=== PATIENT | male | born 1935 | race Caucasian/White ===

== ENCOUNTER → 2017-01-20 | Outpatient (CLI) | payer OTHER, MEDICAID ==
[2016-03-14 09:59] VITALS: BP 140/82
== END ==
LOC: LAB 12:32
PROVIDERS: ATTEND Internal Medicine
DX: Z12.11 Encounter for screening for malignant neoplasm of colon (principal); R19.5 Other fecal abnormalities
CPT/HCPCS: 82270

== ENCOUNTER 2017-09-04 15:49 | Emergency (ER) | payer OTHER, MEDICAID ==
[2017-09-04 16:06] VITALS: BMI 26.4
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
[2017-09-04] MEDS ORDERED: ZOFRAN INJ 4 MG VIAL IVP ONE (17:48)
[2017-09-04] MEDS ORDERED: ZOFRAN INJ 4 MG VIAL ONE (17:49)
[2017-09-04 18:48] LABS: BASOPHILS % (AUTO) 0.6 % (0.2-1.0); EOSINOPHILS # (AUTO) 0.1 x10^3/uL (0.0-0.2); EOSINOPHILS % (AUTO) 1.4 % (0.9-2.9); HEMATOCRIT 47.3 % (42.0-54.0); HEMOGLOBIN 15.7 g/dL (13.5-18.0); LYMPHOCYTES # (AUTO) 1.1 X10^3/uL (1.3-2.9); MEAN CORPUSCULAR HEMOGLOBIN 30.2 pg (27.0-34.0); MEAN CORPUSCULAR HGB CONC 33.3 g/dL (33.0-35.0); MEAN CORPUSCULAR VOLUME 90.7 fL (80.0-100.0); MONOCYTES # (AUTO) 0.9 x10^3/uL (0.3-0.8); MONOCYTES % (AUTO) 11.6 % (0.0-13.0); NEUTROPHILS # (AUTO) 5.4 x10^3/uL (2.2-4.8); NEUTROPHILS % (AUTO) 71.4 % (42.0-75.0); PLATELET COUNT 242 X10^3/uL (150.0-450.0); RED BLOOD COUNT 5.22 X10^6/uL (4.7-6.0); RED CELL DISTRIBUTION WIDTH 15.4 % (11.6-16.5); WHITE BLOOD COUNT 7.5 X10^3/uL (3.6-10.0)
[2017-09-04 19:03] LABS: BLOOD UREA NITROGEN 17 mg/dL (7-18); CARBON DIOXIDE 30.7 mmol/L (21-32); CHLORIDE 102 mmol/L (98-107); CREATININE 1.05 mg/dL (0.70-1.30); SODIUM 141 mmol/L (136-145); TROPONIN I 0.02 ng/mL (0-1.5); eGFR BLACK RACES > 60 (>60); eGFR NON BLACK RACES > 60 (>60)
[2017-09-04 19:07] LABS: ALANINE AMINOTRANSFERASE 19 Units/L (12-78); ALKALINE PHOSPHATASE 70 Units/L (46-116); ASPARTATE AMINO TRANSFERASE 22 Units/L (15-37); CKMB % 1.2 % (<4); CREATINE KINASE 135 Units/L (39-308); CREATINE KINASE MB 1.6 ng/mL (0-4.0); TOTAL PROTEIN 8.1 g/dL (6.4-8.2)
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
[2017-09-04 20:32] VITALS: BP 167/95
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
== END 2017-09-04 20:32 | disposition home or self-care (01) ==
LOC: ER 15:49
DX: S02.402A Zygomatic fracture, unspecified side, initial encounter for closed fracture (principal); S09.8XXA Other specified injuries of head, initial encounter; V87.7XXA Person injured in collision between other specified motor vehicles (traffic), initial encounter
CPT/HCPCS: 36415; 70450; 70486; 71010; 72125; 72170; 80053; 82550; 82553; 84484; 85025; 93005; 93010; 96365; 96374; 99283; J2405

== ENCOUNTER → 2018-02-09 | Outpatient (CLI) | payer OTHER, MEDICAID ==
--- NOTE | 2018-02-09 16:21 | CT ---
HISTORY: TIA, hypertension Study: CT brain without contrast Comparison: September 04, 2017 Technique: Multiple axial images of the brain were obtained from the skull base to the vertex withou t administration of IV contrast. AEC was utilized. Findings: No acute intraparenchymal hemorrhage or mass can be identified. No extra-axial fluid collections are seen. No alteration in the attenuation of the brain parenchyma can be identified to suggest acute o r subacute ischemic change. The ventricular system is symmetric and nondilated. There is chronic pe riventricular white matter disease observed and age-appropriate generalized atrophy. Extracranial st ructures are grossly unremarkable. IMPRESSION: Intra-axial changes of advancing chronological age without acute intracranial process. Reported By:
== END ==
LOC: RAD 15:12
PROVIDERS: ATTEND Internal Medicine
DX: G45.8 Other transient cerebral ischemic attacks and related syndromes (principal); I10 Essential (primary) hypertension
CPT/HCPCS: 70450

== ENCOUNTER 2019-05-18 10:51 | Inpatient (IN) ==
[2019-05-18] MEDS ORDERED: SOLU-Medrol 40 MG VIAL IVP ONE (21:20)
[2019-05-18] MEDS ORDERED: FORTAZ or TAZICEF VIAL INJ IVP ONE (21:20)
[2019-05-18] MEDS ORDERED: RESTORIL CAP 15 MG PO ONE (22:45)
[2019-05-19] MEDS ORDERED: FORTAZ or TAZICEF VIAL INJ IVP ONE ×3 (06:00→22:00)
[2019-05-19] MEDS ORDERED: SOLU-Medrol 40 MG VIAL IVP ONE ×3 (06:00→22:00)
[2019-05-19] MEDS ORDERED: LEVAQUIN PREMIX IV 750 MG IV ONE (09:00)
[2019-05-19] MEDS ORDERED: NORCO 5/325 MG TAB PO ONE (12:00)
[2019-05-19] MEDS ORDERED: SENOKOT PO ONE (14:19)
[2019-05-19] MEDS ORDERED: ANTIVERT TAB 25 MG PO ONE ×2 (14:19→21:23)
[2019-05-19] MEDS ORDERED: ZANTAC PO ONE (14:19)
[2019-05-19] MEDS ORDERED: ZESTRIL TAB 10 MG PO ONE ×2 (14:19→21:23)
[2019-05-19] MEDS ORDERED: DIFLUCAN PO ONE (14:20)
[2019-05-19] MEDS ORDERED: KEFLEX CAP 500 MG PO ONE (14:20)
[2019-05-19] MEDS ORDERED: AMBIEN PO ONE (23:00)
[2019-05-19] MEDS ORDERED: NORCO 10/325 TAB PO ONE (23:00)
[2019-05-20] MEDS ORDERED: FORTAZ or TAZICEF VIAL INJ IVP ONE ×3 (05:00→21:10)
[2019-05-20] MEDS ORDERED: SOLU-Medrol 40 MG VIAL IVP ONE ×3 (05:00→21:10)
[2019-05-20] MEDS ORDERED: DIFLUCAN PO ONE (08:12)
[2019-05-20] MEDS ORDERED: LEVAQUIN PREMIX IV 750 MG IV ONE (08:12)
[2019-05-20] MEDS ORDERED: ZESTRIL TAB 10 MG PO ONE ×2 (08:12→21:10)
[2019-05-20] MEDS ORDERED: ANTIVERT TAB 25 MG PO ONE ×2 (08:12→21:10)
[2019-05-20] MEDS ORDERED: ZANTAC PO ONE (08:12)
[2019-05-20] MEDS ORDERED: SENOKOT PO ONE (08:12)
[2019-05-20] MEDS ORDERED: NORCO 10/325 TAB PO ONE ×2 (13:00→23:00)
[2019-05-20] MEDS ORDERED: AMBIEN PO ONE (23:00)
[2019-05-21 06:12] LABS: BASOPHILS % (AUTO) 0.1 % (0.2-1.0); HEMOGLOBIN 12.8 g/dL (13.5-18.0); LYMPHOCYTES # (AUTO) 1.5 X10^3/uL (1.3-2.9); LYMPHOCYTES % (AUTO) 10.3 % (21.0-51.0); MEAN CORPUSCULAR HEMOGLOBIN 30.8 pg (27.0-34.0); MEAN CORPUSCULAR HGB CONC 33.8 g/dL (33.0-35.0); MEAN CORPUSCULAR VOLUME 91.3 fL (80.0-100.0); MEAN PLATELET VOLUME 7.3 fL (7.4-11.0); MONOCYTES # (AUTO) 0.5 x10^3/uL (0.3-0.8); MONOCYTES % (AUTO) 3.6 % (0.0-13.0); NEUTROPHILS # (AUTO) 12.4 x10^3/uL (2.2-4.8); PLATELET COUNT 328 X10^3/uL (150.0-450.0); RED BLOOD COUNT 4.17 X10^6/uL (4.7-6.0); RED CELL DISTRIBUTION WIDTH 15.5 % (11.6-16.5); WHITE BLOOD COUNT 14.4 X10^3/uL (3.6-10.0)
[2019-05-21 06:22] LABS: ALANINE AMINOTRANSFERASE 21 Units/L (12-78); ALBUMIN 2.4 g/dL (3.4-5.0); ALKALINE PHOSPHATASE 51 Units/L (46-116); ASPARTATE AMINO TRANSFERASE 22 Units/L (15-37); BLOOD UREA NITROGEN 24 mg/dL (7-18); CALCIUM 8.2 mg/dL (8.5-10.1); CARBON DIOXIDE 25.3 mmol/L (21-32); CHLORIDE 105 mmol/L (98-107); COR CA(FOR HYPOALB) 9.5 mg/dL (8.5-10.1); COR NA(FOR HYPERGLY) 141 mmol/L (136-145); CREATININE 1.01 mg/dL (0.70-1.30); SODIUM 140 mmol/L (136-145); TOTAL PROTEIN 6.4 g/dL (6.4-8.2); eGFR NON BLACK RACES > 60 (>60)
[2019-05-21] MEDS ORDERED: XOPENEX 1.25 MG/3 ML NEBULE NEB SCH (08:00)
[2019-05-21 08:01] LABS: PLATELET MORPHOLOGY COMMENT NORMAL (NORMAL)
[2019-05-21 09:31] LABS: ALANINE AMINOTRANSFERASE 13 Units/L (12-78); ALBUMIN 2.9 g/dL (3.4-5.0); ALKALINE PHOSPHATASE 54 Units/L (46-116); ASPARTATE AMINO TRANSFERASE 17 Units/L (15-37); BLOOD UREA NITROGEN 25 mg/dL (7-18); CALCIUM 8.6 mg/dL (8.5-10.1); CARBON DIOXIDE 26.6 mmol/L (21-32); CHLORIDE 99 mmol/L (98-107); COR CA(FOR HYPOALB) 9.5 mg/dL (8.5-10.1); COR NA(FOR HYPERGLY) 135 mmol/L (136-145); CREATININE 1.21 mg/dL (0.70-1.30); LACTIC ACID 0.9 mmol/L (0.4-2.0); SODIUM 135 mmol/L (136-145); TOTAL PROTEIN 7.7 g/dL (6.4-8.2); eGFR NON BLACK RACES > 60 (>60)
[2019-05-21 09:33] LABS: BASOPHILS % (AUTO) 0.3 % (0.2-1.0); EOSINOPHILS % (AUTO) 0.9 % (0.9-2.9); HEMATOCRIT 41.5 % (42.0-54.0); LYMPHOCYTES % (AUTO) 15.4 % (21.0-51.0); MEAN CORPUSCULAR HEMOGLOBIN 31.2 pg (27.0-34.0); MEAN CORPUSCULAR HGB CONC 33.8 g/dL (33.0-35.0); MEAN CORPUSCULAR VOLUME 92.2 fL (80.0-100.0); MEAN PLATELET VOLUME 7.6 fL (7.4-11.0); MONOCYTES % (AUTO) 18.7 % (0.0-13.0); NEUTROPHILS % (AUTO) 64.7 % (42.0-75.0); PLATELET COUNT 286 X10^3/uL (150.0-450.0); RED CELL DISTRIBUTION WIDTH 15.5 % (11.6-16.5); WHITE BLOOD COUNT 8.5 X10^3/uL (3.6-10.0)
[2019-05-21 09:34] LABS: EOSINOPHILS # (AUTO) 0.1 x10^3/uL (0.0-0.2); LYMPHOCYTES # (AUTO) 1.3 X10^3/uL (1.3-2.9); MONOCYTES # (AUTO) 1.6 x10^3/uL (0.3-0.8); NEUTROPHILS # (AUTO) 5.5 x10^3/uL (2.2-4.8)
[2019-05-21 09:38] LABS: CKMB % 0.8 % (<4); CREATINE KINASE MB 1.1 ng/mL (0-4.0)
[2019-05-21 09:39] LABS: CKMB % 1.2 % (<4); CREATINE KINASE 106 Units/L (39-308); CREATINE KINASE MB 1.3 ng/mL (0-4.0)
[2019-05-21 09:40] LABS: TROPONIN I < 0.02 ng/mL (0-1.5)
[2019-05-21 09:41] LABS: BLOOD UREA NITROGEN 19 mg/dL (7-18); CARBON DIOXIDE 24.9 mmol/L (21-32); CHLORIDE 103 mmol/L (98-107); COR NA(FOR HYPERGLY) 139 mmol/L (136-145); CREATININE 1.06 mg/dL (0.70-1.30); SODIUM 137 mmol/L (136-145); eGFR NON BLACK RACES > 60 (>60)
[2019-05-21 09:42] LABS: ALANINE AMINOTRANSFERASE 18 Units/L (12-78); ALBUMIN 2.6 g/dL (3.4-5.0); ALKALINE PHOSPHATASE 54 Units/L (46-116); ASPARTATE AMINO TRANSFERASE 16 Units/L (15-37); CALCIUM 8.4 mg/dL (8.5-10.1); COR CA(FOR HYPOALB) 9.5 mg/dL (8.5-10.1); TOTAL PROTEIN 7.4 g/dL (6.4-8.2)
[2019-05-21 09:43] LABS: RED BLOOD COUNT 4.44 X10^6/uL (4.7-6.0); WHITE BLOOD COUNT 5.9 X10^3/uL (3.6-10.0)
[2019-05-21 09:44] LABS: HEMATOCRIT 41.4 % (42.0-54.0); HEMOGLOBIN 13.8 g/dL (13.5-18.0); MEAN CORPUSCULAR HEMOGLOBIN 31.1 pg (27.0-34.0); MEAN CORPUSCULAR HGB CONC 33.3 g/dL (33.0-35.0); MEAN CORPUSCULAR VOLUME 93.2 fL (80.0-100.0)
[2019-05-21 09:45] LABS: BASOPHILS % (AUTO) 0.2 % (0.2-1.0); LYMPHOCYTES # (AUTO) 0.8 X10^3/uL (1.3-2.9); LYMPHOCYTES % (AUTO) 13.7 % (21.0-51.0); MEAN PLATELET VOLUME 7.5 fL (7.4-11.0); MONOCYTES # (AUTO) 0.2 x10^3/uL (0.3-0.8); MONOCYTES % (AUTO) 2.7 % (0.0-13.0); NEUTROPHILS # (AUTO) 4.9 x10^3/uL (2.2-4.8); NEUTROPHILS % (AUTO) 83.4 % (42.0-75.0); PLATELET COUNT 286 X10^3/uL (150.0-450.0); RED CELL DISTRIBUTION WIDTH 15.7 % (11.6-16.5)
[2019-05-21 09:46] LABS: BLOOD UREA NITROGEN 24 mg/dL (7-18); CALCIUM 8.3 mg/dL (8.5-10.1); CARBON DIOXIDE 25.3 mmol/L (21-32); CHLORIDE 106 mmol/L (98-107); COR NA(FOR HYPERGLY) 141 mmol/L (136-145); CREATININE 1.08 mg/dL (0.70-1.30); SODIUM 140 mmol/L (136-145); eGFR NON BLACK RACES > 60 (>60)
[2019-05-21 09:47] LABS: ALANINE AMINOTRANSFERASE 19 Units/L (12-78); ALBUMIN 2.4 g/dL (3.4-5.0); ALKALINE PHOSPHATASE 50 Units/L (46-116); ASPARTATE AMINO TRANSFERASE 16 Units/L (15-37); COR CA(FOR HYPOALB) 9.6 mg/dL (8.5-10.1); HEMATOCRIT 38.3 % (42.0-54.0); HEMOGLOBIN 12.8 g/dL (13.5-18.0); RED BLOOD COUNT 4.15 X10^6/uL (4.7-6.0); TOTAL PROTEIN 6.7 g/dL (6.4-8.2); WHITE BLOOD COUNT 11.3 X10^3/uL (3.6-10.0)
[2019-05-21 09:48] LABS: BAND NEUTROPHILS % 5 % (0-10); BASOPHILS % (AUTO) 0.2 % (0.2-1.0); LYMPHOCYTES # (AUTO) 1.4 X10^3/uL (1.3-2.9); MEAN CORPUSCULAR HGB CONC 33.5 g/dL (33.0-35.0); MEAN CORPUSCULAR VOLUME 92.3 fL (80.0-100.0); MEAN PLATELET VOLUME 7.7 fL (7.4-11.0); MONOCYTES # (AUTO) 0.6 x10^3/uL (0.3-0.8); MONOCYTES % (AUTO) 4.9 % (0.0-13.0); NEUTROPHILS # (AUTO) 9.4 x10^3/uL (2.2-4.8); NEUTROPHILS % (AUTO) 82.9 % (42.0-75.0); PLATELET COUNT 299 X10^3/uL (150.0-450.0); RED CELL DISTRIBUTION WIDTH 15.4 % (11.6-16.5)
[2019-05-21 09:49] LABS: PLATELET MORPHOLOGY COMMENT NORMAL (NORMAL)
[2019-05-21] MEDS: ANTIVERT TAB 25 MG PO SCH ×3 (14:29→21:12)
[2019-05-21] MEDS: FORTAZ or TAZICEF VIAL INJ IVP SCH ×2 (14:32→21:12)
[2019-05-21] MEDS: SOLU-Medrol 125 MG VIAL IVP SCH ×2 (14:32→21:11)
[2019-05-21] MEDS: DIFLUCAN PO SCH (14:37)
[2019-05-21] MEDS: LEVAQUIN PREMIX IV 750 MG 750 MG/150 ML BAG IV SCH (14:37)
[2019-05-21] MEDS: SENOKOT PO SCH (14:38)
[2019-05-21] MEDS: COREG TAB 6.25 MG PO SCH ×2 (14:38→21:12)
[2019-05-21] MEDS: ZESTRIL TAB 10 MG PO SCH ×2 (14:38→21:12)
[2019-05-21] MEDS: ZANTAC PO SCH (14:38)
[2019-05-21 15:11] LABS: ABG BASE EXCESS 1.3 mmol/L (-2.0-2.0); ABG HCO3 26.6 mmol/L (22-26)
[2019-05-21 15:12] LABS: FRACTIONATED INSPIRED OXYGEN 28
[2019-05-21 15:30] LABS: ABG BASE EXCESS 1.2 mmol/L (-2.0-2.0)
[2019-05-21 15:31] LABS: ABG ALLEN TEST POS; FRACTIONATED INSPIRED OXYGEN 21
[2019-05-21] MEDS: NORCO 10/325 TAB PO PRN ×2 (17:07→23:10)
[2019-05-21] MEDS: AMBIEN PO PRN (23:10)
[2019-05-22] MEDS: XOPENEX 1.25 MG/3 ML NEBULE NEB SCH ×4 (00:05→17:19)
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
[2019-05-22 05:17] LABS: BASOPHILS % (AUTO) 0.1 % (0.2-1.0); HEMOGLOBIN 14.3 g/dL (13.5-18.0); LYMPHOCYTES # (AUTO) 2.1 X10^3/uL (1.3-2.9); LYMPHOCYTES % (AUTO) 14.1 % (21.0-51.0); MEAN CORPUSCULAR HEMOGLOBIN 30.8 pg (27.0-34.0); MEAN CORPUSCULAR HGB CONC 33.2 g/dL (33.0-35.0); MEAN CORPUSCULAR VOLUME 92.8 fL (80.0-100.0); MEAN PLATELET VOLUME 7.3 fL (7.4-11.0); MONOCYTES # (AUTO) 0.4 x10^3/uL (0.3-0.8); MONOCYTES % (AUTO) 2.5 % (0.0-13.0); NEUTROPHILS # (AUTO) 12.5 x10^3/uL (2.2-4.8); NEUTROPHILS % (AUTO) 83.3 % (42.0-75.0); PLATELET COUNT 351 X10^3/uL (150.0-450.0); RED BLOOD COUNT 4.63 X10^6/uL (4.7-6.0); RED CELL DISTRIBUTION WIDTH 15.6 % (11.6-16.5)
[2019-05-22] MEDS: NORCO 10/325 TAB PO PRN ×4 (05:20→22:58)
[2019-05-22 05:26] LABS: BLOOD UREA NITROGEN 27 mg/dL (7-18); CALCIUM 8.5 mg/dL (8.5-10.1); CARBON DIOXIDE 25.8 mmol/L (21-32); CHLORIDE 104 mmol/L (98-107); COR NA(FOR HYPERGLY) 139 mmol/L (136-145); CREATININE 0.97 mg/dL (0.70-1.30); SODIUM 139 mmol/L (136-145); eGFR NON BLACK RACES > 60 (>60)
[2019-05-22] MEDS: FORTAZ or TAZICEF VIAL INJ IVP SCH ×3 (05:26→20:59)
[2019-05-22] MEDS: SENOKOT PO SCH (09:15)
[2019-05-22] MEDS: ANTIVERT TAB 25 MG PO SCH ×2 (09:15→20:55)
[2019-05-22] MEDS: ZESTRIL TAB 10 MG PO SCH ×2 (09:15→20:55)
[2019-05-22] MEDS: DIFLUCAN PO SCH (09:15)
[2019-05-22] MEDS: COREG TAB 6.25 MG PO SCH ×2 (09:15→20:55)
[2019-05-22] MEDS: ZANTAC PO SCH (09:15)
[2019-05-22] MEDS: LEVAQUIN PREMIX IV 750 MG 750 MG/150 ML BAG IV SCH (09:15)
[2019-05-22] MEDS: SOLU-Medrol 125 MG VIAL IVP SCH (11:04)
[2019-05-22] MEDS: AMBIEN PO PRN (22:58)
[2019-05-23] MEDS: XOPENEX 1.25 MG/3 ML NEBULE NEB SCH ×4 (00:36→17:13)
[2019-05-23 04:38] LABS: BASOPHILS % (AUTO) 0.4 % (0.2-1.0); EOSINOPHILS # (AUTO) 0.1 x10^3/uL (0.0-0.2); EOSINOPHILS % (AUTO) 0.6 % (0.9-2.9); HEMATOCRIT 43.4 % (42.0-54.0); HEMOGLOBIN 14.4 g/dL (13.5-18.0); LYMPHOCYTES # (AUTO) 3.2 X10^3/uL (1.3-2.9); LYMPHOCYTES % (AUTO) 24.7 % (21.0-51.0); MEAN CORPUSCULAR HEMOGLOBIN 30.4 pg (27.0-34.0); MEAN CORPUSCULAR HGB CONC 33.1 g/dL (33.0-35.0); MEAN PLATELET VOLUME 7.1 fL (7.4-11.0); MONOCYTES # (AUTO) 0.9 x10^3/uL (0.3-0.8); MONOCYTES % (AUTO) 7.3 % (0.0-13.0); NEUTROPHILS # (AUTO) 8.6 x10^3/uL (2.2-4.8); PLATELET COUNT 337 X10^3/uL (150.0-450.0); RED BLOOD COUNT 4.72 X10^6/uL (4.7-6.0); RED CELL DISTRIBUTION WIDTH 15.3 % (11.6-16.5); WHITE BLOOD COUNT 12.9 X10^3/uL (3.6-10.0)
[2019-05-23 04:53] LABS: ALANINE AMINOTRANSFERASE 34 Units/L (12-78); ALBUMIN 2.6 g/dL (3.4-5.0); ALKALINE PHOSPHATASE 43 Units/L (46-116); ASPARTATE AMINO TRANSFERASE 23 Units/L (15-37); BLOOD UREA NITROGEN 26 mg/dL (7-18); CALCIUM 8.4 mg/dL (8.5-10.1); CARBON DIOXIDE 28.7 mmol/L (21-32); CHLORIDE 102 mmol/L (98-107); COR CA(FOR HYPOALB) 9.5 mg/dL (8.5-10.1); SODIUM 138 mmol/L (136-145); TOTAL PROTEIN 6.5 g/dL (6.4-8.2); eGFR NON BLACK RACES > 60 (>60)
[2019-05-23] MEDS: FORTAZ or TAZICEF VIAL INJ IVP SCH ×3 (05:10→21:28)
[2019-05-23] MEDS: NORCO 10/325 TAB PO PRN ×4 (05:10→22:54)
[2019-05-23] MEDS: LEVAQUIN PREMIX IV 750 MG 750 MG/150 ML BAG IV SCH (08:30)
[2019-05-23] MEDS: COREG TAB 6.25 MG PO SCH ×2 (08:30→21:28)
[2019-05-23] MEDS: SENOKOT PO SCH (08:30)
[2019-05-23] MEDS: DIFLUCAN PO SCH (08:30)
[2019-05-23] MEDS: ANTIVERT TAB 25 MG PO SCH ×2 (08:30→21:28)
[2019-05-23] MEDS: ZANTAC PO SCH (08:30)
[2019-05-23] MEDS: ZESTRIL TAB 10 MG PO SCH ×2 (08:30→21:28)
[2019-05-23] MEDS ORDERED: DUONEB 0.5 MG/3 MG NEB SCH (10:15)
[2019-05-23] MEDS: Atrovent NEB TX 0.02% NEB SCH ×2 (12:00→17:13)
[2019-05-23] MEDS: AMBIEN PO PRN (22:54)
[2019-05-24] MEDS: Atrovent NEB TX 0.02% NEB SCH ×3 (00:50→12:05)
[2019-05-24] MEDS: XOPENEX 1.25 MG/3 ML NEBULE NEB SCH ×3 (00:50→12:05)
[2019-05-24] MEDS: NORCO 10/325 TAB PO PRN ×2 (04:56→11:23)
[2019-05-24] MEDS: FORTAZ or TAZICEF VIAL INJ IVP SCH ×2 (05:02→13:49)
[2019-05-24 05:10] LABS: BASOPHILS % (AUTO) 0.2 % (0.2-1.0); EOSINOPHILS # (AUTO) 0.2 x10^3/uL (0.0-0.2); EOSINOPHILS % (AUTO) 1.9 % (0.9-2.9); HEMATOCRIT 42.5 % (42.0-54.0); HEMOGLOBIN 14.3 g/dL (13.5-18.0); LYMPHOCYTES # (AUTO) 3.3 X10^3/uL (1.3-2.9); LYMPHOCYTES % (AUTO) 27.1 % (21.0-51.0); MEAN CORPUSCULAR HEMOGLOBIN 30.5 pg (27.0-34.0); MEAN CORPUSCULAR HGB CONC 33.6 g/dL (33.0-35.0); MEAN CORPUSCULAR VOLUME 90.9 fL (80.0-100.0); MEAN PLATELET VOLUME 6.9 fL (7.4-11.0); MONOCYTES # (AUTO) 0.9 x10^3/uL (0.3-0.8); MONOCYTES % (AUTO) 7.3 % (0.0-13.0); NEUTROPHILS # (AUTO) 7.8 x10^3/uL (2.2-4.8); NEUTROPHILS % (AUTO) 63.5 % (42.0-75.0); PLATELET COUNT 328 X10^3/uL (150.0-450.0); RED BLOOD COUNT 4.67 X10^6/uL (4.7-6.0); RED CELL DISTRIBUTION WIDTH 15.4 % (11.6-16.5); WHITE BLOOD COUNT 12.2 X10^3/uL (3.6-10.0)
[2019-05-24 06:52] LABS: ALANINE AMINOTRANSFERASE 24 Units/L (12-78); ALBUMIN 2.5 g/dL (3.4-5.0); ALKALINE PHOSPHATASE 45 Units/L (46-116); ASPARTATE AMINO TRANSFERASE 22 Units/L (15-37); BLOOD UREA NITROGEN 26 mg/dL (7-18); CALCIUM 8.2 mg/dL (8.5-10.1); CHLORIDE 102 mmol/L (98-107); COR CA(FOR HYPOALB) 9.4 mg/dL (8.5-10.1); CREATININE 0.94 mg/dL (0.70-1.30); SODIUM 139 mmol/L (136-145); TOTAL PROTEIN 6.3 g/dL (6.4-8.2); eGFR NON BLACK RACES > 60 (>60)
[2019-05-24] MEDS: ANTIVERT TAB 25 MG PO SCH (08:16)
[2019-05-24] MEDS: DIFLUCAN PO SCH (08:16)
[2019-05-24] MEDS: SENOKOT PO SCH (08:16)
[2019-05-24] MEDS: ZANTAC PO SCH (08:16)
[2019-05-24] MEDS: ZESTRIL TAB 10 MG PO SCH (08:16)
[2019-05-24] MEDS: LEVAQUIN PREMIX IV 750 MG 750 MG/150 ML BAG IV SCH (08:17)
[2019-05-24] MEDS: COREG TAB 6.25 MG PO SCH (08:26)
[2019-05-24 16:06] VITALS: BP 134/71
== END 2019-05-24 16:55 | disposition home health service (06) | DRG 190 ==
LOC: ER 10:51 → MED/SURG 17:36
PROVIDERS: ADMIT Internal Medicine; ATTEND Internal Medicine
DX: R09.02 Hypoxemia; J44.9 Chronic obstructive pulmonary disease, unspecified; R07.89 Other chest pain; R00.0 Tachycardia, unspecified; R53.1 Weakness; I10 Essential (primary) hypertension; B96.89 Other specified bacterial agents as the cause of diseases classified elsewhere; I71.02 Dissection of abdominal aorta; J20.8 Acute bronchitis due to other specified organisms
CPT/HCPCS: 36415; 36600; 71010; 71020; 71045; 71046; 71275; 80048; 80053; 82550; 82553; 82803; 83605; 84484; 85025; 85378; 87040; 87070; 87077; 87186; 87205; 93005; 94640; 96365; 96367; 96374; 96375; 99284; A4222; J0713; J1956; J2920; J2930; J7030; J7050; J7644

== ENCOUNTER 2021-07-26 12:50 | Observation (INO) ==
[2021-07-26 13:04] VITALS: BMI 30.7
[2021-07-26] MEDS ORDERED: NS 1000 ML 1,000 ML IV STA (13:08)
--- NOTE | 2021-07-26 13:08 | DR.EXTPAIN ---
HPI Time seen Time Seen by Provider: 07/26/21 12:54 PCP Primary Care Physician: HPI Comment HPI Comment: PATIENT WITH A HISTORY OF COPD FELL AMBULATING WITH WALKER LAST NIGHT, STRUCK BACK OF HEAD, COMPLAINS OF NECK PAIN AND BACK PAIN, LAID OF FLOOR SINCE MIDNIGHT TO 8AM. DENEIS HEADACHE, BLURRED VISION, NUMBNESS, TINGLING OR WEAKNESS IN EXTREMITIES. Complaint/Symptoms Chief Complaint Doctor Comments: FALL LAST NIGHT, PAIN TO BACK OF HEAD NECK BACK AND SHOULDER Chief Complaint:: PT ARRIVED PER [facility] FROM HOME W/ C/O LEFT SHOULDER PAIN, LOWER BACK PAIN, & BRUISING TO RIGHT ARM D/T S/P FALL LAST NIGHT. PT STATES HE HAS HX OF CHRONIC BACK PAIN. COVID-19 Coronavirus risk:travel/contact w/high risk person: No Has patient experienced Coronavirus symptoms: No Source History Provided: Patient Mode of arrival Mode of Arrival: EMS Timing Onset of Chief Complaint: 07/25/21 Context History of: Arthritis Associated signs and symptoms Associated Signs and Symptoms: Weakness and Pain PMH PMH Past Medical History: Yes Past Medical History: COPD and Hypertension Past Surgical History: Yes Surgical History: Ortho Surgery Family History History of Family Medical Conditions: Yes Family Medical History: Hypertension Social History Do you use any recreational Drugs:: No Travel Risk Coronavirus risk:travel/contact w/high risk person: No Has patient experienced Coronavirus symptoms: No Infectious screening Have you traveled outside the country in the last 6 months?: No Isolation: Standard ROS Review of Systems Constitutional: See HPI Eyes: No Symptoms Reported ENTM: No Symptoms Reported Respiratoy: No Symptoms Reported Cardiovascular: No Symptoms Reported Gastrointestinal/Abdominal: No Symptoms Reported Genitourinary: No Symptoms Reported Neurological: No Symptoms Reported Musculoskeletal: See HPI, Back Pain, Joint Pain (LEFT SHOULDER PAIN) and Neck Integumentary: Bruises (RIGHT PROXIMAL FOREARM AND ELBOW) Hematologic/Lymphatic: No Symptoms Reported Endocrine: No Symptoms Reported Psychiatric: No Symptoms Reported All Other Systems: Reviewed and Negative PE Vital Signs Vitals: Temperature 98.4 F Pulse Rate 93 Respiratory Rate 24 Blood Pressure [Left Arm] 119/74 Blood Pressure 146/78 O2 Sat by Pulse Oximetry 92 General General Appearance: Alert and In No Apparent Distress (ARRIVIES TO EMERGENCY ALERT AND APPROPRIATE) Head Head Exam: Atraumatic Eyes Eye exam: Normal Appearance, PERRL and EOMI ENT ENT Exam: Normal Exam, Normal Oropharynx and Normal External Ear Exam Neck Neck Exam: Normal Inspection, Full ROM and Trachea Midline Chest Chest Inspection: Normal Inspection and Symmetric Chest Wall Rise Respiratory Respiratory Exam: Normal Lung Sounds Bilat Respiratory Exam: Bilateral: Clear to Auscultation Cardiovascular Cardiovascular Exam: Regular Rate and Normal Rhythm Abdominal Exam Abdominal Exam: Normal Inspection, Normal Bowel Sounds and Soft (NONTENDER) Extremities Extremities Exam: Tenderness (LEFT HUMERAL HEAD, NO SWELLING OR CREPITUS) Upper Extremities Shoulder Exam: Normal Inspection, Full ROM and Tenderness Arm Exam: Ecchymosis (PROXIMAL LATERAL RIGHT FOREARM, NO CREPITUS, FULL RANGE OF MOTION RIGHT ELBOW, RIGHT RADIAL PULSE 2+) Forearm Exam: Ecchymosis Lower Extremities Hip/Pelvis Exam: Normal Inspection and Full ROM Upper Leg Exam: Normal Inspection, Full ROM and Tenderness Back Back Exam: Normal Inspection, Tenderness and Vertebral Tenderness (TENDERNESS THORACIC T-7 TO LUMBAR L-4 WITH PARASPINAL TENDERNESS) Neurological Neurological Exam: Alert and Oriented X3 Skin Skin Exam: Warm and Dry MDM Differential Diagnosis Differential Diagnosis: Other (CLOSED HEAD INJURY, CERVICAL, THORACIC, LUMBAR STRAIN, CONTUSION STRAIN LEFT SHOULDER. RIGHT ELBOW) COURSE Treatment Treatment: IV NORMAL SALINE 200ML/HR, ZOFRAN 4MG, MORPHINE 2MG IV, LAN CATHETER FOR URINARY RETENTION Consultation Call Returned: 16:33 Consultation Comments: DISCUSSED WITH DR BLANCAS FOR ADMIT TO OBSERVATION ROR Labs Reviewed Laboratory Results Reviewed?: Yes Result Diagrams: 07/26/21 13:29 07/26/21 13:29 Laboratory: WBC 11.5 X10^3/uL (3.6-10.0) H 07/26/21 13:29 RBC 5.40 X10^6/uL (4.7-6.0) 07/26/21 13:29 Hgb 16.1 g/dL (13.5-18.0) 07/26/21 13:29 Hct 49.6 % (42.0-54.0) 07/26/21 13:29 MCV 91.9 fL (80.0-100.0) 07/26/21 13:29 MCH 29.8 pg (27.0-34.0) 07/26/21 13:29 MCHC 32.4 g/dL (33.0-35.0) L 07/26/21 13:29 RDW 15.3 % (11.6-16.5) 07/26/21 13:29 Plt Count 256 X10^3/uL (150.0-450.0) 07/26/21 13:29 MPV 7.9 fL (7.4-11.0) 07/26/21 13:29 Neut % (Auto) 76.5 % (42.0-75.0) H 07/26/21 13:29 Lymph % (Auto) 11.3 % (21.0-51.0) L 07/26/21 13:29 Ida % (Auto) 11.1 % (0.0-13.0) 07/26/21 13:29 Eos % (Auto) 0.5 % (0.9-2.9) L 07/26/21 13:29 Baso % (Auto) 0.6 % (0.2-1.0) 07/26/21 13:29 Neut # (Auto) 8.8 x10^3/uL (2.2-4.8) H 07/26/21 13:29 Lymph # (Auto) 1.3 X10^3/uL (1.3-2.9) 07/26/21 13:29 Ida # (Auto) 1.3 x10^3/uL (0.3-0.8) H 07/26/21 13:29 Eos # (Auto) 0.1 x10^3/uL (0.0-0.2) 07/26/21 13:29 Baso # (Auto) 0.1 X10^3/uL (0.0-0.1) 07/26/21 13:29 Absolute Nucleated RBC 0.0 /100WBC 07/26/21 13:29 Sodium 139 mmol/L (136-145) 07/26/21 13:29 Corrected Sodium TNP 07/26/21 13:29 Potassium 4.5 mmol/L (3.5-5.1) 07/26/21 13:29 Chloride 104 mmol/L (98-107) 07/26/21 13:29 Carbon Dioxide 26.9 mmol/L (21-32) 07/26/21 13:29 BUN 16 mg/dL (7-18) 07/26/21 13:29 Creatinine 1.14 mg/dL (0.70-1.30) 07/26/21 13:29 Est GFR (MDRD) Af Amer > 60 (>60) 07/26/21 13:29 Est GFR (MDRD) Non-Af > 60 (>60) 07/26/21 13:29 Glucose 107 mg/dL (65-99) H 07/26/21 13:29 Calcium 8.6 mg/dL (8.5-10.1) 07/26/21 13:29 Corrected Calcium TNP 07/26/21 13:29 Total Bilirubin 0.90 mg/dL (0.2-1.0) 07/26/21 13:29 AST 26 Units/L (15-37) 07/26/21 13:29 ALT 17 Units/L (12-78) 07/26/21 13:29 Alkaline Phosphatase 45 Units/L (46-116) L 07/26/21 13:29 Creatine Kinase 324 Units/L (39-308) H 07/26/21 13:29 Troponin I < 0.02 ng/mL (0-1.5) 07/26/21 13:29 Total Protein 7.2 g/dL (6.4-8.2) 07/26/21 13:29 Albumin 3.7 g/dL (3.4-5.0) 07/26/21 13:29 Globulin 3.5 g/dL (2.5-4.5) 07/26/21 13:29 Albumin/Globulin Ratio 1.1 Ratio (1.1-2.1) 07/26/21 13:29 Specimen Type Catherized urine 07/26/21 15:23 Urine Color Yellow (YELLOW) 07/26/21 15:23 Urine Appearance Clear (CLEAR) 07/26/21 15:23 Urine pH 7.0 (5.0 - 8.0) 07/26/21 15:23 Ur Specific [place] 1.015 (1.000-1.030) 07/26/21 15:23 Urine Protein 1+ (NEGATIVE) 07/26/21 15:23 Urine Glucose (UA) Negative (NEGATIVE) 07/26/21 15:23 Urine Ketones Negative (NEGATIVE) 07/26/21 15:23 Urine Occult Blood Negative (NEGATIVE) 07/26/21 15:23 Urine Nitrite Negative (NEGATIVE) 07/26/21 15:23 Urine Bilirubin Negative (NEGATIVE) 07/26/21 15:23 Urine Urobilinogen Normal (NORMAL) 07/26/21 15:23 Ur Leukocyte Esterase Negative (NEGATIVE) 07/26/21 15:23 Urine RBC None seen /HPF (0-3) 07/26/21 15:23 Urine WBC None seen /HPF (0-5) 07/26/21 15:23 Ur Squamous Epith Cells Rare /HPF (NEGATIVE) 07/26/21 15:23 Urine Bacteria Negative /HPF (NEGATIVE) 07/26/21 15:23 Ur Culture Indicated? No/not indicated 07/26/21 15:23 XRAY XRAY Interpreted by: Radiologist (HEAD CT SCAN- NO INTRACRANIAL ABNORMALITY, CERVICAL SPINE CT- NO EVIDENCE OF FRACTURE, THORACIC SPINE CT NO ACUTE FRACTURE, MULTIPLE DEGENERATIVE LISTHESIS, LUMBAR SPINE CT -MULTILEVEL DEGENERATIVE DISC DISEASE, OSTEOPHYTES, NO FRACTURE,) X-ray Results: CHEST XRAY-CONSISTENT WITH COPD, RIGHT FOREARM- NO EVIDENCE OF FRACTURE, RIGHT ELBOW- ARTHRITIS WITH NO EVIDENCE OF FRACTURE, LEFT SHOULDER - ARTHRITIS WITHOUT EVIDENCE OF FRACTURE EKG Rate: 95 Rhythm: NSR (OLD ANTERIOR INFARCT, NO ECTOPY OR ISCHEMIC CHANGES) Opioid Opioid Risk Tool Age (Osorio box if 16-45): No History of Preadolescent Sexual Abuse: No Total: 0 Total Score Risk Category: Low Risk Copyright: Pravin GEORGES predicting aberrant behaviors Diagnosis Discharge Problem: Frequent falls, Generalized weakness, Chronic low back pain, Acute urinary retention
[2021-07-26] MEDS ORDERED: ZOFRAN INJ 4 MG VIAL IVP ONE ×2 (13:13→16:55)
[2021-07-26] MEDS ORDERED: MORPHINE SULFATE INJ 2 MG INJ IVP ONE ×2 (13:13→16:55)
[2021-07-26] MEDS ORDERED: ZOFRAN INJ 4 MG VIAL ONE ×2 (13:23→17:15)
[2021-07-26] MEDS ORDERED: MORPHINE SULFATE INJ 2 MG INJ ONE ×2 (13:23→17:15)
[2021-07-26] MEDS ORDERED: NS 1000 ML 1,000 ML ONE (13:23)
[2021-07-26 13:46] LABS: BASOPHILS # (AUTO) 0.1 X10^3/uL (0.0-0.1); BASOPHILS % (AUTO) 0.6 % (0.2-1.0); EOSINOPHILS # (AUTO) 0.1 x10^3/uL (0.0-0.2); EOSINOPHILS % (AUTO) 0.5 % (0.9-2.9); HEMATOCRIT 49.6 % (42.0-54.0); HEMOGLOBIN 16.1 g/dL (13.5-18.0); LYMPHOCYTES # (AUTO) 1.3 X10^3/uL (1.3-2.9); LYMPHOCYTES % (AUTO) 11.3 % (21.0-51.0); MEAN CORPUSCULAR HEMOGLOBIN 29.8 pg (27.0-34.0); MEAN CORPUSCULAR HGB CONC 32.4 g/dL (33.0-35.0); MEAN CORPUSCULAR VOLUME 91.9 fL (80.0-100.0); MEAN PLATELET VOLUME 7.9 fL (7.4-11.0); MONOCYTES # (AUTO) 1.3 x10^3/uL (0.3-0.8); MONOCYTES % (AUTO) 11.1 % (0.0-13.0); NEUTROPHILS # (AUTO) 8.8 x10^3/uL (2.2-4.8); NEUTROPHILS % (AUTO) 76.5 % (42.0-75.0); PLATELET COUNT 256 X10^3/uL (150.0-450.0); RED CELL DISTRIBUTION WIDTH 15.3 % (11.6-16.5); WHITE BLOOD COUNT 11.5 X10^3/uL (3.6-10.0)
[2021-07-26 14:03] LABS: ALANINE AMINOTRANSFERASE 17 Units/L (12-78); ALBUMIN 3.7 g/dL (3.4-5.0); ALKALINE PHOSPHATASE 45 Units/L (46-116); ASPARTATE AMINO TRANSFERASE 26 Units/L (15-37); BLOOD UREA NITROGEN 16 mg/dL (7-18); CALCIUM 8.6 mg/dL (8.5-10.1); CARBON DIOXIDE 26.9 mmol/L (21-32); CHLORIDE 104 mmol/L (98-107); CREATINE KINASE 324 Units/L (39-308); CREATININE 1.14 mg/dL (0.70-1.30); SODIUM 139 mmol/L (136-145); TOTAL PROTEIN 7.2 g/dL (6.4-8.2); TROPONIN I < 0.02 ng/mL (0-1.5); eGFR NON BLACK RACES > 60 (>60)
--- NOTE | 2021-07-26 14:33 | CT ---
HISTORYFALL INJURYSTUDYBRAIN W/O CONCOMPARISONMRI of the brain from 06/10/2019.TECHNIQUEMultiple axial images of the head were performed from the skullbase to the vertex using standard departmental protocol. Sagittal and coronal reformatted images were performed. Dose reduction techniques including Automated Exposure Control (AEC) and adjustment of mA and kV were utilized.FINDINGSPatient is mildly tilted within the scanner. The lateral ventricles and basilar cisterns are patent.No parenchymal mass or hematoma. Lieberman-white differentiation appears acutely preserved. Mild low attenuation change in the subcortical and deep supratentorial white matter.No extra-axial collection.The globes are intact.The paranasal sinuses and mastoid air cells are clear.The calvarium is intact.IMPRESSIONNo acute intracranial abnormality. Mild chronic small vessel disease.Electronically signed by: Vadim Gary (Jul 26, 2021 14:31:55)
--- NOTE | 2021-07-26 14:38 | CT ---
HISTORYFALL INJURYSTUDYCERVICAL SPINE W/O CONCOMPARISONCT cervical spine from 09/04/2017.TECHNIQUEMultiple axial images of the cervical spine were obtained from the skull base to the thoracic inlet without administration of IV contrast. Sagittal and coronal reformats were performed and reviewed. Dose reduction techniques including Automated Exposure Control (AEC) and adjustment of mA and kV were utilized.FINDINGSThere is mild rightward curvature of the cervical spine apex C7. Grade 1 anterolisthesis of C3-4, C4-5, and C7-T1 is likely degenerative. Severe degenerative disc disease from C5-6 through C7-T1. Moderate degenerative disc disease at other cervical levels. The right C2-3 facets are fused. Severe facet arthropathy worst at right C3-4 and left C4-5. no fracture or aggressive osseous lesion. Bony encroachment worst at the left C4-5, left C6-7, right C3-4, and right C6-7 neural foramina. Lung apices demonstrate severe emphysema. No prevertebral soft tissue swelling.IMPRESSIONNo acute fracture. Severe cervical spondylosis with multilevel degenerative listhesis.Electronically signed by: Vadim Gary (Jul 26, 2021 14:36:27)
--- NOTE | 2021-07-26 14:41 | CT ---
HISTORYfall injury, back painSTUDYTHORACIC SPINE W/O CONCOMPARISONNoneTECHNIQUEAxial images through the thoracic spine were performed without contrast. CT scan was performed following ALARA (As low as Reasonably Achievable).Coronal and Sagittal reformatted images were performed.FINDINGSThere is preservation of the thoracic kyphosis. There is no evidence of acute compression fractures. No central spinal canal stenosis. There is a central posterior disc osteophyte at T7-T8 with calcification without evidence of significant spinal canal stenosis. The included lungs demonstrate severe emphysema, no dominant masses. There are some patchy right lower lobe radiopacities. No hyperdensity in the spinal canal. There is bilateral calcifications in the pleural. No adrenal masses.No significant neural foraminal stenosis.IMPRESSIONNo acute fractures of the thoracic spine. Calcified disc osteophyte centrally at T7-T8 without significant spinal canal stenosis.Severe emphysema with pleural calcifications.Electronically signed by: Livier Ross (Jul 26, 2021 14:38:15)
--- NOTE | 2021-07-26 14:45 | RAD ---
HISTORYFALL INJURY PAIN TO LEFT SHOULDERSTUDYX-ray left shoulder three viewsCOMPARISONNoneFINDINGSProminent osteoarthritic changes are seen. No fracture or dislocation is seen.IMPRESSIONProminent arthritic changes without evidence of fracture.Electronically signed by: Bacilio Ruvalcaba (Jul 26, 2021 14:44:29)
--- NOTE | 2021-07-26 14:48 | CT ---
HISTORYLOW BACK PAINSTUDYLUMBAR SPINE W/O CONCOMPARISONNoneTECHNIQUEAxial images through the lumbar spine were performed without contrast.. CT scan was performed following ALARA (As low as Reasonably Achievable).Coronal and Sagittal reformatted images were performed.FINDINGSThere are 6 [id number] lumbar type vertebral bodies. Counting was performed from below. There is no evidence of acute compression fracture. There is 2 millimeter anterolisthesis of L5 on S1 with vacuum phenomenon, there is loss of disc height at L3-L4-, L4-L5 and L5-S1. the urinary bladder appears to be distended. 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 There is a mid aneurysm measuring 4 by 3.1 centimeterNo retroperitoneal massesThere is bilateral bridging osteophytes at the sacroiliac joint.Findings in the axial plane as follows:T11-T12 mild facet hypertrophy, no spinal canal or neural foraminal [id number] and L1-L2 demonstrate no significant spinal canal or neural foraminal stenosis with mild facet hypertrophyL2-L3 there is a broad-based disc bulging with left lateral extension, the neural foramina are patent, no spinal canal stenosisL3-L4 there is a broad-based disc osteophyte and bilateral moderate facet hypertrophy, there is moderate right and mild left neural foraminal stenosis, there is mild to moderate narrowing of the spinal canalL4-L5 there is severe facet hypertrophy. There is a broad-based disc osteophyte with a left lateral recess inferior component, there is moderate narrowing of the spinal canal, there are lateral disc osteophyte with mild to moderate bilateral neural foraminal stenosis.L5-S1 there is loss of disc height, there are lateral disc osteophytes with severe left neural foraminal stenosis, the right neural foramina is patent. There is asymmetric moderate narrowing of the spinal canal due to an enlarged left facet producing mass effect in the thecal sac.IMPRESSIONDegenerative disc disease more severe at L4-L5 with a broad-based disc osteophyte with a left lateral recess component and effacement of the left lateral recess correlation with left sciatic pain recommended and moderate narrowing of the spinal canalAsymmetric moderate narrowing of the spinal canal at L5-S1 due to an enlarged left facet producing mass effect in the thecal sac and probably in the left epidural nerve root with severe left neural foraminal stenosis due to a lateral disc osteophyte.Electronically signed by: Livier Ross (Jul 26, 2021 14:47:03)
--- NOTE | 2021-07-26 14:51 | RAD ---
HISTORYFALL INJURY, PAIN TO RIGHT ELBOWSTUDYX-ray right elbow three viewsCOMPARISONNoneFINDINGSArthritic calcifications are seen. Mild remodeling of the proximal radial head from chronic arthritis changes. No fracture or dislocation is seen. There may be joint effusion.IMPRESSIONModerate arthritic changes are seen. There may be joint effusion. A fracture is not seen. Consider follow-up x-rays if pain symptoms persist.Electronically signed by: Bacilio Ruvalcaba (Jul 26, 2021 14:49:27)
--- NOTE | 2021-07-26 15:08 | RAD ---
CHEST, 1 VIEWHISTORY: DYSPNEAStudy: AP view of the chest.Comparison:NoneFindings:Cardiomegaly. No focal consolidations, pleural effusions or pneumothorax. Osseous structures demonstrate no acute abnormality. Bilateral hyperexpansion and interstitial prominence.IMPRESSION:1. No acute cardiopulmonary process.2. Findings of COPD.Electronically signed by: LUCA MARIN (Jul 26, 2021 15:06:40)
[2021-07-26 15:31] LABS: BILIRUBIN,URINE NEGATIVE (NEGATIVE); BLOOD/HEMOGLOBIN,URINE NEGATIVE (NEGATIVE); GLUCOSE, URINE NEGATIVE (NEGATIVE); KETONES,URINE NEGATIVE (NEGATIVE); LEUKOCYTE ESTERASE ,URINE NEGATIVE (NEGATIVE); NITRITES,URINE NEGATIVE (NEGATIVE); PROTEIN,URINE 1+ (NEGATIVE); UROBILINOGEN,URINE NORMAL (NORMAL)
--- NOTE | 2021-07-26 15:39 | RAD ---
HISTORYPAIN TO RIGHT FOREARM WITH BRUISINGSTUDYFOREARM, RIGHT x-ray two viewsCOMPARISONNoneFINDINGSArthritic changes are seen in elbow. No fracture or dislocation is seen. No obvious soft tissue swelling is seen.IMPRESSIONNo fracture is seen.Electronically signed by: Bacilio Ruvalcaba (Jul 26, 2021 15:37:51)
[2021-07-26 15:59] LABS: APPEARANCE,URINE CLEAR (CLEAR); COLOR,URINE YELLOW (YELLOW)
[2021-07-26 16:00] LABS: BACTERIA,URINE NEGATIVE /HPF (NEGATIVE); RBC,URINE NONE SEEN /HPF (0-3); SQUAMOUS EPITHELIAL CELL,UR RARE /HPF (NEGATIVE)
[2021-07-26] MEDS ORDERED: ZOFRAN INJ 4 MG VIAL IVP PRN (17:21)
[2021-07-26] MEDS: NS 1000 ML 1,000 ML IV SCH (18:00)
[2021-07-26] MEDS ORDERED: DUONEB 0.5 MG/3 MG (3 mL) NEB PRN (18:30)
[2021-07-26] MEDS ORDERED: DUONEB 0.5 MG/3 MG (3 mL) NEB SCH (21:00)
[2021-07-26] MEDS: ZESTRIL TAB 10 MG PO SCH (21:14)
[2021-07-26] MEDS: MORPHINE SULFATE INJ 2 MG INJ IVP PRN (23:00)
[2021-07-27 06:23] LABS: BASOPHILS % (AUTO) 0.5 % (0.2-1.0); EOSINOPHILS # (AUTO) 0.2 x10^3/uL (0.0-0.2); EOSINOPHILS % (AUTO) 2.7 % (0.9-2.9); HEMATOCRIT 46.9 % (42.0-54.0); HEMOGLOBIN 15.3 g/dL (13.5-18.0); LYMPHOCYTES # (AUTO) 2.1 X10^3/uL (1.3-2.9); LYMPHOCYTES % (AUTO) 24.2 % (21.0-51.0); MEAN CORPUSCULAR HGB CONC 32.6 g/dL (33.0-35.0); MEAN CORPUSCULAR VOLUME 92.1 fL (80.0-100.0); MEAN PLATELET VOLUME 8.2 fL (7.4-11.0); MONOCYTES # (AUTO) 1.3 x10^3/uL (0.3-0.8); MONOCYTES % (AUTO) 15.3 % (0.0-13.0); NEUTROPHILS % (AUTO) 57.3 % (42.0-75.0); PLATELET COUNT 239 X10^3/uL (150.0-450.0); RED CELL DISTRIBUTION WIDTH 15.6 % (11.6-16.5); WHITE BLOOD COUNT 8.8 X10^3/uL (3.6-10.0)
[2021-07-27 06:50] LABS: ALANINE AMINOTRANSFERASE 16 Units/L (12-78); ALBUMIN 3.3 g/dL (3.4-5.0); ALKALINE PHOSPHATASE 39 Units/L (46-116); ASPARTATE AMINO TRANSFERASE 36 Units/L (15-37); BLOOD UREA NITROGEN 12 mg/dL (7-18); CALCIUM 8.3 mg/dL (8.5-10.1); CARBON DIOXIDE 24.7 mmol/L (21-32); CHLORIDE 105 mmol/L (98-107); COR CA(FOR HYPOALB) 8.9 mg/dL (8.5-10.1); CREATININE 0.92 mg/dL (0.70-1.30); SODIUM 140 mmol/L (136-145); TOTAL PROTEIN 6.7 g/dL (6.4-8.2); eGFR NON BLACK RACES > 60 (>60)
[2021-07-27] MEDS ORDERED: PATIENT'S HOME MEDICATION (Ranitidine Hcl 150 MG tablet) PO SCH (09:00)
[2021-07-27] MEDS: PEPCID TAB 40 MG PO SCH (09:06)
[2021-07-27] MEDS: ZESTRIL TAB 10 MG PO SCH ×2 (09:06→20:45)
[2021-07-27] MEDS: SENOKOT PO SCH (09:06)
[2021-07-27] MEDS: MORPHINE SULFATE INJ 2 MG INJ IVP PRN (09:16)
[2021-07-27] MEDS ORDERED: NORCO 10/325 TAB PO PRN (09:57)
[2021-07-27] MEDS ORDERED: VOLTAREN 1 % GEL MULTI DOSE TUBE TOP PRN (09:57)
[2021-07-27] MEDS ORDERED: LASIX PO PRN (09:57)
--- NOTE | 2021-07-27 10:48 | DR.H&P ---
H&P - History & Physical for Day of: H&P Date: 07/26/21 - Chief Complaint Chief Complaint: FALLS, NECK PAIN, HEADACHE, LEFT SHOULDER PAIN, AND LOWER BACK PAIN. - History of Present Illness History of Present Illness: IS A 86 YEAR OLD PATIENT OF OURS WHO PRESENTED TO THE ER VIA EMS. HE REPORTS THAT HE FELL WHILE AMBULATING WITH A WALKER LAST NIGHT. HE STRUCK THE BACK OF HIS HEAD. HE REPORTS LAYING IN THE FLOOR FROM MIDNIGHT UNTIL 8AM. HE COMPLAINS OF NECK PAIN, HEADACHE, LEFT SHOULDER PAIN, AND LOWER BACK PAIN. HE DENIES BLURRED VISION, NUMBNESS, TINGLING OR WEAKNESS IN EXTREMITIES. HIS PMH INCLUDES COPD, HTN, DYSLIPIDEMIA, CHRONIC LOW BACK PAIN. EXAMINATION REVEALED BRUISING TO THE RIGHT ARM. ON ARRIVAL, VITALS WERE 99.2-99-17-92%-170/93. LABS WERE OBTAINED. ABNORMAL LAB VALUES INCLUDE THE FOLLOWING: WBC 11.5, GLUCOSE 107, ALK PHOS 45, CREATINE KINASE 324. URINALYSIS WAS UNREMARKABLE. COVID, RSV, AND INFLUENZA WERE UNREMARKABLE. A BRAIN CT WAS OBTAINED AND REVEALED: No acute intracranial abnormality. Mild chronic small vessel disease. CERVICAL SPINE CT REVEALED: No acute fracture. Severe cervical spondylosis with multilevel degenerative listhesis. CHEST XRAY REVEALED: 1. No acute cardiopulmonary process. 2. Findings of COPD. RIGHT ELBOW XRAY REVEALED: Moderate arthritic changes are seen. There may be joint effusion. A fracture is not seen. Consider follow-up x-rays if pain symptoms persist. RIGHT FOREARM XRAY REVEALED: No fracture is seen. LUMBAR SPINE XRAY REVEALED: Degenerative disc disease more severe at L4-L5 with a broad-based disc osteophyte with a left lateral recess component and effacement of the left lateral recess correlation with left sciatic pain recommended and moderate narrowing of the spinal canal. Asymmetric moderate narrowing of the spinal canal at L5-S1 due to an enlarged left facet producing mass effect in the thecal sac and probably in the left epidural nerve root with severe left neural foraminal stenosis due to a lateral disc osteophyte. LEFT SHOULDER XRAY REVEALED: Prominent arthritic changes without evidence of fracture. T-SPINE CT WITHOUT CONTRAST REVEALED: No acute fractures of the thoracic spine. Calcified disc osteophyte centrally at T7-T8 without significant spinal canal stenosis. Severe emphysema with pleural calcifications. EKG REVEALED: SINUS RHYTHM WITH HR 95. PATIENT IS UNABLE TO SIT OR STAND WITHOUT MODERATE ASSISTANCE. IN THE ER, HE WAS GIVEN MORPHINE SULFATE 2MG IV X 2 DOSES, ZOFRAN 4MG IV X 2 DOSES. A LAN CATHETER WAS INSERTED. HE WAS ADMITTED TO THE HOSPITAL FOR FURTHER EVALUATION AND TREATMENT OF FREQUENT FALLS, DEHYDRATION, INTRACTABLE PAIN. HE WAS STARTED ON NORMAL SALINE AT 50 ML/HR, TORADOL 30MG IV Q8H, MORPHINE SULFATE 2MG IV Q4H PRN PAIN, ZOFRAN 4MG IV Q6H PRN NAUSEA, AND HIS HOME MEDICATIONS WERE RESUMED. OTHERWISE, WE PLAN TO FOLLOW UP WITH AM LABS AND CONTINUE TO MONITOR. TIME SPENT ON CLINICAL ASSESSMENT, REVIEWING LABS AND IMAGING, DECISION MAKING, AND DOCUMENTATION GREATER THAN 75 MINUTES. - Past Medical History Past Medical History: Hypertension, COPD - Past Surgical History Surgical History: Ortho Surgery - Family History Family Medical History: Hypertension - Social History Does patient currently use any type of tobacco product: No Have you used tobacco products in the last 12 months: No Type of Tobacco Use: None Does any household member use tobacco: No Alcohol Use: None - Medications Home Medications: No Known Drug Allergies Allergy (Verified 09/04/17 16:04) CONTINUE taking the following medications diclofenac sodium 1 ea TOPICAL PRN PRN 07/26/21 [History] furosemide [Lasix] 40 mg PO BID PRN 07/26/21 [History] gabapentin 300 mg PO TID 07/26/21 [History] meclizine 25 mg PO BID 07/26/21 [History] ondansetron HCl [Zofran] 8 mg PO PRN PRN 07/26/21 [History] ropinirole 0.5 mg PO BID 07/26/21 [History] rosuvastatin 5 mg PO HS 07/26/21 [History] - Review of Systems Constitutional: Weakness Eyes: No Symptoms Reported ENT: No Symptoms Reported Respiratory: No Symptoms Reported Cardiovascular: No Symptoms Reported Gastrointestinal: No Symptoms Reported Genitourinary: No Symptoms Reported Musculoskeletal: See HPI, Shoulder Pain, Back Pain, Neck Pain, Other (HEADACHE) Skin: Bruising Neurological: See HPI, Weakness - Physical Exam Vital Signs: Temperature 98.2 F Pulse Rate [Bilateral Radial] 83 Pulse Rate 89 Respiratory Rate 20 Blood Pressure [Left Arm] 138/82 Blood Pressure 144/59 O2 Sat by Pulse Oximetry 95 Oriented: Normal Eyes: Normal Ear: Normal Nose: Normal Throat: Normal Respiratory: Diminished Throughout Cardiovascular: Normal : Normal Auscultation: Bowel Sounds: Normal Palpation: Normal Tenderness: Normal Skin: Normal Musculoskeletal: Left, Shoulder, Arm, Back:Thoracic, Back:Lumbar, Tender Psychiatric: Normal Mood Description: Calm Affect: Normal Speech Pattern: Clear - Assessment/Plan (1) Dehydration Status: Acute Plan: ADMIT, NORMAL SALINE AT 50 ML/HR, TORADOL 30MG IV Q8H, MORPHINE SULFATE 2MG IV Q4H PRN PAIN, ZOFRAN 4MG IV Q6H PRN NAUSEA, AND HIS HOME MEDICATIONS WERE RESUMED. (2) Frequent falls Status: Acute (3) Generalized weakness Status: Acute (4) Chronic low back pain Qualifiers: Back pain laterality: unspecified Sciatica presence: unspecified whether sciatica present Qualified Code(s): M54.50 - Low back pain, unspecified; G89.29 - Other chronic pain Status: Acute - Allergies Allergies/Adverse Reactions: Allergies Allergy/AdvReac Type Severity Reaction Status Date / Time No Known Drug Allergies Allergy Verified 09/04/17 16:04
[2021-07-27] MEDS: PROTONIX INJ 40 MG VIAL IVP SCH ×2 (11:05→20:41)
[2021-07-27] MEDS: ANTIVERT TAB 25 MG PO SCH ×2 (11:05→20:43)
[2021-07-27] MEDS: REQUIP PO SCH ×2 (11:05→20:46)
[2021-07-27] MEDS: NEURONTIN CAP 300 MG PO SCH ×3 (11:06→21:00)
[2021-07-27] MEDS: TORADOL 30 MG VIAL IVP PRN ×2 (11:07→20:50)
[2021-07-27] MEDS: NS 1000 ML 1,000 ML IV SCH ×2 (14:00→22:02)
[2021-07-27] MEDS ORDERED: AMBIEN PO SCH (21:00)
[2021-07-27] MEDS ORDERED: CRESTOR TAB 10 MG PO SCH (21:00)
[2021-07-28] MEDS: MORPHINE SULFATE INJ 2 MG INJ IVP PRN (04:06)
[2021-07-28] MEDS: NEURONTIN CAP 300 MG PO SCH (05:01)
[2021-07-28 06:41] LABS: BASOPHILS % (AUTO) 0.5 % (0.2-1.0); EOSINOPHILS # (AUTO) 0.3 x10^3/uL (0.0-0.2); EOSINOPHILS % (AUTO) 3.6 % (0.9-2.9); HEMATOCRIT 44.8 % (42.0-54.0); HEMOGLOBIN 14.8 g/dL (13.5-18.0); LYMPHOCYTES # (AUTO) 1.8 X10^3/uL (1.3-2.9); LYMPHOCYTES % (AUTO) 21.1 % (21.0-51.0); MEAN CORPUSCULAR HEMOGLOBIN 30.3 pg (27.0-34.0); MEAN CORPUSCULAR HGB CONC 33.1 g/dL (33.0-35.0); MEAN CORPUSCULAR VOLUME 91.5 fL (80.0-100.0); MEAN PLATELET VOLUME 8.6 fL (7.4-11.0); MONOCYTES # (AUTO) 1.2 x10^3/uL (0.3-0.8); MONOCYTES % (AUTO) 14.8 % (0.0-13.0); PLATELET COUNT 229 X10^3/uL (150.0-450.0); RED BLOOD COUNT 4.89 X10^6/uL (4.7-6.0); RED CELL DISTRIBUTION WIDTH 15.5 % (11.6-16.5); WHITE BLOOD COUNT 8.4 X10^3/uL (3.6-10.0)
[2021-07-28 06:42] LABS: ALANINE AMINOTRANSFERASE 18 Units/L (12-78); ALKALINE PHOSPHATASE 36 Units/L (46-116); ASPARTATE AMINO TRANSFERASE 28 Units/L (15-37); BLOOD UREA NITROGEN 16 mg/dL (7-18); CARBON DIOXIDE 26.9 mmol/L (21-32); CHLORIDE 106 mmol/L (98-107); COR CA(FOR HYPOALB) 8.8 mg/dL (8.5-10.1); SODIUM 141 mmol/L (136-145); TOTAL PROTEIN 6.5 g/dL (6.4-8.2); eGFR NON BLACK RACES > 60 (>60)
[2021-07-28] MEDS: ANTIVERT TAB 25 MG PO SCH (09:36)
[2021-07-28] MEDS: PROTONIX INJ 40 MG VIAL IVP SCH (09:36)
[2021-07-28] MEDS: REQUIP PO SCH (09:36)
[2021-07-28] MEDS: ZESTRIL TAB 10 MG PO SCH (09:36)
[2021-07-28] MEDS: TORADOL 30 MG VIAL IVP PRN (09:36)
[2021-07-28] MEDS: PEPCID TAB 40 MG PO SCH (09:36)
[2021-07-28] MEDS: SENOKOT PO SCH (09:36)
[2021-07-28] MEDS ORDERED: MILK OF MAGNESIA PO SCH (11:00)
[2021-07-28 14:18] VITALS: BP 134/65
[2021-07-28] MEDS ORDERED: COLACE CAP 100 MG PO SCH (21:00)
== END 2021-07-28 14:23 | disposition home health service (06) ==
LOC: MED/SURG 12:50 → ER 12:50 → MED/SURG 17:39
PROVIDERS: ADMIT Internal Medicine; ATTEND Internal Medicine
DX: J44.9 Chronic obstructive pulmonary disease, unspecified; M54.2 Cervicalgia; R53.1 Weakness; R94.31 Abnormal electrocardiogram [ECG] [EKG]; E86.0 Dehydration; M54.50 Low back pain, unspecified; W18.39XA Other fall on same level, initial encounter; I10 Essential (primary) hypertension; M47.812 Spondylosis without myelopathy or radiculopathy, cervical region; M25.512 Pain in left shoulder; R26.89 Other abnormalities of gait and mobility; Z20.822 Contact with and (suspected) exposure to COVID-19; R51.9 Headache, unspecified; R29.6 Repeated falls; M25.521 Pain in right elbow

== ENCOUNTER 2022-05-05 17:54 | Observation (INO) ==
[2022-05-05 18:07] VITALS: BMI 26.0
[2022-05-05 18:26] LABS: ABG BASE EXCESS 7.3 mmol/L (-2.0-2.0)
[2022-05-05 18:28] LABS: ABG ALLEN TEST POS; ABG HCO3 32.6 mmol/L (22-26)
[2022-05-05] MEDS ORDERED: NITROSTAT SL PRN (18:33)
[2022-05-05] MEDS ORDERED: ASPIRIN PO ONE (18:33)
[2022-05-05] MEDS ORDERED: LOPRESSOR INJ 5 MG AMP IVP PRN (18:35)
[2022-05-05 18:50] LABS: HEMOGLOBIN 13.2 g/dL (13.5-18.0); MEAN PLATELET VOLUME 7.3 fL (7.4-11.0); WHITE BLOOD COUNT 8.1 X10^3/uL (3.6-10.0)
[2022-05-05 18:53] LABS: BASOPHILS % (AUTO) 0.4 % (0.2-1.0); EOSINOPHILS # (AUTO) 0.1 x10^3/uL (0.0-0.2); EOSINOPHILS % (AUTO) 1.2 % (0.9-2.9); HEMATOCRIT 40.5 % (42.0-54.0); LYMPHOCYTES # (AUTO) 1.3 X10^3/uL (1.3-2.9); LYMPHOCYTES % (AUTO) 16.2 % (21.0-51.0); MEAN CORPUSCULAR HGB CONC 32.6 g/dL (33.0-35.0); MEAN CORPUSCULAR VOLUME 89.1 fL (80.0-100.0); MONOCYTES # (AUTO) 0.6 x10^3/uL (0.3-0.8); NEUTROPHILS % (AUTO) 74.2 % (42.0-75.0); RED BLOOD COUNT 4.55 X10^6/uL (4.7-6.0)
[2022-05-05] MEDS ORDERED: ASPIRIN ONE (18:56)
[2022-05-05] MEDS ORDERED: LOPRESSOR INJ 5 MG AMP ONE (18:59)
--- NOTE | 2022-05-05 18:59 | RAD ---
HISTORYCHEST PAINSTUDYCHEST, 1 VIEWCOMPARISONMay 2021TECHNIQUEChest radiographic imaging, AP portable projection, 2 imagesFINDINGSNo cardiomegaly.No focal airspace disease.Mild bilateral increased interstitial markings; likely senescent changes.No pleural effusion.No pneumothorax.No acute osseous abnormality.IMPRESSIONNo imaging findings of acute cardiopulmonary disease.Electronically signed by: Shorty Lee (May 05, 2022 18:58:11)
[2022-05-05 19:05] LABS: ALANINE AMINOTRANSFERASE 18 Units/L (12-78); ALBUMIN 3.5 g/dL (3.4-5.0); ALKALINE PHOSPHATASE 63 Units/L (46-116); ASPARTATE AMINO TRANSFERASE 22 Units/L (15-37); BLOOD UREA NITROGEN 22 mg/dL (7-18); CARBON DIOXIDE 32.8 mmol/L (21-32); CHLORIDE 103 mmol/L (98-107); CREATINE KINASE 102 Units/L (39-308); CREATINE KINASE MB < 1.0 ng/mL (0-4.0); CREATININE 1.27 mg/dL (0.70-1.30); MAGNESIUM 2.2 mg/dL (1.7-2.9); SODIUM 143 mmol/L (136-145); TOTAL PROTEIN 7.7 g/dL (6.4-8.2); eGFR NON BLACK RACES 57 (>60)
--- NOTE | 2022-05-05 19:38 | DR.CP ---
HPI Time Seen Time Seen by Provider: 05/05/22 18:33 PCP Primary Care Physician: YONNY RESENDEZ HPI Comment HPI Comment: An 86 y/o male presenting with chest pain this morning. He thought the pain would go away but it hasn't. The pain is described as dull in nature and radiates to his Lt. neck. He has associated SOB. HE denies nausea or vomiting. Complaint Chief Complaint:: PT REPORTS THAT TODAY HE STARTED TO HAVE LEFT SIDE CHEST PAIN THAT IS DULL AND THAT IS RADIATES TO HIS LEFT NECK AND THE HE HAS BEEN HAVING SOB, PT HAS HX OF COPD AND HE WEARS OXYGEN AT NIGHT PRN , PT DENIES FEVER OR CCC ,BR COVID-19 Coronavirus risk:travel/contact w/high risk person: No Has patient experienced Coronavirus symptoms: No Reviewed Nurses Notes Review: Yes Source History Provided: Patient Mode of Arrival Mode of Arrival: Wheelchair Timing Onset of Chief Complaint: 05/05/22 Location Location of Chest Pain: Chest Chest Pain Radiation Location: Left Jaw Context Cardiac Risk Factors: HTN PE Risk Factors: None History of: None Quality Quality: Other (Dull) Associated Signs and Symptoms Associated Signs and Symptoms: Shortness of Breath PMH PMH Past Medical History: Yes Past Medical History: COPD and Hypertension Past Surgical History: Yes Surgical History: Ortho Surgery Family History History of Family Medical Conditions: Yes Family Medical History: Hypertension Social History Does patient currently use any type of tobacco product: No Have you used tobacco products in the last 12 months: No Type of Tobacco Use: None Does any household member use tobacco: No Alcohol Use: None Do you use any recreational Drugs:: No Lives With: Family Lives Where: Home Travel Risk Coronavirus risk:travel/contact w/high risk person: No Has patient experienced Coronavirus symptoms: No Infectious screening In the last 2 months have you had wt loss of >10#?: NO Have you had fever, night sweats or hemotysis?: No Have you traveled outside the country in the last 6 months?: No Isolation: Standard ROS Review of Systems Constitutional: No Symptoms Reported Eyes: No Symptoms Reported ENTM: No Symptoms Reported Respiratoy: Short of Breath Cardiovascular: Chest Pain Gastrointestinal/Abdominal: No Symptoms Reported Genitourinary: No Symptoms Reported Neurological: No Symptoms Reported Musculoskeletal: No Symptoms Reported Integumentary: No Symptoms Reported Hematologic/Lymphatic: No Symptoms Reported Endocrine: No Symptoms Reported Psychiatric: No Symptoms Reported PE Vitals Vitals: Temperature 97.3 F Pulse Rate 91 Respiratory Rate 20 Blood Pressure [Left Arm] 124/78 Blood Pressure 111/69 O2 Sat by Pulse Oximetry 94 General Limitations: No Limitations General Appearance: Alert, In No Apparent Distress and Appears Intoxicated Head Head Exam: Normal Inspection, Atraumatic and Normocephalic Eyes Eye exam: Normal Appearance and EOMI ENT ENT Exam: Normal Exam, Normal Oropharynx, Normal External Ear Exam and Mucous Membranes Moist Chest Chest Inspection: Normal Inspection and Symmetric Chest Wall Rise Cardiovascular Cardiovascular Exam: Irregular Rhythm, Normal Heart Sounds, +S1 and +S2 Abdominal Exam Abdominal Exam: Normal Inspection, Normal Bowel Sounds and Soft Extremities Extremities Exam: Normal Inspection and Full ROM Back Back Exam: Normal Inspection and Full ROM Neurologic Neurological Exam: Alert and Oriented X3 Psychiatric Psychiatric Exam: Normal Affect and Normal Mood COURSE Treatment Treatment: Test results were discussed with the pt. and his son. I also discussed presentation and findings with on-call provider ( Dr. Escobar) who agreed to placing him in house for work-up.. Education/Counseling Education/Counseling: Patient, Family, Education and Counseling Educated On: Treatment, Diagnosis, Prognosis and Needs for Follow Up ROR Labs Reviewed Result Diagrams: 05/05/22 18:24 05/05/22 18:24 Laboratory: WBC 8.1 X10^3/uL (3.6-10.0) 05/05/22 18:24 RBC 4.55 X10^6/uL (4.7-6.0) L 05/05/22 18:24 Hgb 13.2 g/dL (13.5-18.0) L 05/05/22 18:24 Hct 40.5 % (42.0-54.0) L 05/05/22 18:24 MCV 89.1 fL (80.0-100.0) 05/05/22 18:24 MCH 29.0 pg (27.0-34.0) 05/05/22 18:24 MCHC 32.6 g/dL (33.0-35.0) L 05/05/22 18:24 RDW 17.0 % (11.6-16.5) H 05/05/22 18:24 Plt Count 322 X10^3/uL (150.0-450.0) 05/05/22 18:24 MPV 7.3 fL (7.4-11.0) L 05/05/22 18: Neut % (Auto) 74.2 % (42.0-75.0) 05/05/22: Lymph % (Auto) 16.2 % (21.0-51.0) L 05/05/22 18: [place] % (Auto) 8.0 % (0.0-13.0) 05/05/22: Eos % (Auto) 1.2 % (0.9-2.9) 05/05/22: Baso % (Auto) 0.4 % (0.2-1.0) 05/05/22 Neut # (Auto) 6.0 x10^3/uL (2.2-4.8) H 05/05/22: Lymph # (Auto) 1.3 X10^3/uL (1.3-2.9) 05/05/22: [place] # (Auto) 0.6 x10^3/uL (0.3-0.8) 05/05/22: Eos # (Auto) 0.1 x10^3/uL (0.0-0.2) 05/05/22: Baso # (Auto) 0.0 X10^3/uL (0.0-0.1) 05/05/22: Absolute Nucleated RBC 0.1 /100WBC 05/05/22: PT 15.1 SECONDS (11.8-14.3) 05/05/22 INR Target Range - 05/05/22: INR 1.23 (0.8-1.3) 05/05/22: APTT 25.7 SECONDS (22.9-36.5) 05/05/22: PTT Comment - 05/05/22 Sample Site Rra 05/05/22: ABG pH 7.440 (7.35-7.45) 05/05/22: ABG pCO2 48.0 mmHg (35.0-45.0) H 05/05/22 18: ABG pO2 43.0 mmHg (80.0-100.0) L* 05/05/22 18:22 ABG HCO3 32.6 mmol/L (22-26) H* 05/05/22 18:22 ABG O2 Saturation 81.0 % (90-100) L* 05/05/22 18:22 ABG Base Excess 7.3 mmol/L (-2.0-2.0) H 05/05/22 18:22 Anatoly Test Pos 05/05/22 18:22 A-a Gradient 47.0 mmHg 05/05/22 18:22 FiO2 21.0 05/05/22 18:22 Blood Gas Comments Pt nando well eb,meat dresser 05/05/22 18:22 Sodium 143 mmol/L (136-145) 05/05/22 18:24 Corrected Sodium TNP 05/05/22 18:24 Potassium 4.1 mmol/L (3.5-5.1) 05/05/22 18:24 Chloride 103 mmol/L (98-107) 05/05/22 18:24 Carbon Dioxide 32.8 mmol/L (21-32) H 05/05/22 18:24 BUN 22 mg/dL (7-18) H 05/05/22 18:24 Creatinine 1.27 mg/dL (0.70-1.30) 05/05/22 18:24 Est GFR (MDRD) Af Amer > 60 (>60) 05/05/22 18:24 Est GFR (MDRD) Non-Af 57 (>60) L 05/05/22 18:24 Glucose 103 mg/dL (65-99) H 05/05/22 18:24 Calcium 9.0 mg/dL (8.5-10.1) 05/05/22 18:24 Corrected Calcium TNP 05/05/22 18:24 Magnesium 2.2 mg/dL (1.7-2.9) 05/05/22 18:24 Total Bilirubin 0.70 mg/dL (0.2-1.0) 05/05/22 18:24 AST 22 Units/L (15-37) 05/05/22 18:24 ALT 18 Units/L (12-78) 05/05/22 18:24 Alkaline Phosphatase 63 Units/L (46-116) 05/05/22 18:24 Creatine Kinase 102 Units/L (39-308) 05/05/22 18:24 CK-MB (CK-2) < 1.0 ng/mL (0-4.0) 05/05/22 18:24 CK/CKMB % Calc 1.0 % (<4) 05/05/22 18:24 Troponin I High Sens 16.4 ng/L (4.0-60.0) 05/05/22 18:24 Total Protein 7.7 g/dL (6.4-8.2) 05/05/22 18:24 Albumin 3.5 g/dL (3.4-5.0) 05/05/22 18:24 Globulin 4.2 g/dL (2.5-4.5) 05/05/22 18:24 Albumin/Globulin Ratio 0.8 Ratio (1.1-2.1) L 05/05/22 18:24 SARS-CoV-2 (PCR) Positive (NEGATIVE) A 05/05/22 19:45 EKG Rate: 114 Wiley: Normal Rhythm: Afib Block: None Hypertrophy: None ST: Normal Opioid Opioid Risk Tool Age (Osorio box if 16-45): No History of Preadolescent Sexual Abuse: No Total: 0 Total Score Risk Category: Low Risk Copyright: [facility] predicting aberrant behaviors Discharge Plan Diagnosis Discharge Problem: New onset a-fib, COVID-19, Benign essential HTN Discharge Plan Patient Disposition: 09 ADMITTED INPATIENT Condition: Stable Prescriptions: No Action diclofenac sodium 1 % gel 1 ea TOPICAL PRN PRN furosemide 40 mg tablet 1 tab PO BID ropinirole 1 mg tablet 2 tab PO BID hydrocodone-acetaminophen 10-325 mg tablet PO meclizine 25 mg tablet 1 tab PO BID PRN pantoprazole 40 mg tablet,delayed release (DR/EC) 1 tab PO QDAY lisinopril 10 mg tablet 1 tab PO BID gabapentin 300 mg capsule 1 cap PO TID zolpidem 10 mg tablet 1 tab PO QPM PRN rosuvastatin 5 mg tablet 1 tab PO QDAY Health Concerns: Post Hospitalization: new medications and changes needed to prevent readmission or further decline. Pt educated and given instructions on all concerns. Plan of Treatment: Continue with present treatment and follow up plan. Pt is to keep follow up appointment as instructed and take medications as ordered. Orders to Discharge Patient Discharge Orders: Transfer (Routine); Ordered 05/05/22 Ordered By: DUKE PAINTER Follow ups/Referrals Follow ups/Referrals: Jairo Blancas [Primary Care Provider] - 3 days ADDITIONAL NOTES Additional Notes Additional Notes: Name: YUMIKO BLANCAS#: [id number]: [id number]: [id number]: M Location: EROrder Number(s): [id number](s):CHEST, 1 VIEW Ordering Physician: DUKE PAINTER Primary Care: Jairo Blancas Service Date: 05/05/22 Service Time: 1833 HISTORY CHEST PAIN STUDY CHEST, 1 VIEW COMPARISON March 24, 2022 TECHNIQUE Chest radiographic imaging, AP portable projection, 2 images FINDINGS No cardiomegaly. No focal airspace disease. Mild bilateral increased interstitial markings; likely senescent changes. No pleural effusion. No pneumothorax. No acute osseous abnormality. IMPRESSION No imaging findings of acute cardiopulmonary disease. Electronically signed by: Shorty Lee (May 05, 2022 18:58:11) Report Electronically signed: 05/05/22 [id number] CC: Duke Painter
[2022-05-05] MEDS ORDERED: CARDIZEM TAB 30 MG PLAIN PO ONE (21:03)
[2022-05-05] MEDS ORDERED: ELIQUIS ONE (21:54)
[2022-05-05] MEDS: ELIQUIS PO SCH (21:58)
[2022-05-05] MEDS ORDERED: VOLTAREN 1 % GEL MULTI DOSE TUBE TOP PRN (22:52)
[2022-05-05] MEDS ORDERED: AMBIEN PO PRN (22:52)
[2022-05-05] MEDS ORDERED: NEURONTIN CAP 300 MG ONE (22:56)
[2022-05-05] MEDS ORDERED: CARDIZEM TAB 30 MG PLAIN ONE (22:56)
[2022-05-05] MEDS: NEURONTIN CAP 300 MG PO SCH (23:19)
[2022-05-05] MEDS: CRESTOR TAB 10 MG PO SCH (23:25)
[2022-05-05] MEDS: PROTONIX TAB 40 MG PO SCH (23:25)
[2022-05-06] MEDS ORDERED: REQUIP PO ONE (00:32)
[2022-05-06] MEDS: REQUIP PO SCH ×3 (00:39→20:59)
[2022-05-06] MEDS: NORCO 5/325 MG TAB PO PRN ×2 (01:00→22:11)
[2022-05-06 01:20] LABS: CKMB % 1.3 % (<4); CREATINE KINASE 75 Units/L (39-308); CREATINE KINASE MB < 1.0 ng/mL (0-4.0)
[2022-05-06 01:27] LABS: BILIRUBIN,URINE NEGATIVE (NEGATIVE); BLOOD/HEMOGLOBIN,URINE 3+ (NEGATIVE); GLUCOSE, URINE NEGATIVE (NEGATIVE); KETONES,URINE 1+ (NEGATIVE); LEUKOCYTE ESTERASE ,URINE 1+ (NEGATIVE); NITRITES,URINE NEGATIVE (NEGATIVE); PROTEIN,URINE 2+ (NEGATIVE); UROBILINOGEN,URINE NORMAL (NORMAL)
[2022-05-06 01:28] LABS: APPEARANCE,URINE CLEAR (CLEAR); COLOR,URINE DARK YELLOW (YELLOW)
[2022-05-06 01:36] LABS: BACTERIA,URINE TRACE /HPF (NEGATIVE); HYALINE CASTS, URINE FEW /LPF (NEGATIVE); SQUAMOUS EPITHELIAL CELL,UR NEGATIVE /HPF (NEGATIVE)
[2022-05-06] MEDS: NEURONTIN CAP 300 MG PO SCH ×3 (05:35→21:01)
[2022-05-06 05:41] LABS: BASOPHILS % (AUTO) 0.3 % (0.2-1.0); EOSINOPHILS % (AUTO) 0.3 % (0.9-2.9); HEMATOCRIT 34.2 % (42.0-54.0); HEMOGLOBIN 11.3 g/dL (13.5-18.0); LYMPHOCYTES % (AUTO) 15.5 % (21.0-51.0); MEAN CORPUSCULAR HEMOGLOBIN 29.1 pg (27.0-34.0); MEAN CORPUSCULAR HGB CONC 32.9 g/dL (33.0-35.0); MEAN CORPUSCULAR VOLUME 88.3 fL (80.0-100.0); MEAN PLATELET VOLUME 7.2 fL (7.4-11.0); MONOCYTES # (AUTO) 0.8 x10^3/uL (0.3-0.8); MONOCYTES % (AUTO) 11.6 % (0.0-13.0); NEUTROPHILS # (AUTO) 4.8 x10^3/uL (2.2-4.8); NEUTROPHILS % (AUTO) 72.3 % (42.0-75.0); RED BLOOD COUNT 3.87 X10^6/uL (4.7-6.0); RED CELL DISTRIBUTION WIDTH 17.3 % (11.6-16.5); WHITE BLOOD COUNT 6.6 X10^3/uL (3.6-10.0)
[2022-05-06 05:48] LABS: ALANINE AMINOTRANSFERASE 15 Units/L (12-78); ALBUMIN 2.7 g/dL (3.4-5.0); ALKALINE PHOSPHATASE 48 Units/L (46-116); ASPARTATE AMINO TRANSFERASE 15 Units/L (15-37); BLOOD UREA NITROGEN 20 mg/dL (7-18); CALCIUM 8.1 mg/dL (8.5-10.1); CARBON DIOXIDE 30.2 mmol/L (21-32); CHLORIDE 105 mmol/L (98-107); COR CA(FOR HYPOALB) 9.1 mg/dL (8.5-10.1); COR NA(FOR HYPERGLY) 141 mmol/L (136-145); CREATININE 0.96 mg/dL (0.70-1.30); SODIUM 141 mmol/L (136-145); TOTAL PROTEIN 6.1 g/dL (6.4-8.2); eGFR NON BLACK RACES > 60 (>60)
[2022-05-06 06:08] LABS: ABG BASE EXCESS 8.2 mmol/L (-2.0-2.0)
[2022-05-06 06:09] LABS: ABG ALLEN TEST POS; ABG HCO3 33.4 mmol/L (22-26)
[2022-05-06] MEDS ORDERED: CARDIZEM TAB 30 MG PLAIN PO SCH (06:30)
--- NOTE | 2022-05-06 06:44 | RAD ---
HISTORYSOB chest painSTUDYPortable AP [id number]/10/2022FINDINGSThere is no change in appearance of heart or lungs. No evidence for developing airspace disease, atelectasis, pleural fluid or CHF.IMPRESSIONNo change, no acute chest findings.Electronically signed by: ADALID GARVEY (May 06, 2022 06:43:09)
[2022-05-06] MEDS: LASIX PO SCH ×2 (10:01→21:00)
[2022-05-06] MEDS: ZESTRIL TAB 10 MG PO SCH (10:02)
--- NOTE | 2022-05-06 10:12 | DR.H&P ---
H&P - History & Physical for Day of: H&P Date: 05/05/22 - Chief Complaint Chief Complaint: CHEST PAIN - History of Present Illness History of Present Illness: IS A 86 YEAR OLD PATIENT OF OURS. HE PRESENTED TO THE ER WITH COMPLAINTS OF LEFT SIDED CHEST PAIN. PAIN IS DESCRIBED DULL AND INTERMITTENT. IT RADIATES TO THE LEFT SIDE NECK. HE RATED PAIN A 4/10 ON ARRIVAL. HE ALSO COMPLAINS OF SHORTNESS OF BREATH AT TIMES. HE HAS A HX OF COPD AND WEARS OXYGEN AT BEDTIME. HE DENIES FEVER, COUGH, CONGESTION, NAUSEA, OR VOMITING. HIS PMH INCLUDES COPD AND HTN. ON ARRIVAL TO THE ER, HIS VITALS WERE 97.3-120-22-77%-136/103. HE WAS PLACED ON NASAL CANNULA AT 3 LPM. SATURATIONS INCREASED TO 92%. LABS WERE OBTAINED. WBC 8.1, RBC 4.55, HGB 13.2, HCT 40.5, D-DIMER 2.28, SODIUM 143, POTASSIUM 4.1, CHLORIDE 103, BUN 22, CREATININE 1.27, GLUCOSE 103, CALCIUM 9.0, MAGNESIUM 2.2, AST 22, ALT 18, ALK PHOS 63, TOTAL PROTEIN 7.7, ALBUMIN 3.5, GLOBULIN 4.2. CARDIAC ENZYMES WERE WITHIN NORMAL LIMITS. URINALYSIS REVEALED: WBC 0-2, RBC 10-20, LEUKOCYTES 1+, BACTERIA TRACE. COVID-19 WAS POSITIVE. A CHEST XRAY WAS OBTAINED AND REVEALED: No imaging findings of acute cardiopulmonary disease. EKG REVEALED: ATRIAL FIBRILLATION WITH HR 114. IN THE ER, HE WAS GIVEN ASPIRIN 325M,G PO X 1, CARDIZEM 30MG PO X 1. HIS HEARTRATE DECREASED TO 100-110 BPM. HE WAS ADMITTED TO THE INTENSIVE CARE UNIT ON THE BANK TELLER OBSERVATION STATUS FOR FURTHER EVALUATION AND TREATMENT OF NEW ONSET A-FIB WITH RVR, COVID-19, CHEST PAIN RULE OUT ACUTE [place]. HE WAS STARTED ON CARDIZEM CD 30MG PO ACHS, NITROSTAT 0.4MG SL Q5M PRN, ELIQUIS 5MG PO BID, ECOTRIN 81MG PO DAILY, AND HIS HOME MEDICATIONS OF LASIX, NEURONTIN, NORCO, ZESTRIL, PROTONIX, REQUIP, CRESTOR, AND AMBIEN WERE RESUMED. WE WILL OBTAIN A CHEST CTA TO RULE OUT PE. OTHERWISE, WE PLAN TO FOLLOW-UP WITH AM LABS AND CONTINUE TO MONITOR. TIME SPENT ON CLINICAL ASSESSMENT, REVIWING LABS AND IMAGING, DECISION MAKING, AND DOCUMENTATION GREATER THAN 75 MINUTES. - Past Medical History Past Medical History: Hypertension, COPD - Past Surgical History Surgical History: Ortho Surgery - Family History Family Medical History: Hypertension - Social History Does patient currently use any type of tobacco product: No Have you used tobacco products in the last 12 months: No Type of Tobacco Use: None Does any household member use tobacco: No Alcohol Use: None Drug Use: None - Medications Home Medications: No Known Drug Allergies Allergy (Verified 09/04/17 16:04) CONTINUE taking the following medications furosemide 40 mg tablet 1 tab PO BID 05/05/22 [History] gabapentin 300 mg capsule 1 cap PO TID 05/05/22 [History] hydrocodone 10 mg-acetaminophen 325 mg tablet tab PO 05/05/22 [History] lisinopril 10 mg tablet 1 tab PO BID 05/05/22 [History] meclizine 25 mg tablet 1 tab PO BID PRN 05/05/22 [History] pantoprazole 40 mg tablet,delayed release 1 tab PO QDAY 05/05/22 [History] ropinirole 1 mg tablet 2 tab PO BID 05/05/22 [History] rosuvastatin 5 mg tablet 1 tab PO QDAY 05/05/22 [History] zolpidem 10 mg tablet 1 tab PO QPM PRN 05/05/22 [History] - Review of Systems Constitutional: Weakness Eyes: No Symptoms Reported ENT: No Symptoms Reported Respiratory: Shortness of Breath, SOB with Excertion Cardiovascular: Chest Pain Gastrointestinal: No Symptoms Reported Genitourinary: No Symptoms Reported Musculoskeletal: No Symptoms Reported Skin: No Symptoms Reported Neurological: Weakness - Physical Exam Vital Signs: Temperature 99.2 F Pulse Rate 86 Respiratory Rate 22 Blood Pressure [Left Arm] 124/78 Blood Pressure 107/70 O2 Sat by Pulse Oximetry 94 Oriented: Normal Eyes: Normal Ear: Normal Nose: Normal Throat: Normal Respiratory: Diminished Throughout Cardiovascular: Tachycardia, Irregular : Normal Auscultation: Bowel Sounds: Normal Palpation: Normal Tenderness: Normal Skin: Normal Musculoskeletal: Normal Psychiatric: Normal Mood Description: Calm Affect: Normal Speech Pattern: Clear - Assessment/Plan (1) New onset a-fib Status: Acute Plan: ADMIT, BANK TELLER, CARDIZEM CD 30MG PO ACHS, NITROSTAT 0.4MG SL Q5M PRN, ELIQUIS 5MG PO BID, ECOTRIN 81MG PO DAILY, AND HIS HOME MEDICATIONS OF LASIX, NEURONTIN, NORCO, ZESTRIL, PROTONIX, REQUIP, CRESTOR, AND AMBIEN WERE RESUMED. (2) COVID-19 Status: Acute (3) Chest pain Qualifiers: Chest pain type: unspecified Qualified Code(s): R07.9 - Chest pain, unspecified Status: Acute - Allergies Allergies/Adverse Reactions: Allergies Allergy/AdvReac Type Severity Reaction Status Date / Time No Known Drug Allergies Allergy Verified 09/04/17 16:04
[2022-05-06] MEDS: CRESTOR TAB 10 MG PO SCH (10:32)
[2022-05-06] MEDS: PAXLOVID CO-PACK (EUA) PO SCH ×2 (10:39→21:00)
[2022-05-06] MEDS: PROTONIX TAB 40 MG PO SCH (10:40)
[2022-05-06] MEDS: ASPIRIN EC 81 MG PO SCH (10:40)
[2022-05-06] MEDS: ELIQUIS PO SCH ×2 (10:41→20:58)
[2022-05-06] MEDS: SOLU-Medrol 40 MG VIAL IVP SCH ×3 (10:41→21:01)
[2022-05-06] MEDS ORDERED: FLOMAX PO SCH ×2 (11:00→21:00)
--- NOTE | 2022-05-06 11:08 | CT ---
HISTORYCOVID, elevated D-dimerSTUDYCTA chest with contrast for pulmonary embolusTechnique: Axial post-contrast images with coronal and sagittal reformats. Three dimensional maximum intensity projection images were obtained and evaluated. Dose reduction procedures were used with mA/kv adjusted for body size.COMPARISONNoneFINDINGSThere is no evidence for acute pulmonary thromboembolic disease. There is a large ascending thoracic aortic aneurysm measuring approximately 6 cm x 7 cm. Evaluation for dissection is limited as this examination was timed to evaluate the bony arterial circulation. There does appear to be a large amount of thrombus along the lateral wall of the ascending aorta. This could be chronic however an acute intramural hematoma secondary to a nonvisualized dissection is certainly possible. CTA timed for evaluation of the thoracic aorta is recommended and pending that result vascular surgery evaluation. If the patient is unable to have the examination at this time, immediate vascular surgery evaluation is then recommended. No mediastinal masses, abnormal mediastinal or abnormal hilar lymphadenopathy is identified. 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 Small left pleural effusion is present. Those portions of the upper abdominal organs visualized are within normal limits to the limitations of early arterial injection timing with the exception of reflux of contrast into the inferior vena cava and hepatic veins which may indicate right heart dysfunction. Examination of the lung eric demonstrated hyperinflation to be present. Diffuse changes of centrilobular emphysema are present. Diffuse interstitial lung changes most prominent in the lung bases are likely chronic. There is diffuse peribronchial thickening consistent with bronchitis which could be acute, chronic, or both. No alveolar infiltrates or areas of consolidation are identified.IMPRESSIONNo evidence for acute pulmonary thromboembolic diseaseAscending thoracic aortic aneurysm as described above measuring approximately 6 cm x 7 cm in diameter and with what appears to be a large amount of thrombus in the lateral wall which could be chronic or could represent an acute intramural hematoma due to a nonvisualized dissection. This examination was timed as requested for the evaluation of the pulmonary arterial circulation. CTA timed for the evaluation of the thoracic aorta and its branches is recommended for further evaluation and pending that result immediate vascular surgery evaluation. If the patient is unable have that examination at this time, immediate vascular surgery evaluation is recommended.Reflux of contrast into the inferior vena cava and hepatic veins suggestive of right heart dysfunctionEmphysematous COPD with chronic interstitial lung diseaseDiffuse peribronchial thickening consistent with bronchitis which could be acute, chronic, or both.Electronically signed by: KOREY NICOLE (May 06, 2022 11:06:57)
[2022-05-06] MEDS: CARDIZEM CD 120 MG 24-HR PO SCH (13:34)
[2022-05-06 21:03] LABS: BILIRUBIN,URINE NEGATIVE (NEGATIVE); BLOOD/HEMOGLOBIN,URINE 5+ (NEGATIVE); GLUCOSE, URINE NEGATIVE (NEGATIVE); KETONES,URINE NEGATIVE (NEGATIVE); LEUKOCYTE ESTERASE ,URINE NEGATIVE (NEGATIVE); NITRITES,URINE NEGATIVE (NEGATIVE); PROTEIN,URINE 2+ (NEGATIVE); UROBILINOGEN,URINE 1+ (NORMAL)
[2022-05-06 21:18] LABS: APPEARANCE,URINE CLEAR (CLEAR); COLOR,URINE YELLOW (YELLOW)
[2022-05-06 21:19] LABS: BACTERIA,URINE TRACE /HPF (NEGATIVE); RBC,URINE 30-50 /HPF (0-3); SQUAMOUS EPITHELIAL CELL,UR RARE /HPF (NEGATIVE)
[2022-05-07] MEDS: NORCO 5/325 MG TAB PO PRN ×3 (04:09→23:25)
[2022-05-07] MEDS: NEURONTIN CAP 300 MG PO SCH ×3 (05:04→21:02)
[2022-05-07] MEDS: COLACE CAP 100 MG PO PRN ×2 (05:05→20:15)
[2022-05-07] MEDS: SOLU-Medrol 40 MG VIAL IVP SCH ×3 (05:06→21:03)
[2022-05-07 05:16] LABS: BASOPHILS % (AUTO) 0.1 % (0.2-1.0); HEMATOCRIT 35.9 % (42.0-54.0); HEMOGLOBIN 11.9 g/dL (13.5-18.0); LYMPHOCYTES # (AUTO) 0.6 X10^3/uL (1.3-2.9); LYMPHOCYTES % (AUTO) 13.9 % (21.0-51.0); MEAN CORPUSCULAR HEMOGLOBIN 29.1 pg (27.0-34.0); MEAN CORPUSCULAR HGB CONC 33.2 g/dL (33.0-35.0); MEAN CORPUSCULAR VOLUME 87.8 fL (80.0-100.0); MEAN PLATELET VOLUME 7.3 fL (7.4-11.0); MONOCYTES # (AUTO) 0.2 x10^3/uL (0.3-0.8); MONOCYTES % (AUTO) 3.9 % (0.0-13.0); NEUTROPHILS # (AUTO) 3.4 x10^3/uL (2.2-4.8); NEUTROPHILS % (AUTO) 82.1 % (42.0-75.0); RED BLOOD COUNT 4.09 X10^6/uL (4.7-6.0); RED CELL DISTRIBUTION WIDTH 17.1 % (11.6-16.5); WHITE BLOOD COUNT 4.1 X10^3/uL (3.6-10.0)
[2022-05-07 05:33] LABS: ALANINE AMINOTRANSFERASE 11 Units/L (12-78); ALBUMIN 2.8 g/dL (3.4-5.0); ALKALINE PHOSPHATASE 50 Units/L (46-116); ASPARTATE AMINO TRANSFERASE 13 Units/L (15-37); BLOOD UREA NITROGEN 18 mg/dL (7-18); CALCIUM 8.4 mg/dL (8.5-10.1); CARBON DIOXIDE 29.1 mmol/L (21-32); CHLORIDE 103 mmol/L (98-107); COR CA(FOR HYPOALB) 9.4 mg/dL (8.5-10.1); COR NA(FOR HYPERGLY) 139 mmol/L (136-145); CREATININE 0.86 mg/dL (0.70-1.30); SODIUM 137 mmol/L (136-145); TOTAL PROTEIN 6.7 g/dL (6.4-8.2); eGFR NON BLACK RACES > 60 (>60)
--- NOTE | 2022-05-07 06:08 | RAD ---
HISTORYShortness of breath, atrial fibrillationSTUDYChest AP [id number]/11/2022 chest x-ray and CTA chestFINDINGSPatient is rotated to the left. Heart is upper limits normal in size. Ledy are normal. The aorta is calcified. The ascending aortic aneurysm visible on the recent CTA chest is not visible on the plain film most likely due to leftward rotation. The ledy are normal. Lungs are hyperinflated but free of acute alveolar infiltrates. No definite pleural effusions are identified. Bony thorax is unremarkable.IMPRESSIONLungs hyperinflated but free of acute infiltrates. Consistent with COPD in the appropriate clinical settingThe patient's known ascending aortic aneurysm is not well demonstrated on this plain film most likely due to leftward rotation which projects the ascending aorta over the spine.Electronically signed by: KOREY NICOLE (May 07, 2022 06:07:43)
[2022-05-07] MEDS ORDERED: NS 100 ML IV 100 ML ONE (08:44)
[2022-05-07] MEDS: PAXLOVID CO-PACK (EUA) PO SCH ×2 (08:56→20:18)
[2022-05-07] MEDS: ELIQUIS PO SCH (08:56)
[2022-05-07] MEDS: PROTONIX TAB 40 MG PO SCH (08:56)
[2022-05-07] MEDS: ASPIRIN EC 81 MG PO SCH (08:56)
[2022-05-07] MEDS: CARDIZEM CD 120 MG 24-HR PO SCH (08:56)
[2022-05-07] MEDS: ZESTRIL TAB 10 MG PO SCH (08:57)
[2022-05-07] MEDS: REQUIP PO SCH ×2 (08:57→20:16)
[2022-05-07] MEDS: LASIX PO SCH ×2 (10:00→20:15)
--- NOTE | 2022-05-07 10:43 | CT ---
HISTORYThoracic aortic aneurysmSTUDYCTA chest with and without contrastTechnique: Axial pre and postcontrast images with coronal, sagittal, and 3 dimensional maximum intensity projection images obtained and evaluated. Dose reduction procedures were used with mA/kv adjusted for body size.COMPARISONCTA chest for pulmonary embolus 05/06/2022FINDINGSVascular findings: There is dilatation of the ascending thoracic aorta maximum AP diameter 6.7 cm. Maximum transverse diameter 7.1 cm. There is an ascending thoracic aortic dissection which begins just above the aortic valve and extends to the proximal arch proximal to the origin of the innominate artery. There is contrast filling both the true and the false lumens. The arch and descending thoracic aorta demonstrates calcific atherosclerotic change but no aneurysmal dilatation or dissection. The origins and visualized portions of the great vessels are normal. The origins and visualized portions of the celiac axis, SMA, and bilateral renal arteries are normal. There is no evidence for acute pulmonary thromboembolic disease.Nonvascular findings: Examination of the mediastinum demonstrated no evidence for mediastinal masses, enlarged mediastinal or enlarged hilar adenopathy. Trace left pleural effusion is identified. No right pleural effusion is identified. There are multiple calcified pleural plaques suggestive of prior asbestos exposure. Those portions of the upper abdominal organs visualized were within normal limits to the limitations of early arterial injection timing. Examination of the lung eric demonstrated hyperinflation with changes of centrilobular emphysema and chronic interstitial lung changes. There is diffuse peribronchial thickening consistent with bronchitis which could be acute, chronic, or both. No alveolar infiltrates, nodules, masses, or areas of consolidation identified.IMPRESSIONAscending thoracic aortic aneurysm maximum AP diameter 6.7 cm and maximum transverse diameter 7.1 cm.Ascending thoracic aortic dissection which begins just above the aortic valve and extends to the proximal arch proximal to the origin of the innominate artery. Contrast fills both the true and false lumens. No intramural hematoma or contrast extravasation identified.Calcific atherosclerotic change in a nondilated arch and descending thoracic aortaNo other significant vascular abnormality identifiedEmphysematous COPD with chronic interstitial lung disease and bronchial thickening consistent with bronchitis which could be acute, chronic, or both.Electronically signed by: KOREY NICOLE (May 07, 2022 10:41:48)
[2022-05-07] MEDS: TOPROL XL PO SCH (11:47)
--- NOTE | 2022-05-08 05:12 | RAD ---
PROCEDURE: Chest X-ray 1 View .HISTORY: Dyspnea and atrial fibrillation.TECHNIQUE: AP portable done at 3:50 a.m..COMPARISON: 05/07/2022.TECHNICAL QUALITY: Satisfactory .FINDINGS:Normal size heart .Mediastinum and hilar regions show no masses or lymphadenopathy .Normal central vascularity .Unchanged patchy consolidation lung bases may represent pneumonia. No pleural fluid or masses.No acute bony abnormality .IMPRESSION:Unchanged patchy pneumonia lung bases.Electronically signed by: Chandu Macedo (May 08, 2022 05:11:03)
[2022-05-08 05:53] LABS: BASOPHILS # (AUTO) 0.1 X10^3/uL (0.0-0.1); BASOPHILS % (AUTO) 0.9 % (0.2-1.0); HEMATOCRIT 37.6 % (42.0-54.0); HEMOGLOBIN 12.3 g/dL (13.5-18.0); LYMPHOCYTES # (AUTO) 0.7 X10^3/uL (1.3-2.9); LYMPHOCYTES % (AUTO) 6.9 % (21.0-51.0); MEAN CORPUSCULAR HGB CONC 32.7 g/dL (33.0-35.0); MEAN CORPUSCULAR VOLUME 88.5 fL (80.0-100.0); MEAN PLATELET VOLUME 7.7 fL (7.4-11.0); MONOCYTES # (AUTO) 0.6 x10^3/uL (0.3-0.8); MONOCYTES % (AUTO) 5.9 % (0.0-13.0); NEUTROPHILS # (AUTO) 8.8 x10^3/uL (2.2-4.8); NEUTROPHILS % (AUTO) 86.3 % (42.0-75.0); RED BLOOD COUNT 4.25 X10^6/uL (4.7-6.0); RED CELL DISTRIBUTION WIDTH 17.7 % (11.6-16.5); WHITE BLOOD COUNT 10.2 X10^3/uL (3.6-10.0)
[2022-05-08 06:05] LABS: ALANINE AMINOTRANSFERASE 20 Units/L (12-78); ALBUMIN 3.2 g/dL (3.4-5.0); ALKALINE PHOSPHATASE 52 Units/L (46-116); ASPARTATE AMINO TRANSFERASE 16 Units/L (15-37); BLOOD UREA NITROGEN 23 mg/dL (7-18); CALCIUM 8.4 mg/dL (8.5-10.1); CARBON DIOXIDE 28.3 mmol/L (21-32); CHLORIDE 102 mmol/L (98-107); COR NA(FOR HYPERGLY) 138 mmol/L (136-145); CREATININE 1.14 mg/dL (0.70-1.30); SODIUM 137 mmol/L (136-145); TOTAL PROTEIN 7.2 g/dL (6.4-8.2); eGFR NON BLACK RACES > 60 (>60)
[2022-05-08] MEDS: NEURONTIN CAP 300 MG PO SCH ×2 (06:09→14:40)
[2022-05-08] MEDS: SOLU-Medrol 40 MG VIAL IVP SCH ×3 (06:10→21:00)
[2022-05-08] MEDS: CARDIZEM CD 120 MG 24-HR PO SCH (10:01)
[2022-05-08] MEDS: REQUIP PO SCH ×2 (10:01→21:00)
[2022-05-08] MEDS: TOPROL XL PO SCH (10:01)
[2022-05-08] MEDS: PAXLOVID CO-PACK (EUA) PO SCH ×2 (10:02→21:00)
[2022-05-08] MEDS: PROTONIX TAB 40 MG PO SCH (10:02)
[2022-05-08] MEDS: LASIX PO SCH ×2 (10:02→20:59)
[2022-05-08] MEDS: LEVAQUIN PREMIX IV 500 MG 500 MG/100 ML BAG IV SCH (10:02)
[2022-05-08] MEDS: ASPIRIN EC 81 MG PO SCH (10:02)
--- NOTE | 2022-05-08 20:02 | PCM.PROG ---
Progress Note - Progress Note for Day of Date of Exam: 05/07/22 - Subjective Subjective: IS CURRENTLY OBSERVATION STATUS FOR TREATMENT OF NEW ONSET A-FIB, COVID-19, AND CHEST PAIN RULE OUT ACUTE [place]. PMH OF HTN AND COPD. TODAY, HE IS ALERT AND ORIENTED, SITTING UP IN THE CHAIR ON MORNING ROUNDS. HE COMPLAINS OF SHORTNESS OF BREATH AND CHEST DISCOMFORT AT TIMES, BUT REPORTS THAT SYMPTOMS ARE TOLERABLE. HE HAD AN UNEVENTFUL NIGHT. HE IS CURRENTLY UTILIZING OXYGEN VIA NASAL CANNULA AT 3 LPM. HIS SATURATIONS HAVE BEEN IN THE 90s THIS MORNING AND THROUGHOUT THE NIGHT. ON EXAMINATION, HEART IS REGULAR IN RATE AND RHYTHM. BILATERAL LUNGS ARE NOTED WITH DIMINISHED LUNG SOUNDS THROUGHOUT. ABDOMEN IS ROUND, SOFT, AND NON-TENDER WITH NORMAL BOWEL SOUNDS NOTED IN ALL QUADRANTS. HER VITALS THIS MORNING ARE: 98.3-99-24-95%-158/88. LABS WERE OBTAINED. WBC 4.1, RBC 4.09, HGB 11.9, HCT 35.9, PLT COUNT 293, SODIUM 137, POTASSIUM 4.0, CHLORIDE 103, CARBON DIOXIDE 29.1, BUN 18, CREATININE 0.86, GLUCOSE 169, CALCIUM 8.4, TOTAL BILI 0.70, AST 13, ALT 11, ALK PHOS 50, CRP 101.10, BNP 3.09, TOTAL PROTEIN 6.7, ALBUMIN 2.8. A CHEST CTA WAS OBTAINED YESTERDAY AND REVEALED: Ascending thoracic aortic aneurysm as described above measuring approximately 6 cm x 7 cm in diameter and with what appears to be a large amount of thrombus in the lateral wall which could be chronic or could represent an acute intramural hematoma due to a nonvisualized dissection. This examination was timed as requested for the evaluation of the pulmonary arterial circulation. CTA timed for the evaluation of the thoracic aorta and its branches is recommended for further evaluation and pending that result immediate vascular surgery evaluation. If the patient is unable have that examination at this time, immediate vascular surgery evaluation is recommended. Reflux of contrast into the inferior vena cava and hepatic veins suggestive of right heart dysfunction. 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 Diffuse peribronchial thickening consistent with bronchitis which could be acute, chronic, or both. AN ECHO WAS OBTAINED AND REVEALED: EJECTION FRACTION OF 66%, MODERATE PULMONARY HTN, IVD ID DILATED WITH POOR INSPIRATION COLLAPSE CONSISTENT WITH ELEVATED RIGHT ATRIAL PRESSURE. RVSP 56mmHg. CHEST XRAY WAS REPEATED THIS MORNING AND REVEALED: Lungs hyperinflated but free of acute infiltrates. Consistent with COPD in the appropriate clinical setting. The patient's known ascending aortic aneurysm is not well demonstrated on this plain film most likely due to leftward rotation which projects the ascending aorta over the spine. PATIENT WAS UNABLE TO URINATE THROUGHOUT THE NIGHT. A LAN CATHETER WAS PLACED. HE IS CURRENTLY RECEIVING CARDIZEM CD 30MG PO ACHS, NITROSTAT 0.4MG SL Q5M PRN, ELIQUIS 5MG PO BID, ECOTRIN 81MG PO DAILY, AND HIS HOME MEDICATIONS OF LASIX, NEURONTIN, NORCO, ZESTRIL, PROTONIX, REQUIP, CRESTOR, AND AMBIEN WERE RESUMED. TODAY, WE WILL REPEAT CTA WITH ATTENTION TO THE AORTA AND ITS BRANCHES. WE WILL DISCONTINUE THE LISINOPRIL AND ELIQUIS AND START METOPROLOL 25MG PO DAILY. OTHERWISE, WE WILL FOLLOW-UP WITH AM LABS AND CONTINUE TO MONITOR. TIME SPENT ON CLINICAL ASSESSMENT, REVIEWING LABS AND IMAGING, DECISION MAKING, AND DOCUMENTATION GREATER THAN 45 MINUTES. - Past Medical Family Social History Past Med/Fam/Surg Hx: No changes since H&P Allergies: Allergies No Known Drug Allergies Allergy (Verified 09/04/17 16:04) - Review of Systems ROS: No change since H&P - Vital Signs and I&O's Vital Signs: Temperature 97.9 F Pulse Rate 67 Respiratory Rate 22 Blood Pressure [Left Arm] 124/78 Blood Pressure 108/74 O2 Sat by Pulse Oximetry 97 Intake and Output: Intake & Output 05/06/22 05/07/22 05/08/22 05/09/22 11:59 11:59 11:59 11:59 Intake Total 490 / 490 830 / 830 840 / 840 100 / 100 Output Total 350 / 350 750 / 750 1150 / 1150 1100 / 1100 Balance 140 / 140 80 / 80 -310 / -310 -1000 / -1000 - Physical Exam Oriented: Normal Eyes: Normal Ear: Normal Nose: Normal Throat: Normal Respiratory: Generalized, Diminished Cardiovascular: Normal : Normal Auscultation: Bowel Sounds: Normal Palpation: Normal Tenderness: Normal Skin: Normal Musculoskeletal: Normal Psychiatric: Normal Mood Description: Calm Affect: Normal Speech Pattern: Clear, Appropriate - Laboratory and Diagnostics Result Diagrams: 05/08/22 05:25 05/08/22 05:25 Labs: Laboratory WBC 10.2 X10^3/uL (3.6-10.0) H 05/08/22 05:25 RBC 4.25 X10^6/uL (4.7-6.0) L 05/08/22 05:25 Hgb 12.3 g/dL (13.5-18.0) L 05/08/22 05:25 Hct 37.6 % (42.0-54.0) L 05/08/22 05:25 MCV 88.5 fL (80.0-100.0) 05/08/22 05:25 MCH 29.0 pg (27.0-34.0) 05/08/22 05:25 MCHC 32.7 g/dL (33.0-35.0) L 05/08/22 05:25 RDW 17.7 % (11.6-16.5) H 05/08/22 05:25 Plt Count 334 X10^3/uL (150.0-450.0) 05/08/22 05:25 MPV 7.7 fL (7.4-11.0) 05/08/22 05:25 Neut % (Auto) 86.3 % (42.0-75.0) H 05/08/22 05:25 Lymph % (Auto) 6.9 % (21.0-51.0) L 05/08/22 05:25 [place] % (Auto) 5.9 % (0.0-13.0) 05/08/22 05:25 Eos % (Auto) 0.0 % (0.9-2.9) L 05/08/22 05:25 Baso % (Auto) 0.9 % (0.2-1.0) 05/08/22 05:25 Neut # (Auto) 8.8 x10^3/uL (2.2-4.8) H 05/08/22 05:25 Lymph # (Auto) 0.7 X10^3/uL (1.3-2.9) L 05/08/22 05:25 [place] # (Auto) 0.6 x10^3/uL (0.3-0.8) 05/08/22 05:25 Eos # (Auto) 0.0 x10^3/uL (0.0-0.2) 05/08/22 05:25 Baso # (Auto) 0.1 X10^3/uL (0.0-0.1) 05/08/22 05:25 Absolute Nucleated RBC 0.4 /100WBC 05/08/22 05:25 PT 15.1 SECONDS (11.8-14.3) 05/05/22 18:24 INR Target Range - 05/05/22 18:24 INR 1.23 (0.8-1.3) 05/05/22 18:24 APTT 25.7 SECONDS (22.9-36.5) 05/05/22 18:24 PTT Comment - 05/05/22 18:24 D-Dimer 2.28 ug/ml (0.0-0.57) H* 05/06/22 05:15 Sample Site Rrad 05/06/22 06:07 ABG pH 7.450 (7.35-7.45) 05/06/22 06:07 ABG pCO2 48.0 mmHg (35.0-45.0) H 05/06/22 06:07 ABG pO2 74.0 mmHg (80.0-100.0) L 05/06/22 06:07 ABG HCO3 33.4 mmol/L (22-26) H* 05/06/22 06:07 ABG O2 Saturation 95.0 % (90-100) 05/06/22 06:07 ABG Base Excess 8.2 mmol/L (-2.0-2.0) H 05/06/22 06:07 Anatoly Test Pos 05/06/22 06:07 A-a Gradient 94.0 mmHg 05/06/22 06:07 FiO2 32.0 05/06/22 06:07 Blood Gas Comments Johnson abg well-mtf 05/06/22 06:07 Sodium 137 mmol/L (136-145) 05/08/22 05:25 Corrected Sodium 138 mmol/L (136-145) 05/08/22 05:25 Potassium 4.4 mmol/L (3.5-5.1) 05/08/22 05:25 Chloride 102 mmol/L (98-107) 05/08/22 05:25 Carbon Dioxide 28.3 mmol/L (21-32) 05/08/22 05:25 BUN 23 mg/dL (7-18) H 05/08/22 05:25 Creatinine 1.14 mg/dL (0.70-1.30) 05/08/22 05:25 Est GFR (MDRD) Af Amer > 60 (>60) 05/08/22 05:25 Est GFR (MDRD) Non-Af > 60 (>60) 05/08/22 05:25 Glucose 135 mg/dL (65-99) H 05/08/22 05:25 Calcium 8.4 mg/dL (8.5-10.1) L 05/08/22 05:25 Corrected Calcium 9.0 mg/dL (8.5-10.1) 05/08/22 05:25 Magnesium 2.2 mg/dL (1.7-2.9) 05/05/22 18:24 Total Bilirubin 0.70 mg/dL (0.2-1.0) 05/08/22 05:25 AST 16 Units/L (15-37) 05/08/22 05:25 ALT 20 Units/L (12-78) 05/08/22 05:25 Alkaline Phosphatase 52 Units/L (46-116) 05/08/22 05:25 Creatine Kinase 75 Units/L (39-308) 05/06/22 00:25 CK-MB (CK-2) < 1.0 ng/mL (0-4.0) 05/06/22 00:25 CK/CKMB % Calc 1.3 % (<4) 05/06/22 00:25 Troponin I High Sens 17.0 ng/L (4.0-60.0) 05/06/22 00:25 C-Reactive Protein 54.40 mg/L (0-3.0) H 05/08/22 05:25 B-Natriuretic Peptide 366 pg/mL (0-79) H 05/08/22 05:25 Total Protein 7.2 g/dL (6.4-8.2) 05/08/22 05:25 Albumin 3.2 g/dL (3.4-5.0) L 05/08/22 05:25 Globulin 4.0 g/dL (2.5-4.5) 05/08/22 05:25 Albumin/Globulin Ratio 0.8 Ratio (1.1-2.1) L 05/08/22 05:25 Specimen Type Catherized urine 05/06/22 20:40 Urine Color Yellow (YELLOW) 05/06/22 20:40 Urine Appearance Clear (CLEAR) 05/06/22 20:40 Urine pH 8.0 (5.0 - 8.0) 05/06/22 20:40 Ur Specific [place] 1.015 (1.000-1.030) 05/06/22 20:40 Urine Protein 2+ (NEGATIVE) 05/06/22 20:40 Urine Glucose (UA) Negative (NEGATIVE) 05/06/22 20:40 Urine Ketones Negative (NEGATIVE) 05/06/22 20:40 Urine Blood 5+ (NEGATIVE) 05/06/22 20:40 Urine Nitrite Negative (NEGATIVE) 05/06/22 20:40 Urine Bilirubin Negative (NEGATIVE) 05/06/22 20:40 Urine Urobilinogen 1+ (NORMAL) 05/06/22 20:40 Ur Leukocyte Esterase Negative (NEGATIVE) 05/06/22 20:40 Urine RBC 30-50 /HPF (0-3) A 05/06/22 20:40 Urine WBC None seen /HPF (0-5) 05/06/22 20:40 Ur Squamous Epith Cells Rare /HPF (NEGATIVE) 05/06/22 20:40 Amorphous Sediment Trace /HPF (NEGATIVE) 05/06/22 20:40 Urine Bacteria Trace /HPF (NEGATIVE) 05/06/22 20:40 Hyaline Casts Few /LPF (NEGATIVE) 05/06/22 01:18 Urine Mucus Few /HPF (NEGATIVE) 05/06/22 01:18 Ur Culture Indicated? No/not indicated 05/06/22 20:40 SARS-CoV-2 (PCR) Positive (NEGATIVE) A 05/05/22 19:45 - Plan (1) New onset a-fib Status: Acute Plan: ECONOMIC DEVELOPMENT SPECIALIST, CARDIZEM CD 30MG PO ACHS, NITROSTAT 0.4MG SL Q5M PRN, METOPROLOL 25MG PO DAILY, ECOTRIN 81MG PO DAILY, AND HIS HOME MEDICATIONS OF LASIX, NEURONTIN, NORCO, PROTONIX, REQUIP, CRESTOR, AND AMBIEN WERE RESUMED. (2) COVID-19 Status: Acute (3) Thoracic aortic aneurysm (TAA) Status: Acute Qualifiers: Presence of rupture: without rupture Qualified Code(s): I71.2 - Thoracic aortic aneurysm, without rupture Plan: REPEAT CHEST CTA WITH ATTENTION TO AORTA (4) Chest pain Status: Acute Qualifiers: Chest pain type: unspecified Qualified Code(s): R07.9 - Chest pain, unspecified (5) HTN (hypertension) Status: Chronic Qualifiers: Hypertension type: primary hypertension Qualified Code(s): I10 - Essential (primary) hypertension (6) COPD (chronic obstructive pulmonary disease) Status: Chronic Qualifiers: COPD type: unspecified COPD Qualified Code(s): J44.9 - Chronic obstructive pulmonary disease, unspecified (7) BPH (benign prostatic hyperplasia) Status: Chronic Qualifiers: Lower urinary tract symptom presence: symptoms present Lower urinary tract symptom detail: urinary retention Qualified Code(s): N40.1 - Benign prostatic hyperplasia with lower urinary tract symptoms; R33.8 - Other retention of urine Plan: LAN CATHETER
[2022-05-08] MEDS ORDERED: XOPENEX 1.25 MG/3 ML NEBULE NEB ONE (20:53)
[2022-05-08] MEDS: XOPENEX 1.25 MG/3 ML NEBULE NEB SCH (21:00)
[2022-05-08] MEDS: NORCO 5/325 MG TAB PO PRN (23:38)
[2022-05-09] MEDS: NEURONTIN CAP 300 MG PO SCH ×3 (00:15→13:44)
[2022-05-09] MEDS: NORCO 5/325 MG TAB PO PRN ×2 (04:06→11:31)
[2022-05-09] MEDS: SOLU-Medrol 40 MG VIAL IVP SCH ×2 (05:09→13:44)
[2022-05-09 05:15] LABS: MONOCYTES # (AUTO) 0.3 x10^3/uL (0.3-0.8); NEUTROPHILS # (AUTO) 5.3 x10^3/uL (2.2-4.8)
[2022-05-09 05:18] LABS: BASOPHILS % (AUTO) 0.2 % (0.2-1.0); HEMATOCRIT 37.8 % (42.0-54.0); HEMOGLOBIN 12.5 g/dL (13.5-18.0); LYMPHOCYTES # (AUTO) 0.6 X10^3/uL (1.3-2.9); LYMPHOCYTES % (AUTO) 9.5 % (21.0-51.0); MEAN CORPUSCULAR HGB CONC 32.9 g/dL (33.0-35.0); MEAN PLATELET VOLUME 7.5 fL (7.4-11.0); MONOCYTES % (AUTO) 5.4 % (0.0-13.0); NEUTROPHILS % (AUTO) 84.9 % (42.0-75.0); RED CELL DISTRIBUTION WIDTH 17.5 % (11.6-16.5); WHITE BLOOD COUNT 6.2 X10^3/uL (3.6-10.0)
[2022-05-09 05:26] LABS: ALANINE AMINOTRANSFERASE 22 Units/L (12-78); ALKALINE PHOSPHATASE 50 Units/L (46-116); ASPARTATE AMINO TRANSFERASE 18 Units/L (15-37); BLOOD UREA NITROGEN 23 mg/dL (7-18); CALCIUM 8.1 mg/dL (8.5-10.1); CARBON DIOXIDE 30.3 mmol/L (21-32); CHLORIDE 102 mmol/L (98-107); COR CA(FOR HYPOALB) 8.9 mg/dL (8.5-10.1); COR NA(FOR HYPERGLY) 141 mmol/L (136-145); CREATININE 1.02 mg/dL (0.70-1.30); SODIUM 139 mmol/L (136-145); eGFR NON BLACK RACES > 60 (>60)
[2022-05-09] MEDS: XOPENEX 1.25 MG/3 ML NEBULE NEB SCH (06:00)
--- NOTE | 2022-05-09 06:47 | RAD ---
HISTORYShortness of breathSTUDYChest AP [id number]/13/2022 chest x-ray, CTA chest 05/07/2022FINDINGSHeart size is normal. Ledy are normal. Aorta is calcified. Lungs are generally hyperinflated. No definite acute alveolar infiltrates or areas of consolidation are identified. No pleural effusions are identified. Left midlung densities are due to overlying pleural calcifications. No pleural effusions are identified. Bony thorax is unremarkable.IMPRESSIONLungs hyperinflated but free of acute infiltrates. Consistent with COPDDensities overlying left midlung field are due to calcified pleural plaques possibly related to prior asbestos exposureElectronically signed by: KOREY NICOLE (May 09, 2022 06:45:29)
[2022-05-09] MEDS: CARDIZEM CD 120 MG 24-HR PO SCH (08:54)
[2022-05-09] MEDS: LASIX PO SCH (08:54)
[2022-05-09] MEDS: ASPIRIN EC 81 MG PO SCH (08:54)
[2022-05-09] MEDS: PROTONIX TAB 40 MG PO SCH (08:55)
[2022-05-09] MEDS: PAXLOVID CO-PACK (EUA) PO SCH (08:55)
[2022-05-09] MEDS: REQUIP PO SCH (08:55)
[2022-05-09] MEDS: TOPROL XL PO SCH (08:55)
[2022-05-09] MEDS: LEVAQUIN PREMIX IV 500 MG 500 MG/100 ML BAG IV SCH (08:55)
[2022-05-09 13:04] VITALS: BP 124/80
== END 2022-05-09 14:05 | disposition home or self-care (01) ==
LOC: ICU 17:54 → ER 17:54 → ICU 22:22
PROVIDERS: ADMIT Internal Medicine; ATTEND Internal Medicine
DX: I48.91 Unspecified atrial fibrillation; R79.82 Elevated C-reactive protein (CRP); U07.1 COVID-19; R06.02 Shortness of breath; Z99.81 Dependence on supplemental oxygen; N40.1 Benign prostatic hyperplasia with lower urinary tract symptoms; R33.8 Other retention of urine; I10 Essential (primary) hypertension; J44.9 Chronic obstructive pulmonary disease, unspecified; R07.89 Other chest pain; I71.2 Thoracic aortic aneurysm, without rupture; R94.31 Abnormal electrocardiogram [ECG] [EKG]

== ENCOUNTER 2022-06-13 16:32 | Inpatient (IN) ==
[2022-06-13] MEDS: XOPENEX 1.25 MG/3 ML NEBULE NEB SCH (17:30)
[2022-06-13] MEDS ORDERED: XOPENEX 1.25 MG/3 ML NEBULE NEB ONE (17:31)
[2022-06-13] MEDS ORDERED: SALINE 3% 15 ML NEB TX ONE (17:31)
[2022-06-13 17:33] LABS: ABG ALLEN TEST POS
[2022-06-13] MEDS ORDERED: TUSSIONEX PENNKINETIC SUSP PO PRN (17:41)
[2022-06-13] MEDS ORDERED: DUONEB 0.5 MG/3 MG (3 mL) NEB SCH (18:00)
[2022-06-13] MEDS: PULMICORT NEB TX 0.5 MG NEB SCH ×2 (18:13→21:17)
[2022-06-13] MEDS ORDERED: SALINE 3% 15 ML NEB TX NEB ONE (18:21)
[2022-06-13 18:27] LABS: BASOPHILS # (AUTO) 0.1 X10^3/uL (0.0-0.1); BASOPHILS % (AUTO) 0.7 % (0.2-1.0); EOSINOPHILS % (AUTO) 0.3 % (0.9-2.9); HEMATOCRIT 38.5 % (42.0-54.0); HEMOGLOBIN 12.4 g/dL (13.5-18.0); LYMPHOCYTES # (AUTO) 1.5 X10^3/uL (1.3-2.9); LYMPHOCYTES % (AUTO) 16.3 % (21.0-51.0); MEAN CORPUSCULAR HEMOGLOBIN 28.5 pg (27.0-34.0); MEAN CORPUSCULAR HGB CONC 32.1 g/dL (33.0-35.0); MEAN CORPUSCULAR VOLUME 88.7 fL (80.0-100.0); MEAN PLATELET VOLUME 8.3 fL (7.4-11.0); MONOCYTES % (AUTO) 10.9 % (0.0-13.0); NEUTROPHILS # (AUTO) 6.5 x10^3/uL (2.2-4.8); NEUTROPHILS % (AUTO) 71.8 % (42.0-75.0); RED BLOOD COUNT 4.34 X10^6/uL (4.7-6.0); RED CELL DISTRIBUTION WIDTH 18.6 % (11.6-16.5)
[2022-06-13 18:40] LABS: ALANINE AMINOTRANSFERASE 14 Units/L (12-78); ALKALINE PHOSPHATASE 58 Units/L (46-116); ASPARTATE AMINO TRANSFERASE 28 Units/L (15-37); BLOOD UREA NITROGEN 17 mg/dL (7-18); CALCIUM 8.2 mg/dL (8.5-10.1); CARBON DIOXIDE 32.6 mmol/L (21-32); CHLORIDE 101 mmol/L (98-107); COR NA(FOR HYPERGLY) 143 mmol/L (136-145); CREATININE 1.22 mg/dL (0.70-1.30); SODIUM 142 mmol/L (136-145); eGFR NON BLACK RACES 60 (>60)
[2022-06-13] MEDS ORDERED: LEVAQUIN PREMIX IV 500 MG 500 MG/100 ML BAG IV ONE (19:00)
[2022-06-13] MEDS ORDERED: SOLU-Medrol 125 MG VIAL ONE (19:00)
[2022-06-13] MEDS ORDERED: FORTAZ or TAZICEF VIAL INJ ONE (19:00)
[2022-06-13] MEDS ORDERED: ROBITUSSIN DM ONE (19:00)
[2022-06-13] MEDS ORDERED: NS 1/2 1,000 ML IV 1,000 ML IV ONE (19:01)
--- NOTE | 2022-06-13 19:05 | RAD ---
HISTORYPneumoniaSTUDYCHEST, 1 VIEWCOMPARISONJuly 2021TECHNIQUEChest radiographic imaging, AP portable projection, 1 imageFINDINGSNo cardiomegaly.Diffuse bilateral increased interstitial markings and hazy peripheral bilateral airspace opacities.No pleural effusion.No pneumothorax.No acute osseous abnormality.IMPRESSIONFindings could represent acute pulmonary edema or an atypical/viral infectious process superimposed on chronic interstitial changes.Electronically signed by: Shorty Lee (Jun 13, 2022 19:03:43)
[2022-06-13] MEDS: SOLU-Medrol 125 MG VIAL IVP ONE ×2 (19:06→19:08)
[2022-06-13] MEDS: LEVAQUIN PREMIX IV 500 MG 500 MG/100 ML BAG IV SCH (19:08)
[2022-06-13] MEDS: ROBITUSSIN DM PO SCH ×2 (19:09→21:55)
[2022-06-13] MEDS: FORTAZ or TAZICEF VIAL INJ IVP SCH ×2 (19:09→21:55)
[2022-06-13] MEDS: NS 1/2 1,000 ML IV 1,000 ML IV SCH (19:09)
[2022-06-13] MEDS ORDERED: NS 100 ML IV 100 ML ONE (21:40)
[2022-06-13] MEDS: VSL#3 PO SCH (21:54)
[2022-06-13] MEDS: SOLU-Medrol 40 MG VIAL IVP SCH (21:55)
[2022-06-14] MEDS: XOPENEX 1.25 MG/3 ML NEBULE NEB SCH ×6 (00:15→18:42)
[2022-06-14 05:30] LABS: ABG ALLEN TEST POS; ABG BASE EXCESS 10.2 mmol/L (-2.0-2.0); ABG HCO3 35.6 mmol/L (22-26)
[2022-06-14] MEDS: SOLU-Medrol 40 MG VIAL IVP SCH ×3 (06:08→21:31)
[2022-06-14] MEDS: FORTAZ or TAZICEF VIAL INJ IVP SCH ×3 (06:08→21:31)
[2022-06-14 06:16] LABS: BASOPHILS % (AUTO) 0.1 % (0.2-1.0); EOSINOPHILS % (AUTO) 0.1 % (0.9-2.9); HEMATOCRIT 35.4 % (42.0-54.0); HEMOGLOBIN 11.4 g/dL (13.5-18.0); LYMPHOCYTES # (AUTO) 0.7 X10^3/uL (1.3-2.9); LYMPHOCYTES % (AUTO) 12.4 % (21.0-51.0); MEAN CORPUSCULAR HEMOGLOBIN 28.3 pg (27.0-34.0); MEAN CORPUSCULAR HGB CONC 32.4 g/dL (33.0-35.0); MEAN CORPUSCULAR VOLUME 87.6 fL (80.0-100.0); MEAN PLATELET VOLUME 7.5 fL (7.4-11.0); MONOCYTES # (AUTO) 0.1 x10^3/uL (0.3-0.8); MONOCYTES % (AUTO) 1.6 % (0.0-13.0); NEUTROPHILS # (AUTO) 4.7 x10^3/uL (2.2-4.8); NEUTROPHILS % (AUTO) 85.8 % (42.0-75.0); RED BLOOD COUNT 4.04 X10^6/uL (4.7-6.0); RED CELL DISTRIBUTION WIDTH 17.9 % (11.6-16.5); WHITE BLOOD COUNT 5.5 X10^3/uL (3.6-10.0)
[2022-06-14 06:31] LABS: ALANINE AMINOTRANSFERASE 13 Units/L (12-78); ALBUMIN 2.8 g/dL (3.4-5.0); ALKALINE PHOSPHATASE 54 Units/L (46-116); ASPARTATE AMINO TRANSFERASE 14 Units/L (15-37); BLOOD UREA NITROGEN 17 mg/dL (7-18); CALCIUM 8.1 mg/dL (8.5-10.1); CARBON DIOXIDE 29.9 mmol/L (21-32); CHLORIDE 101 mmol/L (98-107); COR CA(FOR HYPOALB) 9.1 mg/dL (8.5-10.1); COR NA(FOR HYPERGLY) 141 mmol/L (136-145); CREATININE 1.08 mg/dL (0.70-1.30); SODIUM 140 mmol/L (136-145); TOTAL PROTEIN 6.5 g/dL (6.4-8.2); eGFR NON BLACK RACES > 60 (>60)
[2022-06-14] MEDS: VSL#3 PO SCH (08:00)
[2022-06-14] MEDS: ROBITUSSIN DM PO SCH ×4 (08:00→21:31)
[2022-06-14] MEDS: LEVAQUIN PREMIX IV 500 MG 500 MG/100 ML BAG IV SCH (08:00)
[2022-06-14] MEDS: NS 1/2 1,000 ML IV 1,000 ML IV SCH ×3 (08:02→21:34)
--- NOTE | 2022-06-14 08:03 | RAD ---
HISTORYCOPD, shortness of breathSTUDYChest AP [id number]/18/2022FINDINGSThe heart is upper limits normal in size. The ihsan are normal. The aorta is calcified. The lungs are hyperinflated. Diffuse interstitial lung changes are present possibly consistent with edema versus pneumonitis. Patchy densities overlying the left upper lobe are due to overlying pleural calcifications as indicated on the CTA chest of 05/06/2022. Right pleural effusion is present. Bony thorax is unremarkable with the exception of bilateral glenohumeral joint degenerative joint disease.Diffuse interstitial lung changes which could be on the basis of edema or pneumonitis or perhaps atypical pneumonia. Correlation is recommended.Small right pleural effusionPatchy appearing densities overlying the left upper lobe are due to overlying calcified pleural plaque identified on the CTA chest May 17Electronically signed by: KOREY NICOLE (Jun 14, 2022 08:01:23)
[2022-06-14] MEDS: PULMICORT NEB TX 0.5 MG NEB SCH ×2 (08:24→20:15)
[2022-06-14] MEDS: LOVENOX INJ 40 MG SYR SC SCH (09:10)
[2022-06-14] MEDS ORDERED: NS 100 ML IV 100 ML ONE (12:17)
--- NOTE | 2022-06-14 12:32 | DR.H&P ---
H&P - History & Physical for Day of: H&P Date: 06/13/22 - Chief Complaint Chief Complaint: COUGH, SOB, LOW OXYGEN SATURATIONS - History of Present Illness History of Present Illness: IS A 87 YEAR OLD PATIENT OF OURS. HE PRESENTED TO THE HOSPITAL A DIRECT ADMISSION FOR TREATMENT OF PNEUMONIA AND HYPOXIA. PATIENT TESTED POSITIVE FOR COVID-19 ABOUT A MONTH AGO. HE HAS BEEN ON HOME OXYGEN SINCE THEN. HOME VISITING NURSES REPORT THAT UPON CHECKING ON HIM ON 06/13/22, HE WAS NOTED TO HAVE OXYGEN SATURATIONS OF 84% WHILE ON NASAL CANNULA AT 2 LPM. UPON AUSCULTATION, WHEEZING AND RHONCHI WERE NOTED. WE ADMITTED PATIENT FOR FURTHER EVALUATION AND TREATMENT. ON ARRIVAL TO THE HOSPITAL, HIS VITALS WERE 98.3-76-63%RA-99/47. HE WAS NOT WEARING HIS OXYGEN ON ARRIVAL. WHEN OXYGEN WAS APPLIED AT 2 LPM, SATURATIONS INCREASED TO 86%. LABS WERE OBTAINED. WBC 9.0, RBC 4.34, HGB 12.4, HCT 38.5, D-DIMER 1.90, SODIUM 142, POTASSIUM 5.2, CHLORIDE 101, CARBON DIOXIDE 32.6, BUN 17, CREATININE 1.22, GLUCOSE 132, CALCIUM 8.2, TOTAL BILI 0.90, AST 28, ALT 14, ALK PHOS 58, TOTAL PROTEIN 7.0, ALBUMIN 3.0, CREATINE KINASE 73, TROPONIN 16.9, CRP 30.10, BNP 432. COVID, RSV, AND INFLUENZA NEGATIVE. ABG WAS OBTAINED ON ROOM AIR AND REVEALED: PH 7.450, PC02 46, P02 31, HC03 32, 02 SAT 63, BASE EXCESS 7.0, A-A GRADIENT 61, FI02 21.0. BLOOD AND SPUTUM CULTURES WERE SET UP. A CHEST XRAY WAS OBTAINED AND REVEALED: Findings could represent acute pulmonary edema or an atypical/viral infectious process superimposed on chronic interstitial changes. HE WAS STARTED ON 1/2NS AT 75 ML/HR, LEVAQUIN 500MG IV DAILY, FORTAZ 1G IV Q8H, SOLU-MEDROL 80MG IV Q8H, XOPENEX NEBS Q6H, PULMICORT NEBS BID, TUSSIONEX 5ML PO Q12H, LOVENOX 40MG SC DAILY, ROBITUSSIN DM 10ML PO QID, AND PROBIOTICS. WE WILL RESUME HIS HOME MEDICATIONS. OTHERWISE, WE PLAN TO FOLLOW-UP WITH AM LABS AND CONTINUE TO MONITOR. TIME SPENT ON CLINICAL ASSESSMENT, REVIWING LABS AND IMAGING, DECISION MAKING, AND DOCUMENTATION GREATER THAN 75 MINUTES. - Past Medical History Past Medical History: Hypertension, COPD Additional Medical History: ASCENDING THORACIC AORTIC ANEURYSM - Past Surgical History Surgical History: Ortho Surgery - Family History Family Medical History: Hypertension - Social History Does patient currently use any type of tobacco product: No Have you used tobacco products in the last 12 months: No Type of Tobacco Use: None Does any household member use tobacco: No Alcohol Use: None Drug Use: None - Medications Home Medications: No Known Drug Allergies Allergy (Verified 06/13/22 17:39) - Review of Systems Constitutional: Weakness Eyes: No Symptoms Reported ENT: No Symptoms Reported Respiratory: Cough, Shortness of Breath, SOB with Excertion, Wheezing Cardiovascular: No Symptoms Reported Gastrointestinal: No Symptoms Reported Genitourinary: No Symptoms Reported Musculoskeletal: No Symptoms Reported Skin: No Symptoms Reported Neurological: Weakness - Physical Exam Vital Signs: Temperature 97.7 F Pulse Rate [Left Brachial] 84 Pulse Rate 86 Respiratory Rate 20 Blood Pressure [Left Arm] 110/71 Blood Pressure [Right Arm] 160/92 Blood Pressure 100/55 O2 Sat by Pulse Oximetry 91 Oriented: Normal Eyes: Normal Ear: Normal Nose: Normal Throat: Normal Respiratory: Diminished Throughout, Rhonchi Throughout, Wheezes Throughout Cardiovascular: Normal : Normal Auscultation: Bowel Sounds: Normal Palpation: Normal Tenderness: Normal Skin: Normal Musculoskeletal: Normal Psychiatric: Normal Mood Description: Calm Affect: Normal Speech Pattern: Clear - Assessment/Plan (1) Pneumonia Qualifiers: Pneumonia type: due to unspecified organism Laterality: bilateral Lung location: unspecified part of lung Qualified Code(s): J18.9 - Pneumonia, unspecified organism Status: Acute Plan: ADMIT, 1/2NS AT 75 ML/HR, LEVAQUIN 500MG IV DAILY, FORTAZ 1G IV Q8H, SOLU- MEDROL 80MG IV Q8H, XOPENEX NEBS Q6H, PULMICORT NEBS BID, TUSSIONEX 5ML PO Q12H, LOVENOX 40MG SC DAILY, ROBITUSSIN DM 10ML PO QID, AND PROBIOTICS. (2) Respiratory failure with hypoxia and hypercapnia Qualifiers: Chronicity: acute Qualified Code(s): J96.01 - Acute respiratory failure with hypoxia; J96.02 - Acute respiratory failure with hypercapnia Status: Acute (3) HTN (hypertension) Qualifiers: Hypertension type: primary hypertension Qualified Code(s): I10 - Essential (primary) hypertension Status: Chronic (4) COPD (chronic obstructive pulmonary disease) Qualifiers: COPD type: unspecified COPD Qualified Code(s): J44.9 - Chronic obstructive pulmonary disease, unspecified Status: Chronic - Allergies Allergies/Adverse Reactions: Allergies Allergy/AdvReac Type Severity Reaction Status Date / Time No Known Drug Allergies Allergy Verified 06/13/22 17:39
[2022-06-14] MEDS ORDERED: AMBIEN PO PRN (13:48)
[2022-06-14] MEDS ORDERED: NS 1/2 1,000 ML IV 1,000 ML IV ONE (14:42)
[2022-06-14] MEDS: REQUIP PO SCH ×2 (14:51→21:32)
[2022-06-14] MEDS: LASIX PO SCH (16:33)
[2022-06-14] MEDS: ANTIVERT TAB 25 MG PO SCH (21:32)
[2022-06-14] MEDS: NEURONTIN CAP 300 MG PO SCH (21:32)
[2022-06-14] MEDS: CRESTOR TAB 10 MG PO SCH (21:33)
[2022-06-14] MEDS: FLOMAX PO SCH (21:33)
[2022-06-14] MEDS: NORCO 5/325 MG TAB PO PRN (23:16)
[2022-06-15] MEDS: XOPENEX 1.25 MG/3 ML NEBULE NEB SCH ×4 (00:20→16:59)
[2022-06-15] MEDS: FORTAZ or TAZICEF VIAL INJ IVP SCH ×3 (05:33→21:37)
[2022-06-15] MEDS: REQUIP PO SCH ×3 (05:33→21:38)
[2022-06-15] MEDS: SOLU-Medrol 40 MG VIAL IVP SCH ×3 (05:33→21:38)
[2022-06-15] MEDS ORDERED: NS 1/2 1,000 ML IV 1,000 ML IV ONE ×2 (05:39→20:17)
[2022-06-15 06:39] LABS: BASOPHILS % (AUTO) 0.2 % (0.2-1.0); HEMATOCRIT 33.5 % (42.0-54.0); LYMPHOCYTES # (AUTO) 0.7 X10^3/uL (1.3-2.9); MEAN CORPUSCULAR HEMOGLOBIN 28.7 pg (27.0-34.0); MEAN CORPUSCULAR HGB CONC 32.9 g/dL (33.0-35.0); MEAN CORPUSCULAR VOLUME 87.3 fL (80.0-100.0); MONOCYTES # (AUTO) 0.2 x10^3/uL (0.3-0.8); MONOCYTES % (AUTO) 3.7 % (0.0-13.0); NEUTROPHILS # (AUTO) 5.8 x10^3/uL (2.2-4.8); NEUTROPHILS % (AUTO) 86.1 % (42.0-75.0); RED BLOOD COUNT 3.84 X10^6/uL (4.7-6.0); RED CELL DISTRIBUTION WIDTH 17.6 % (11.6-16.5); WHITE BLOOD COUNT 6.7 X10^3/uL (3.6-10.0)
[2022-06-15 06:55] LABS: ALANINE AMINOTRANSFERASE 13 Units/L (12-78); ALBUMIN 2.8 g/dL (3.4-5.0); ALKALINE PHOSPHATASE 47 Units/L (46-116); ASPARTATE AMINO TRANSFERASE 13 Units/L (15-37); BLOOD UREA NITROGEN 21 mg/dL (7-18); CALCIUM 8.1 mg/dL (8.5-10.1); CARBON DIOXIDE 33.1 mmol/L (21-32); CHLORIDE 101 mmol/L (98-107); COR CA(FOR HYPOALB) 9.1 mg/dL (8.5-10.1); COR NA(FOR HYPERGLY) 142 mmol/L (136-145); CREATININE 1.05 mg/dL (0.70-1.30); SODIUM 141 mmol/L (136-145); TOTAL PROTEIN 6.5 g/dL (6.4-8.2); eGFR NON BLACK RACES > 60 (>60)
--- NOTE | 2022-06-15 07:02 | RAD ---
HISTORYSHORTNESS OF BREATHSTUDYCHEST, 1 [id number]/19/2022.TECHNIQUEAP view of the chestFINDINGSThe cardiac and mediastinal contours appear stable. No significant change in bilateral airspace and interstitial opacities. Blunted costophrenic sulci. Background of COPD. No pneumothorax.IMPRESSIONStable bilateral airspace opacities consistent with pneumonia. Blunted costophrenic sulci may represent pleural parenchymal scarring or small pleural effusions.Electronically signed by: Vadim Gary (Jun 15, 2022 07:00:23)
[2022-06-15] MEDS: PULMICORT NEB TX 0.5 MG NEB SCH ×2 (08:29→20:30)
[2022-06-15] MEDS: PROTONIX TAB 40 MG PO SCH (09:01)
[2022-06-15] MEDS: CARDIZEM CD 120 MG 24-HR PO SCH (09:01)
[2022-06-15] MEDS: LEVAQUIN PREMIX IV 500 MG 500 MG/100 ML BAG IV SCH (09:01)
[2022-06-15] MEDS: VSL#3 PO SCH (09:01)
[2022-06-15] MEDS: TOPROL XL PO SCH (09:02)
[2022-06-15] MEDS: ROBITUSSIN DM PO SCH ×4 (09:02→20:25)
[2022-06-15] MEDS: LOVENOX INJ 40 MG SYR SC SCH (09:02)
[2022-06-15] MEDS: ASPIRIN EC 81 MG PO SCH (09:02)
[2022-06-15] MEDS: ANTIVERT TAB 25 MG PO SCH ×2 (09:02→20:27)
[2022-06-15] MEDS: LASIX PO SCH ×2 (09:05→17:23)
[2022-06-15] MEDS: NORCO 5/325 MG TAB PO PRN ×2 (14:23→22:59)
[2022-06-15] MEDS: NS 1/2 1,000 ML IV 1,000 ML IV SCH ×2 (20:24→22:10)
[2022-06-15] MEDS: CRESTOR TAB 10 MG PO SCH (20:25)
[2022-06-15] MEDS: NEURONTIN CAP 300 MG PO SCH (20:25)
[2022-06-15] MEDS: MELATONIN PO PRN (20:26)
[2022-06-15] MEDS: FLOMAX PO SCH (20:26)
[2022-06-16] MEDS: XOPENEX 1.25 MG/3 ML NEBULE NEB SCH ×4 (00:15→17:10)
[2022-06-16] MEDS: NS 1/2 1,000 ML IV 1,000 ML IV SCH ×3 (02:14→16:22)
[2022-06-16] MEDS: FORTAZ or TAZICEF VIAL INJ IVP SCH ×3 (05:41→21:14)
[2022-06-16] MEDS: REQUIP PO SCH ×3 (05:42→21:14)
[2022-06-16] MEDS: SOLU-Medrol 40 MG VIAL IVP SCH ×3 (05:42→21:14)
[2022-06-16 06:27] LABS: BASOPHILS % (AUTO) 0 % (0.2-1.0); HEMATOCRIT 33.3 % (42.0-54.0); HEMOGLOBIN 11.1 g/dL (13.5-18.0); LYMPHOCYTES # (AUTO) 0.7 X10^3/uL (1.3-2.9); LYMPHOCYTES % (AUTO) 8.6 % (21.0-51.0); MEAN CORPUSCULAR HEMOGLOBIN 28.8 pg (27.0-34.0); MEAN CORPUSCULAR HGB CONC 33.2 g/dL (33.0-35.0); MEAN CORPUSCULAR VOLUME 86.6 fL (80.0-100.0); MEAN PLATELET VOLUME 7.8 fL (7.4-11.0); MONOCYTES # (AUTO) 0.3 x10^3/uL (0.3-0.8); MONOCYTES % (AUTO) 3.7 % (0.0-13.0); NEUTROPHILS # (AUTO) 7.4 x10^3/uL (2.2-4.8); NEUTROPHILS % (AUTO) 87.7 % (42.0-75.0); RED BLOOD COUNT 3.85 X10^6/uL (4.7-6.0); RED CELL DISTRIBUTION WIDTH 18.3 % (11.6-16.5); WHITE BLOOD COUNT 8.4 X10^3/uL (3.6-10.0)
[2022-06-16 06:43] LABS: ALANINE AMINOTRANSFERASE 16 Units/L (12-78); ALBUMIN 2.8 g/dL (3.4-5.0); ALKALINE PHOSPHATASE 43 Units/L (46-116); ASPARTATE AMINO TRANSFERASE 20 Units/L (15-37); BLOOD UREA NITROGEN 24 mg/dL (7-18); CALCIUM 7.8 mg/dL (8.5-10.1); CARBON DIOXIDE 32.2 mmol/L (21-32); CHLORIDE 99 mmol/L (98-107); COR CA(FOR HYPOALB) 8.8 mg/dL (8.5-10.1); COR NA(FOR HYPERGLY) 141 mmol/L (136-145); CREATININE 0.97 mg/dL (0.70-1.30); SODIUM 140 mmol/L (136-145); TOTAL PROTEIN 6.3 g/dL (6.4-8.2); eGFR NON BLACK RACES > 60 (>60)
[2022-06-16] MEDS ORDERED: K-RIDER 10 MEQ/NS 100 ML 10 MEQ/100 ML BAG IV PRN (07:29)
[2022-06-16] MEDS ORDERED: POTASSIUM CHL 40 MEQ/NS 0.45% 500 ML IV PRN (07:29)
[2022-06-16] MEDS ORDERED: POTASSIUM CHL 60 MEQ/NS 0.45% 500 ML IV PRN (07:29)
[2022-06-16] MEDS ORDERED: KLOR-CON PO PRN (07:29)
[2022-06-16] MEDS ORDERED: MICRO K EXTEN CAP 10 MEQ PO PRN (07:29)
[2022-06-16] MEDS ORDERED: POTASSIUM CHLORIDE LIQ 20 MEQ UDC PO PRN (07:29)
--- NOTE | 2022-06-16 07:54 | RAD ---
HISTORYshortness of breathSTUDYCHEST, 1 [id number]/20/2022.TECHNIQUEAP view of the chestFINDINGSCardiac and mediastinal contours are within normal limits. No significant change in bilateral airspace and interstitial opacities. Suspect right worse than left small pleural effusions. No pneumothorax.IMPRESSIONNo significant change compared to prior radiograph.Electronically signed by: Vadim Gary (Jun 16, 2022 07:52:43)
[2022-06-16] MEDS: PROTONIX TAB 40 MG PO SCH (08:12)
[2022-06-16] MEDS: VSL#3 PO SCH (08:12)
[2022-06-16] MEDS: CARDIZEM CD 120 MG 24-HR PO SCH (08:12)
[2022-06-16] MEDS: ASPIRIN EC 81 MG PO SCH (08:12)
[2022-06-16] MEDS: LASIX PO SCH ×2 (08:12→16:22)
[2022-06-16] MEDS: ROBITUSSIN DM PO SCH ×4 (08:12→20:18)
[2022-06-16] MEDS: ANTIVERT TAB 25 MG PO SCH ×2 (08:13→20:17)
[2022-06-16] MEDS: LEVAQUIN PREMIX IV 500 MG 500 MG/100 ML BAG IV SCH (08:13)
[2022-06-16] MEDS: K-DUR TAB 20 MEQ PO PRN (08:13)
[2022-06-16] MEDS: TOPROL XL PO SCH (08:14)
[2022-06-16] MEDS: LOVENOX INJ 40 MG SYR SC SCH (08:15)
[2022-06-16] MEDS ORDERED: NS 1/2 1,000 ML IV 1,000 ML IV ONE (08:24)
[2022-06-16] MEDS: NORCO 5/325 MG TAB PO PRN ×3 (08:26→22:13)
[2022-06-16] MEDS: PULMICORT NEB TX 0.5 MG NEB SCH ×2 (08:30→21:00)
[2022-06-16] MEDS: MAGNESIUM SULFATE 1 GRAM/100 mL PREMIX 1 G/100 ML BAG IV PRN ×2 (09:53→11:20)
[2022-06-16] MEDS: FLOMAX PO SCH (20:17)
[2022-06-16] MEDS: NEURONTIN CAP 300 MG PO SCH (20:17)
[2022-06-16] MEDS: CRESTOR TAB 10 MG PO SCH (20:17)
[2022-06-16] MEDS: MELATONIN PO PRN (22:13)
[2022-06-17] MEDS: XOPENEX 1.25 MG/3 ML NEBULE NEB SCH ×4 (00:05→17:30)
[2022-06-17] MEDS ORDERED: NS 1/2 1,000 ML IV 1,000 ML IV ONE ×2 (02:40→18:25)
[2022-06-17] MEDS: NS 1/2 1,000 ML IV 1,000 ML IV SCH ×4 (02:51→21:30)
[2022-06-17] MEDS: FORTAZ or TAZICEF VIAL INJ IVP SCH ×3 (05:27→21:30)
[2022-06-17] MEDS: REQUIP PO SCH ×3 (05:27→21:31)
[2022-06-17] MEDS: SOLU-Medrol 40 MG VIAL IVP SCH ×3 (05:28→21:31)
[2022-06-17 05:52] LABS: BASOPHILS % (AUTO) 0.1 % (0.2-1.0); HEMATOCRIT 34.9 % (42.0-54.0); HEMOGLOBIN 11.6 g/dL (13.5-18.0); LYMPHOCYTES # (AUTO) 0.6 X10^3/uL (1.3-2.9); LYMPHOCYTES % (AUTO) 8.2 % (21.0-51.0); MEAN CORPUSCULAR HEMOGLOBIN 28.6 pg (27.0-34.0); MEAN CORPUSCULAR HGB CONC 33.2 g/dL (33.0-35.0); MEAN CORPUSCULAR VOLUME 85.9 fL (80.0-100.0); MEAN PLATELET VOLUME 7.6 fL (7.4-11.0); MONOCYTES # (AUTO) 0.3 x10^3/uL (0.3-0.8); MONOCYTES % (AUTO) 4.6 % (0.0-13.0); NEUTROPHILS # (AUTO) 6.4 x10^3/uL (2.2-4.8); NEUTROPHILS % (AUTO) 87.1 % (42.0-75.0); RED BLOOD COUNT 4.06 X10^6/uL (4.7-6.0); RED CELL DISTRIBUTION WIDTH 17.9 % (11.6-16.5); WHITE BLOOD COUNT 7.4 X10^3/uL (3.6-10.0)
[2022-06-17 06:03] LABS: ALANINE AMINOTRANSFERASE 20 Units/L (12-78); ALBUMIN 2.9 g/dL (3.4-5.0); ALKALINE PHOSPHATASE 46 Units/L (46-116); ASPARTATE AMINO TRANSFERASE 24 Units/L (15-37); BLOOD UREA NITROGEN 25 mg/dL (7-18); CALCIUM 7.8 mg/dL (8.5-10.1); CARBON DIOXIDE 32.3 mmol/L (21-32); CHLORIDE 98 mmol/L (98-107); COR CA(FOR HYPOALB) 8.7 mg/dL (8.5-10.1); COR NA(FOR HYPERGLY) 139 mmol/L (136-145); CREATININE 0.97 mg/dL (0.70-1.30); MAGNESIUM 2.2 mg/dL (1.7-2.9); SODIUM 138 mmol/L (136-145); TOTAL PROTEIN 6.4 g/dL (6.4-8.2); eGFR NON BLACK RACES > 60 (>60)
--- NOTE | 2022-06-17 07:03 | RAD ---
HISTORYFollow-up pneumonia, shortness of breathSTUDYChest AP [id number]/21/2022FINDINGSHear t is enlarged. No definite congestive heart failure is noted on today's examination. The ihsan are normal. The aorta is calcified. Lungs are generally hyperinflated. Bilateral diffuse interstitial lung changes are present and not significantly different from the prior examination. There are some patchy infiltrates also unchanged from the prior examination. Bony thorax is unremarkable.IMPRESSIONNo significant change from the prior examinationElectronically signed by: KOREY NICOLE (Jun 17, 2022 07:02:17)
[2022-06-17] MEDS: ASPIRIN EC 81 MG PO SCH (08:25)
[2022-06-17] MEDS: LASIX PO SCH ×2 (08:25→17:31)
[2022-06-17] MEDS: PROTONIX TAB 40 MG PO SCH (08:25)
[2022-06-17] MEDS: ANTIVERT TAB 25 MG PO SCH ×2 (08:25→20:28)
[2022-06-17] MEDS: ROBITUSSIN DM PO SCH ×4 (08:25→20:29)
[2022-06-17] MEDS: LEVAQUIN PREMIX IV 500 MG 500 MG/100 ML BAG IV SCH (08:25)
[2022-06-17] MEDS: TOPROL XL PO SCH (08:25)
[2022-06-17] MEDS: VSL#3 PO SCH (08:25)
[2022-06-17] MEDS: CARDIZEM CD 120 MG 24-HR PO SCH (08:27)
[2022-06-17] MEDS: LOVENOX INJ 40 MG SYR SC SCH (08:32)
[2022-06-17] MEDS: PULMICORT NEB TX 0.5 MG NEB SCH ×2 (09:05→21:00)
--- NOTE | 2022-06-17 13:17 | PCM.PROG ---
Progress Note - Progress Note for Day of Date of Exam: 06/15/22 - Subjective Subjective: WAS ADMITTED FOR TREATMENT OF BILATERAL LOWER PLBE PNEUMONIA, RESPIRATORY FAILURE WITH HYPOXIA AND HYPRECAPNIA, HTN, AND COPD. TODAY, HE IS ALERT AND ORIENTED, LYING IN BED ON MORNING ROUNDS. HE CONTINUES WITH COMPLAINTS OF A COUGH AND SHORTNESS OF BREATH. HE DENIES OTHER COMPLAINTS. NURSING STAFF REPORT THAT HE WAS AGITATED THROUGHOUT THE NIGHT. ON EXAMINATION, HEART IS REGULAR IN RATE AND RHYTHM. BILATERAL LUNGS ARE NOTED WITH DIMINISHED LUNG SOUNDS THROUGHOUT. ABDOMEN IS ROUND, SOFT, AND NON-TENDER WITH NORMAL BOWEL SOUNDS NOTED IN ALL QUADRANTS. TRACE LOWER EXTREMITY EDEMA NOTED. HER VITALS THIS MORNING ARE: 97.5-81-22-91% NC@2, 109/65. LABS WERE OBTAINED. WBC 6.7, RBC 3.84, HGB 11.0, HCT 33.5, PLT COUNT 215, SODIUM 141, POTASSIUM 3.9, CHLORIDE 101, BUN 21, CREATININE 1.05, GLUCOSE 148, CALCIUM 8.1, AST 13, ALT 13, ALK PHOS 47, TOTAL PROTEIN 6.5, ALBUMIN 2.8. BLOOD AND SPUTUM CULTURES ARE PENDING. CHEST XRAY REVEALED: Stable bilateral airspace opacities consistent with pneumonia. Blunted costophrenic sulci may represent pleural parenchymal scarring or small pleural effusions. HE IS CURRENTLY RECEIVING 1/2NS AT 75 ML/HR, LEVAQUIN 500MG IV DAILY, FORTAZ 1G IV Q8H, SOLU-MEDROL 80MG IV Q8H, XOPENEX NEBS Q6H, PULMICORT NEBS BID, TUSSIONEX 5ML PO Q12H, LOVENOX 40MG SC DAILY, ROBITUSSIN DM 10ML PO QID, AND PROBIOTICS. WE WILL RESUME HER HOME MEDICATIONS TODAY. OTHERWISE, WE WILL FOLLOW-UP WITH AM LABS AND CONTINUE TO MONITOR. TIME SPENT ON CLINICAL ASSESSMENT, REVIWING LABS AND IMAGING, DECISION MAKING, AND DOCUMENTATION GREATER THAN 45 MINUTES. - Past Medical Family Social History Past Med/Fam/Surg Hx: No changes since H&P Allergies: Allergies No Known Drug Allergies Allergy (Verified 06/13/22 17:39) - Review of Systems ROS: No change since H&P - Vital Signs and I&O's Vital Signs: Temperature 97.9 F Pulse Rate [Left Brachial] 83 Pulse Rate 130 Respiratory Rate 20 Blood Pressure [Left Arm] 128/76 Blood Pressure [Right Arm] 160/92 Blood Pressure 100/55 O2 Sat by Pulse Oximetry 90 Intake and Output: Intake & Output 06/15/22 06/16/22 06/17/22 06/18/22 11:59 11:59 11:59 11:59 Intake Total 5560 / 5560 2727 / 2727 2785 / 2785 Output Total 2150 / 2150 2300 / 2300 2250 / 2250 Balance 3410 / 3410 427 / 427 535 / 535 - Physical Exam Oriented: Normal Eyes: Normal Ear: Normal Nose: Normal Throat: Normal Respiratory: Diminished, Rhonchi Cardiovascular: Normal : Normal Auscultation: Bowel Sounds: Normal Palpation: Normal Tenderness: Normal Skin: Normal Musculoskeletal: Normal Psychiatric: Normal Mood Description: Calm Affect: Normal Speech Pattern: Clear, Appropriate - Laboratory and Diagnostics Result Diagrams: 06/17/22 05:20 06/17/22 05:20 Labs: 06/13/22 18:05 Sputum - Expectorated Sputum Sputum Culture - Final Streptococcus Pneumoniae 06/13/22 18:05 Sputum - Expectorated Sputum - Final 06/13/22 17:54 Blood Blood Culture - Preliminary 06/13/22 17:30 Blood Blood Culture - Preliminary Laboratory WBC 7.4 X10^3/uL (3.6-10.0) 06/17/22 05:20 RBC 4.06 X10^6/uL (4.7-6.0) L 06/17/22 05:20 Hgb 11.6 g/dL (13.5-18.0) L 06/17/22 05:20 Hct 34.9 % (42.0-54.0) L 06/17/22 05:20 MCV 85.9 fL (80.0-100.0) 06/17/22 05:20 MCH 28.6 pg (27.0-34.0) 06/17/22 05:20 MCHC 33.2 g/dL (33.0-35.0) 06/17/22 05:20 RDW 17.9 % (11.6-16.5) H 06/17/22 05:20 Plt Count 223 X10^3/uL (150.0-450.0) 06/17/22 05:20 MPV 7.6 fL (7.4-11.0) 06/17/22 05:20 Neut % (Auto) 87.1 % (42.0-75.0) H 06/17/22 05:20 Lymph % (Auto) 8.2 % (21.0-51.0) L 06/17/22 05:20 [place] % (Auto) 4.6 % (0.0-13.0) 06/17/22 05:20 Eos % (Auto) 0.0 % (0.9-2.9) L 06/17/22 05:20 Baso % (Auto) 0.1 % (0.2-1.0) L 06/17/22 05:20 Neut # (Auto) 6.4 x10^3/uL (2.2-4.8) H 06/17/22 05:20 Lymph # (Auto) 0.6 X10^3/uL (1.3-2.9) L 06/17/22 05:20 [place] # (Auto) 0.3 x10^3/uL (0.3-0.8) 06/17/22 05:20 Eos # (Auto) 0.0 x10^3/uL (0.0-0.2) 06/17/22 05:20 Baso # (Auto) 0.0 X10^3/uL (0.0-0.1) 06/17/22 05:20 Absolute Nucleated RBC 0.1 /100WBC 06/17/22 05:20 D-Dimer 1.90 ug/ml (0.0-0.57) H 06/13/22 17:30 Sample Site Rr 06/14/22 05:00 ABG pH 7.460 (7.35-7.45) H 06/14/22 05:00 ABG pCO2 50.0 mmHg (35.0-45.0) H 06/14/22 05:00 ABG pO2 65.0 mmHg (80.0-100.0) L 06/14/22 05:00 ABG HCO3 35.6 mmol/L (22-26) H* 06/14/22 05:00 ABG O2 Saturation 94.0 % (90-100) 06/14/22 05:00 ABG Base Excess 10.2 mmol/L (-2.0-2.0) H 06/14/22 05:00 Anatoly Test Pos 06/14/22 05:00 A-a Gradient 129.0 mmHg 06/14/22 05:00 FiO2 36.0 06/14/22 05:00 Blood Gas Comments [facility] 06/14/22 05:00 Sodium 138 mmol/L (136-145) 06/17/22 05:20 Corrected Sodium 139 mmol/L (136-145) 06/17/22 05:20 Potassium 3.8 mmol/L (3.5-5.1) 06/17/22 05:20 Chloride 98 mmol/L (98-107) 06/17/22 05:20 Carbon Dioxide 32.3 mmol/L (21-32) H 06/17/22 05:20 BUN 25 mg/dL (7-18) H 06/17/22 05:20 Creatinine 0.97 mg/dL (0.70-1.30) 06/17/22 05:20 Est GFR (MDRD) Af Amer > 60 (>60) 06/17/22 05:20 Est GFR (MDRD) Non-Af > 60 (>60) 06/17/22 05:20 Glucose 141 mg/dL (65-99) H 06/17/22 05:20 Calcium 7.8 mg/dL (8.5-10.1) L 06/17/22 05:20 Corrected Calcium 8.7 mg/dL (8.5-10.1) 06/17/22 05:20 Magnesium 2.2 mg/dL (1.7-2.9) 06/17/22 05:20 Total Bilirubin 0.50 mg/dL (0.2-1.0) 06/17/22 05:20 AST 24 Units/L (15-37) 06/17/22 05:20 ALT 20 Units/L (12-78) 06/17/22 05:20 Alkaline Phosphatase 46 Units/L (46-116) 06/17/22 05:20 Creatine Kinase 73 Units/L (39-308) 06/13/22 17:54 Troponin I High Sens 16.9 ng/L (4.0-60.0) 06/13/22 17:54 C-Reactive Protein 30.10 mg/L (0-3.0) H 06/13/22 17:54 B-Natriuretic Peptide 429 pg/mL (0-79) H 06/14/22 05:51 Total Protein 6.4 g/dL (6.4-8.2) 06/17/22 05:20 Albumin 2.9 g/dL (3.4-5.0) L 06/17/22 05:20 Globulin 3.5 g/dL (2.5-4.5) 06/17/22 05:20 Albumin/Globulin Ratio 0.8 Ratio (1.1-2.1) L 06/17/22 05:20 SARS-CoV-2 (PCR) Negative (NEGATIVE) 06/13/22 17:59 Influenza Type A (PCR) Negative (NEGATIVE) 06/13/22 17:59 Influenza Type B (PCR) Negative (NEGATIVE) 06/13/22 17:59 RSV (PCR) Negative (NEGATIVE) 06/13/22 17:59 - Plan (1) Pneumonia Status: Acute Qualifiers: Pneumonia type: due to unspecified organism Laterality: bilateral Lung location: unspecified part of lung Qualified Code(s): J18.9 - Pneumonia, unspecified organism Plan: 1/2NS AT 75 ML/HR, LEVAQUIN 500MG IV DAILY, FORTAZ 1G IV Q8H, SOLU-MEDROL 80MG IV Q8H, XOPENEX NEBS Q6H, PULMICORT NEBS BID, TUSSIONEX 5ML PO Q12H, LOVENOX 40MG SC DAILY, ROBITUSSIN DM 10ML PO QID, AND PROBIOTICS. RESUME HOME MEDS (2) Respiratory failure with hypoxia and hypercapnia Status: Acute Qualifiers: Chronicity: acute Qualified Code(s): J96.01 - Acute respiratory failure with hypoxia; J96.02 - Acute respiratory failure with hypercapnia (3) HTN (hypertension) Status: Chronic Qualifiers: Hypertension type: primary hypertension Qualified Code(s): I10 - Essential (primary) hypertension (4) COPD (chronic obstructive pulmonary disease) Status: Chronic Qualifiers: COPD type: unspecified COPD Qualified Code(s): J44.9 - Chronic obstructive pulmonary disease, unspecified
[2022-06-17] MEDS: HALDOL INJ IM PRN ×2 (18:29→22:58)
[2022-06-17] MEDS: NORCO 5/325 MG TAB PO PRN (19:52)
[2022-06-17] MEDS: MELATONIN PO PRN (19:52)
[2022-06-17] MEDS: NEURONTIN CAP 300 MG PO SCH (20:23)
[2022-06-17] MEDS: FLOMAX PO SCH (20:26)
[2022-06-17] MEDS: CRESTOR TAB 10 MG PO SCH (20:27)
[2022-06-17] MEDS ORDERED: SEROquel TAB 25 mg PO SCH (21:00)
[2022-06-18] MEDS: XOPENEX 1.25 MG/3 ML NEBULE NEB SCH ×4 (01:15→16:53)
[2022-06-18] MEDS: FORTAZ or TAZICEF VIAL INJ IVP SCH ×3 (05:30→21:51)
[2022-06-18] MEDS: SOLU-Medrol 40 MG VIAL IVP SCH ×3 (05:31→21:50)
[2022-06-18] MEDS: REQUIP PO SCH ×3 (05:31→21:51)
[2022-06-18 05:55] LABS: BASOPHILS % (AUTO) 0.1 % (0.2-1.0); HEMATOCRIT 31.9 % (42.0-54.0); HEMOGLOBIN 10.7 g/dL (13.5-18.0); LYMPHOCYTES # (AUTO) 0.8 X10^3/uL (1.3-2.9); LYMPHOCYTES % (AUTO) 9.4 % (21.0-51.0); MEAN CORPUSCULAR HEMOGLOBIN 28.9 pg (27.0-34.0); MEAN CORPUSCULAR HGB CONC 33.6 g/dL (33.0-35.0); MEAN CORPUSCULAR VOLUME 85.8 fL (80.0-100.0); MEAN PLATELET VOLUME 7.8 fL (7.4-11.0); MONOCYTES # (AUTO) 0.6 x10^3/uL (0.3-0.8); MONOCYTES % (AUTO) 7.2 % (0.0-13.0); NEUTROPHILS # (AUTO) 7.3 x10^3/uL (2.2-4.8); NEUTROPHILS % (AUTO) 83.3 % (42.0-75.0); RED BLOOD COUNT 3.72 X10^6/uL (4.7-6.0); RED CELL DISTRIBUTION WIDTH 17.4 % (11.6-16.5); WHITE BLOOD COUNT 8.8 X10^3/uL (3.6-10.0)
[2022-06-18 06:16] LABS: ALANINE AMINOTRANSFERASE 28 Units/L (12-78); ALKALINE PHOSPHATASE 40 Units/L (46-116); ASPARTATE AMINO TRANSFERASE 36 Units/L (15-37); BLOOD UREA NITROGEN 32 mg/dL (7-18); CALCIUM 7.7 mg/dL (8.5-10.1); CARBON DIOXIDE 30.9 mmol/L (21-32); CHLORIDE 99 mmol/L (98-107); COR CA(FOR HYPOALB) 8.5 mg/dL (8.5-10.1); COR NA(FOR HYPERGLY) 139 mmol/L (136-145); CREATININE 1.04 mg/dL (0.70-1.30); SODIUM 139 mmol/L (136-145); TOTAL PROTEIN 6.1 g/dL (6.4-8.2); eGFR NON BLACK RACES > 60 (>60)
--- NOTE | 2022-06-18 07:12 | RAD ---
HISTORYFollow-up pneumonia, shortness of breathSTUDYChest AP [id number] heart remains enlarged. No definite congestive heart failure identified. The ihsan are normal. The aorta is calcified. Lungs are generally hyperinflated. Diffuse bilateral interstitial lung changes are again identified and unchanged. Scattered patchy infiltrates are present and unchanged. Bony thorax is unremarkable.IMPRESSIONNo change cardiomegaly without congestive heart failureNo change hyperinflation with diffuse interstitial lung changesNo change scattered patchy infiltratesElectronically signed by: KOREY NICOLE (Jun 18, 2022 07:10:36)
[2022-06-18] MEDS: ROBITUSSIN DM PO SCH ×4 (08:05→21:51)
[2022-06-18] MEDS: ANTIVERT TAB 25 MG PO SCH ×2 (08:05→21:53)
[2022-06-18] MEDS: VSL#3 PO SCH (08:05)
[2022-06-18] MEDS: TOPROL XL PO SCH (08:05)
[2022-06-18] MEDS: ASPIRIN EC 81 MG PO SCH (08:05)
[2022-06-18] MEDS: CARDIZEM CD 120 MG 24-HR PO SCH (08:05)
[2022-06-18] MEDS: PROTONIX TAB 40 MG PO SCH (08:06)
[2022-06-18] MEDS: LOVENOX INJ 40 MG SYR SC SCH (08:06)
[2022-06-18] MEDS: LEVAQUIN PREMIX IV 500 MG 500 MG/100 ML BAG IV SCH (08:06)
[2022-06-18] MEDS: LASIX PO SCH ×2 (08:06→17:25)
[2022-06-18] MEDS: PULMICORT NEB TX 0.5 MG NEB SCH ×2 (09:55→20:20)
[2022-06-18] MEDS: SEROquel TAB 25 mg PO SCH ×2 (10:15→21:52)
[2022-06-18] MEDS: NS 1/2 1,000 ML IV 1,000 ML IV SCH (10:16)
[2022-06-18] MEDS: NORCO 5/325 MG TAB PO PRN (12:38)
--- NOTE | 2022-06-18 12:49 | PCM.PROG ---
Progress Note - Progress Note for Day of Date of Exam: 06/16/22 - Subjective Subjective: WAS ADMITTED FOR TREATMENT OF BILATERAL LOWER PLBE PNEUMONIA, RESPIRATORY FAILURE WITH HYPOXIA AND HYPRECAPNIA, HTN, AND COPD. TODAY, HE IS ALERT AND ORIENTED, LYING IN BED ON MORNING ROUNDS. HE CONTINUES WITH COMPLAINTS OF A COUGH, SHORTNESS OF BREATH, AND WEAKNESS. HE DENIES OTHER COMPLAINTS. ON EXAMINATION, HEART IS REGULAR IN RATE AND RHYTHM. BILATERAL LUNGS ARE NOTED WITH RHONCHI THROUGHOUT. ABDOMEN IS ROUND, SOFT, AND NON-TENDER WITH NORMAL BOWEL SOUNDS NOTED IN ALL QUADRANTS. TRACE LOWER EXTREMITY EDEMA NOTED. HER VITALS THIS MORNING ARE: 97.6-82-22-92%-147/92. HE IS CURRENTLY UTILIZING OXYGEN VIA NASAL CANNULA AT 3-4 LPM. LABS WERE OBTAINED. WBC 8.4, RBC 3.85, HGB 11.1, HCT 33.3, SODIUM 140, POTASSIUM 3.7, BUN 24, CREATININE 0.97, GLUCOSE 133, CALCIUM 7.8, AST 20, ALT 16, ALK PHOS 43, TOTAL PROTEIN 6.3, ALBUMIN 2.8. BLOOD AND SPUTUM CULTURES ARE PENDING. CHEST XRAY REVEALED: Cardiac and mediastinal contours are within normal limits. No significant change in bilateral airspace and interstitial opacities. Suspect right worse than left small pleural effusions. No pneumothorax. HE IS CURRENTLY RECEIVING 1/2NS AT 75 ML/HR, LEVAQUIN 500MG IV DAILY, FORTAZ 1G IV Q8H, SOLU-MEDROL 80MG IV Q8H, XOPENEX NEBS Q6H, PULMICORT NEBS BID, TUSSIONEX 5ML PO Q12H, LOVENOX 40MG SC DAILY, ROBITUSSIN DM 10ML PO QID, AND PROBIOTICS. HIS HOME MEDICATIONS WERE ALSO RESUMED. WE WILL ADD THE POTASSIUM AND MAGNESIUM PROTOCOLS TODAY. OTHERWISE, WE WILL FOLLOW-UP WITH AM LABS AND CONTINUE TO MONITOR. TIME SPENT ON CLINICAL ASSESSMENT, REVIWING LABS AND IMAGING, DECISION MAKING, AND DOCUMENTATION GREATER THAN 45 MINUTES. - Past Medical Family Social History Past Med/Fam/Surg Hx: No changes since H&P Allergies: Allergies No Known Drug Allergies Allergy (Verified 06/13/22 17:39) - Review of Systems ROS: No change since H&P - Vital Signs and I&O's Vital Signs: Temperature 97.5 F Pulse Rate [Left Brachial] 75 Pulse Rate 54 Respiratory Rate 30 Blood Pressure [Left Arm] 165/71 Blood Pressure [Right Arm] 160/92 Blood Pressure 100/55 O2 Sat by Pulse Oximetry 91 Intake and Output: Intake & Output 06/16/22 06/17/22 06/18/22 06/19/22 11:59 11:59 11:59 11:59 Intake Total 2727 / 2727 2785 / 2785 2836 / 2836 Output Total 2300 / 2300 2250 / 2250 3140 / 3140 Balance 427 / 427 535 / 535 -304 / -304 - Physical Exam Oriented: Normal Eyes: Normal Ear: Normal Nose: Normal Throat: Normal Respiratory: Diminished, Rhonchi Cardiovascular: Normal : Normal Auscultation: Bowel Sounds: Normal Palpation: Normal Tenderness: Normal Skin: Normal Musculoskeletal: Normal Psychiatric: Normal Mood Description: Calm Affect: Normal Speech Pattern: Clear, Appropriate - Laboratory and Diagnostics Result Diagrams: 06/18/22 05:06 06/18/22 05:06 Labs: 06/13/22 18:05 Sputum - Expectorated Sputum Sputum Culture - Final Streptococcus Pneumoniae 06/13/22 18:05 Sputum - Expectorated Sputum - Final 06/13/22 17:54 Blood Blood Culture - Preliminary 06/13/22 17:30 Blood Blood Culture - Preliminary Laboratory WBC 8.8 X10^3/uL (3.6-10.0) 06/18/22 05:06 RBC 3.72 X10^6/uL (4.7-6.0) L 06/18/22 05:06 Hgb 10.7 g/dL (13.5-18.0) L 06/18/22 05:06 Hct 31.9 % (42.0-54.0) L 06/18/22 05:06 MCV 85.8 fL (80.0-100.0) 06/18/22 05:06 MCH 28.9 pg (27.0-34.0) 06/18/22 05:06 MCHC 33.6 g/dL (33.0-35.0) 06/18/22 05:06 RDW 17.4 % (11.6-16.5) H 06/18/22 05:06 Plt Count 207 X10^3/uL (150.0-450.0) 06/18/22 05:06 MPV 7.8 fL (7.4-11.0) 06/18/22 05:06 Neut % (Auto) 83.3 % (42.0-75.0) H 06/18/22 05:06 Lymph % (Auto) 9.4 % (21.0-51.0) L 06/18/22 05:06 [place] % (Auto) 7.2 % (0.0-13.0) 06/18/22 05:06 Eos % (Auto) 0.0 % (0.9-2.9) L 06/18/22 05:06 Baso % (Auto) 0.1 % (0.2-1.0) L 06/18/22 05:06 Neut # (Auto) 7.3 x10^3/uL (2.2-4.8) H 06/18/22 05:06 Lymph # (Auto) 0.8 X10^3/uL (1.3-2.9) L 06/18/22 05:06 [place] # (Auto) 0.6 x10^3/uL (0.3-0.8) 06/18/22 05:06 Eos # (Auto) 0.0 x10^3/uL (0.0-0.2) 06/18/22 05:06 Baso # (Auto) 0.0 X10^3/uL (0.0-0.1) 06/18/22 05:06 Absolute Nucleated RBC 0.1 /100WBC 06/18/22 05:06 D-Dimer 1.90 ug/ml (0.0-0.57) H 06/13/22 17:30 Sample Site Rr 06/14/22 05:00 ABG pH 7.460 (7.35-7.45) H 06/14/22 05:00 ABG pCO2 50.0 mmHg (35.0-45.0) H 06/14/22 05:00 ABG pO2 65.0 mmHg (80.0-100.0) L 06/14/22 05:00 ABG HCO3 35.6 mmol/L (22-26) H* 06/14/22 05:00 ABG O2 Saturation 94.0 % (90-100) 06/14/22 05:00 ABG Base Excess 10.2 mmol/L (-2.0-2.0) H 06/14/22 05:00 Anatoly Test Pos 06/14/22 05:00 A-a Gradient 129.0 mmHg 06/14/22 05:00 FiO2 36.0 06/14/22 05:00 Blood Gas Comments [facility] 06/14/22 05:00 Sodium 139 mmol/L (136-145) 06/18/22 05:06 Corrected Sodium 139 mmol/L (136-145) 06/18/22 05:06 Potassium 3.7 mmol/L (3.5-5.1) 06/18/22 05:06 Chloride 99 mmol/L (98-107) 06/18/22 05:06 Carbon Dioxide 30.9 mmol/L (21-32) 06/18/22 05:06 BUN 32 mg/dL (7-18) H 06/18/22 05:06 Creatinine 1.04 mg/dL (0.70-1.30) 06/18/22 05:06 Est GFR (MDRD) Af Amer > 60 (>60) 06/18/22 05:06 Est GFR (MDRD) Non-Af > 60 (>60) 06/18/22 05:06 Glucose 120 mg/dL (65-99) H 06/18/22 05:06 Calcium 7.7 mg/dL (8.5-10.1) L 06/18/22 05:06 Corrected Calcium 8.5 mg/dL (8.5-10.1) 06/18/22 05:06 Magnesium 2.2 mg/dL (1.7-2.9) 06/17/22 05:20 Total Bilirubin 0.80 mg/dL (0.2-1.0) 06/18/22 05:06 AST 36 Units/L (15-37) 06/18/22 05:06 ALT 28 Units/L (12-78) 06/18/22 05:06 Alkaline Phosphatase 40 Units/L (46-116) L 06/18/22 05:06 Creatine Kinase 73 Units/L (39-308) 06/13/22 17:54 Troponin I High Sens 16.9 ng/L (4.0-60.0) 06/13/22 17:54 C-Reactive Protein 30.10 mg/L (0-3.0) H 06/13/22 17:54 B-Natriuretic Peptide 429 pg/mL (0-79) H 06/14/22 05:51 Total Protein 6.1 g/dL (6.4-8.2) L 06/18/22 05:06 Albumin 3.0 g/dL (3.4-5.0) L 06/18/22 05:06 Globulin 3.1 g/dL (2.5-4.5) 06/18/22 05:06 Albumin/Globulin Ratio 1.0 Ratio (1.1-2.1) L 06/18/22 05:06 SARS-CoV-2 (PCR) Negative (NEGATIVE) 06/13/22 17:59 Influenza Type A (PCR) Negative (NEGATIVE) 06/13/22 17:59 Influenza Type B (PCR) Negative (NEGATIVE) 06/13/22 17:59 RSV (PCR) Negative (NEGATIVE) 06/13/22 17:59 - Plan (1) Pneumonia Status: Acute Qualifiers: Pneumonia type: due to unspecified organism Laterality: bilateral Lung location: unspecified part of lung Qualified Code(s): J18.9 - Pneumonia, unspecified organism Plan: 1/2NS AT 75 ML/HR, LEVAQUIN 500MG IV DAILY, FORTAZ 1G IV Q8H, SOLU-MEDROL 80MG IV Q8H, XOPENEX NEBS Q6H, PULMICORT NEBS BID, TUSSIONEX 5ML PO Q12H, LOVENOX 40MG SC DAILY, ROBITUSSIN DM 10ML PO QID, AND PROBIOTICS. RESUME HOME MEDS (2) Respiratory failure with hypoxia and hypercapnia Status: Acute Qualifiers: Chronicity: acute Qualified Code(s): J96.01 - Acute respiratory failure with hypoxia; J96.02 - Acute respiratory failure with hypercapnia (3) Hypokalemia Status: Acute (4) HTN (hypertension) Status: Chronic Qualifiers: Hypertension type: primary hypertension Qualified Code(s): I10 - Essential (primary) hypertension (5) COPD (chronic obstructive pulmonary disease) Status: Chronic Qualifiers: COPD type: unspecified COPD Qualified Code(s): J44.9 - Chronic obstructive pulmonary disease, unspecified
--- NOTE | 2022-06-18 12:56 | PCM.PROG ---
Progress Note - Progress Note for Day of Date of Exam: 06/17/22 - Subjective Subjective: WAS ADMITTED FOR TREATMENT OF BILATERAL LOWER PLBE PNEUMONIA, RESPIRATORY FAILURE WITH HYPOXIA AND HYPRECAPNIA, HYPOKALEMIA, HTN, AND COPD. TODAY, HE IS ALERT, LYING IN BED ON MORNING ROUNDS. HE CONTINUES WITH COMPLAINTS OF A COUGH, SHORTNESS OF BREATH, AND GENERALIZED WEAKNESS. STAFF REPORTS THAT HE HAS HAD INCREASED AGITATION THROUGHOUT THE NIGHT. ON EXAMINATION, HEART IS REGULAR IN RATE AND RHYTHM. BILATERAL LUNGS ARE NOTED WITH RHONCHI THROUGHOUT. ABDOMEN IS ROUND, SOFT, AND NON-TENDER WITH NORMAL BOWEL SOUNDS NOTED IN ALL QUADRANTS. TRACE LOWER EXTREMITY EDEMA NOTED. HIS VITALS THIS MORNING ARE: 98.3-94-20-90%-167/98. HE IS CURRENTLY UTILIZING OXYGEN VIA NASAL CANNULA AT 3-4 LPM. OXYGEN SATURATIONS HAVE BEEN IN THE 90s THROUGHOUT THE NIGHT. LABS WERE OBTAINED. WBC 7.4, RBC 4.06, HGB 11.6, HCT 34.9, SODIUM 138, POTASSIUM 3.8, CHLORIDE 98, BUN 25, CREATININE 0.97, GLUCOSE 141, CALCIUM 7.8, AST 24, ALT 20, ALK PHOS 46, TOTAL PROTEIN 6.4, ALBUMIN 2.9. SPUTUM CULTURE IS POSITIVE FOR GROWTH OF STREPTOCOCCUS PNEUMONIAE. CHEST XRAY REVEALED: Heart is enlarged. No definite congestive heart failure is noted on today's examination. The ihsan are normal. The aorta is calcified. Lungs are generally hyperinflated. Bilateral diffuse interstitial lung changes are present and not significantly different from the prior examination. There are some patchy infiltrates also unchanged from the prior examination. Bony thorax is unremarkable. HE IS CURRENTLY RECEIVING 1/2NS AT 75 ML/HR, LEVAQUIN 500MG IV DAILY, FORTAZ 1G IV Q8H, SOLU-MEDROL 80MG IV Q8H, XOPENEX NEBS Q6H, PULMICORT NEBS BID, TUSSIONEX 5ML PO Q12H, LOVENOX 40MG SC DAILY, ROBITUSSIN DM 10ML PO QID, PROBIOTICS, AND THE POTASSIUM AND MAGNESIUM PROTOCOLS. HIS HOME MEDICATIONS WERE ALSO RESUMED. TODAY, WE WILL ADD SEROQUEL 25MG PO HS. OTHERWISE, WE WILL FOLLOW-UP WITH AM LABS AND CONTINUE TO MONITOR. TIME SPENT ON CLINICAL ASSESSMENT, REVIWING LABS AND IMAGING, DECISION MAKING, AND DOCUMENTATION GREATER THAN 45 MINUTES. - Past Medical Family Social History Past Med/Fam/Surg Hx: No changes since H&P Allergies: Allergies No Known Drug Allergies Allergy (Verified 06/13/22 17:39) - Review of Systems ROS: No change since H&P - Vital Signs and I&O's Vital Signs: Temperature 97.5 F Pulse Rate [Left Brachial] 75 Pulse Rate 54 Respiratory Rate 30 Blood Pressure [Left Arm] 165/71 Blood Pressure [Right Arm] 160/92 Blood Pressure 100/55 O2 Sat by Pulse Oximetry 91 Intake and Output: Intake & Output 06/16/22 06/17/22 06/18/22 06/19/22 11:59 11:59 11:59 11:59 Intake Total 2727 / 2727 2785 / 2785 2836 / 2836 Output Total 2300 / 2300 2250 / 2250 3140 / 3140 Balance 427 / 427 535 / 535 -304 / -304 - Physical Exam Oriented: Normal Eyes: Normal Ear: Normal Nose: Normal Throat: Normal Respiratory: Diminished, Rhonchi Cardiovascular: Normal : Normal Auscultation: Bowel Sounds: Normal Palpation: Normal Tenderness: Normal Skin: Normal Musculoskeletal: Normal Psychiatric: Normal Mood Description: Calm Affect: Normal Speech Pattern: Clear, Appropriate - Laboratory and Diagnostics Result Diagrams: 06/18/22 05:06 06/18/22 05:06 Labs: 06/13/22 18:05 Sputum - Expectorated Sputum Sputum Culture - Final Streptococcus Pneumoniae 06/13/22 18:05 Sputum - Expectorated Sputum - Final 06/13/22 17:54 Blood Blood Culture - Preliminary 06/13/22 17:30 Blood Blood Culture - Preliminary Laboratory WBC 8.8 X10^3/uL (3.6-10.0) 06/18/22 05:06 RBC 3.72 X10^6/uL (4.7-6.0) L 06/18/22 05:06 Hgb 10.7 g/dL (13.5-18.0) L 06/18/22 05:06 Hct 31.9 % (42.0-54.0) L 06/18/22 05:06 MCV 85.8 fL (80.0-100.0) 06/18/22 05:06 MCH 28.9 pg (27.0-34.0) 06/18/22 05:06 MCHC 33.6 g/dL (33.0-35.0) 06/18/22 05:06 RDW 17.4 % (11.6-16.5) H 06/18/22 05:06 Plt Count 207 X10^3/uL (150.0-450.0) 06/18/22 05:06 MPV 7.8 fL (7.4-11.0) 06/18/22 05:06 Neut % (Auto) 83.3 % (42.0-75.0) H 06/18/22 05:06 Lymph % (Auto) 9.4 % (21.0-51.0) L 06/18/22 05:06 [place] % (Auto) 7.2 % (0.0-13.0) 06/18/22 05:06 Eos % (Auto) 0.0 % (0.9-2.9) L 06/18/22 05:06 Baso % (Auto) 0.1 % (0.2-1.0) L 06/18/22 05:06 Neut # (Auto) 7.3 x10^3/uL (2.2-4.8) H 06/18/22 05:06 Lymph # (Auto) 0.8 X10^3/uL (1.3-2.9) L 06/18/22 05:06 [place] # (Auto) 0.6 x10^3/uL (0.3-0.8) 06/18/22 05:06 Eos # (Auto) 0.0 x10^3/uL (0.0-0.2) 06/18/22 05:06 Baso # (Auto) 0.0 X10^3/uL (0.0-0.1) 06/18/22 05:06 Absolute Nucleated RBC 0.1 /100WBC 06/18/22 05:06 D-Dimer 1.90 ug/ml (0.0-0.57) H 06/13/22 17:30 Sample Site Rr 06/14/22 05:00 ABG pH 7.460 (7.35-7.45) H 06/14/22 05:00 ABG pCO2 50.0 mmHg (35.0-45.0) H 06/14/22 05:00 ABG pO2 65.0 mmHg (80.0-100.0) L 06/14/22 05:00 ABG HCO3 35.6 mmol/L (22-26) H* 06/14/22 05:00 ABG O2 Saturation 94.0 % (90-100) 06/14/22 05:00 ABG Base Excess 10.2 mmol/L (-2.0-2.0) H 06/14/22 05:00 Anatoly Test Pos 06/14/22 05:00 A-a Gradient 129.0 mmHg 06/14/22 05:00 FiO2 36.0 06/14/22 05:00 Blood Gas Comments [facility] 06/14/22 05:00 Sodium 139 mmol/L (136-145) 06/18/22 05:06 Corrected Sodium 139 mmol/L (136-145) 06/18/22 05:06 Potassium 3.7 mmol/L (3.5-5.1) 06/18/22 05:06 Chloride 99 mmol/L (98-107) 06/18/22 05:06 Carbon Dioxide 30.9 mmol/L (21-32) 06/18/22 05:06 BUN 32 mg/dL (7-18) H 06/18/22 05:06 Creatinine 1.04 mg/dL (0.70-1.30) 06/18/22 05:06 Est GFR (MDRD) Af Amer > 60 (>60) 06/18/22 05:06 Est GFR (MDRD) Non-Af > 60 (>60) 06/18/22 05:06 Glucose 120 mg/dL (65-99) H 06/18/22 05:06 Calcium 7.7 mg/dL (8.5-10.1) L 06/18/22 05:06 Corrected Calcium 8.5 mg/dL (8.5-10.1) 06/18/22 05:06 Magnesium 2.2 mg/dL (1.7-2.9) 06/17/22 05:20 Total Bilirubin 0.80 mg/dL (0.2-1.0) 06/18/22 05:06 AST 36 Units/L (15-37) 06/18/22 05:06 ALT 28 Units/L (12-78) 06/18/22 05:06 Alkaline Phosphatase 40 Units/L (46-116) L 06/18/22 05:06 Creatine Kinase 73 Units/L (39-308) 06/13/22 17:54 Troponin I High Sens 16.9 ng/L (4.0-60.0) 06/13/22 17:54 C-Reactive Protein 30.10 mg/L (0-3.0) H 06/13/22 17:54 B-Natriuretic Peptide 429 pg/mL (0-79) H 06/14/22 05:51 Total Protein 6.1 g/dL (6.4-8.2) L 06/18/22 05:06 Albumin 3.0 g/dL (3.4-5.0) L 06/18/22 05:06 Globulin 3.1 g/dL (2.5-4.5) 06/18/22 05:06 Albumin/Globulin Ratio 1.0 Ratio (1.1-2.1) L 06/18/22 05:06 SARS-CoV-2 (PCR) Negative (NEGATIVE) 06/13/22 17:59 Influenza Type A (PCR) Negative (NEGATIVE) 06/13/22 17:59 Influenza Type B (PCR) Negative (NEGATIVE) 06/13/22 17:59 RSV (PCR) Negative (NEGATIVE) 06/13/22 17:59 - Plan (1) Pneumonia Status: Acute Qualifiers: Pneumonia type: due to unspecified organism Laterality: bilateral Lung location: unspecified part of lung Qualified Code(s): J18.9 - Pneumonia, unspecified organism Plan: 1/2NS AT 75 ML/HR, LEVAQUIN 500MG IV DAILY, FORTAZ 1G IV Q8H, SOLU-MEDROL 80MG IV Q8H, XOPENEX NEBS Q6H, PULMICORT NEBS BID, TUSSIONEX 5ML PO Q12H, LOVENOX 40MG SC DAILY, ROBITUSSIN DM 10ML PO QID, SEROQUEL 25MG PO HS, PROBIOTICS, POTASSIUM AND MAGNESIUM PROTOCOLS. RESUME HOME MEDS (2) Respiratory failure with hypoxia and hypercapnia Status: Acute Qualifiers: Chronicity: acute Qualified Code(s): J96.01 - Acute respiratory failure with hypoxia; J96.02 - Acute respiratory failure with hypercapnia (3) Hypokalemia Status: Acute (4) HTN (hypertension) Status: Chronic Qualifiers: Hypertension type: primary hypertension Qualified Code(s): I10 - Essential (primary) hypertension (5) COPD (chronic obstructive pulmonary disease) Status: Chronic Qualifiers: COPD type: unspecified COPD Qualified Code(s): J44.9 - Chronic obstructive pulmonary disease, unspecified
--- NOTE | 2022-06-18 13:19 | PCM.PROG ---
Progress Note - Progress Note for Day of Date of Exam: 06/18/22 - Subjective Subjective: WAS ADMITTED FOR TREATMENT OF BILATERAL LOWER PLBE PNEUMONIA, RESPIRATORY FAILURE WITH HYPOXIA AND HYPRECAPNIA, HYPOKALEMIA, HTN, AND COPD. TODAY, HE IS ALERT, LYING IN BED ON MORNING ROUNDS. HE CONTINUES WITH COMPLAINTS OF A COUGH, SHORTNESS OF BREATH, AND GENERALIZED WEAKNESS. STAFF REPORTS THAT HE HAS HAD INCREASED AGITATION THROUGHOUT THE NIGHT DESPITE ADDING SEROQUEL. THEY ALSO REPORT THAT HE APPEARS TO HAVE RESTLESS LEGS, HE IS CONSTANTLY MOVING THEM WHILE LYING IN BED. ON EXAMINATION, HEART IS REGULAR IN RATE AND RHYTHM. BILATERAL LUNGS ARE NOTED WITH RHONCHI THROUGHOUT. ABDOMEN IS ROUND, SOFT, AND NON-TENDER WITH NORMAL BOWEL SOUNDS NOTED IN ALL QUADRANTS. TRACE LOWER EXTREMITY EDEMA NOTED. HIS VITALS THIS MORNING ARE: 98.2-89-18-96%-139/92. HE IS CURRENTLY UTILIZING OXYGEN VIA NASAL CANNULA AT 3-4 LPM. OXYGEN SATURATIONS HAVE BEEN IN THE 90s THROUGHOUT THE NIGHT. LABS WERE OBTAINED. WBC 8.8, RBC 3.72, HGB 10.7, HCT 31.9, SODIUM 139, POTASSIUM 3.7, BUN 32, CREATININE 1.04, GLUCOSE 120, CALCIUM 7.7, AST 36, ALT 28, ALK PHOS 40, TOTAL PROTEIN 6.1, ALBUMIN 3.0. SPUTUM CULTURE IS POSITIVE FOR GROWTH OF STREPTOCOCCUS PNEUMONIAE. CHEST XRAY REVEALED: No change cardiomegaly without congestive heart failure. No change hyperinflation with diffuse interstitial l valentin changes. No change scattered patchy infiltrates. HE IS CURRENTLY RECEIVING 1/2NS AT 75 ML/HR, LEVAQUIN 500MG IV DAILY, FORTAZ 1G IV Q8H, SOLU-MEDROL 80MG IV Q8H, XOPENEX NEBS Q6H, PULMICORT NEBS BID, TUSSIONEX 5ML PO Q12H, LOVENOX 40MG SC DAILY, ROBITUSSIN DM 10ML PO QID, PROBIOTICS, AND THE POTASSIUM AND MAGNESIUM PROTOCOLS. HIS HOME MEDICATIONS WERE ALSO RESUMED. TODAY, WE WILL INCREASE SEROQUEL TO 25MG PO BID. WE WILL INCREASE THE HOME MEDICATION OF REQUIP THAT HE IS ON TO 2MG TID. OTHERWISE, WE WILL FOLLOW-UP WITH AM LABS AND CONTINUE TO MONITOR. TIME SPENT ON CLINICAL ASSESSMENT, REVIWING LABS AND IMAGING, DECISION MAKING, AND DOCUMENTATION GREATER THAN 45 MINUTES. - Past Medical Family Social History Past Med/Fam/Surg Hx: No changes since H&P Allergies: Allergies No Known Drug Allergies Allergy (Verified 06/13/22 17:39) - Review of Systems ROS: No change since H&P - Vital Signs and I&O's Vital Signs: Temperature 97.5 F Pulse Rate [Left Brachial] 75 Pulse Rate 54 Respiratory Rate 30 Blood Pressure [Left Arm] 165/71 Blood Pressure [Right Arm] 160/92 Blood Pressure 100/55 O2 Sat by Pulse Oximetry 91 Intake and Output: Intake & Output 06/16/22 06/17/22 06/18/22 06/19/22 11:59 11:59 11:59 11:59 Intake Total 2727 / 2727 2785 / 2785 2836 / 2836 Output Total 2300 / 2300 2250 / 2250 3140 / 3140 Balance 427 / 427 535 / 535 -304 / -304 - Physical Exam Oriented: Normal Eyes: Normal Ear: Normal Nose: Normal Throat: Normal Respiratory: Diminished, Rhonchi Cardiovascular: Normal : Normal Auscultation: Bowel Sounds: Normal Palpation: Normal Tenderness: Normal Skin: Normal Musculoskeletal: Normal Psychiatric: Normal Mood Description: Calm Affect: Normal Speech Pattern: Clear, Appropriate - Laboratory and Diagnostics Result Diagrams: 06/18/22 05:06 06/18/22 05:06 Labs: 06/13/22 18:05 Sputum - Expectorated Sputum Sputum Culture - Final Streptococcus Pneumoniae 06/13/22 18:05 Sputum - Expectorated Sputum - Final 06/13/22 17:54 Blood Blood Culture - Preliminary 06/13/22 17:30 Blood Blood Culture - Preliminary Laboratory WBC 8.8 X10^3/uL (3.6-10.0) 06/18/22 05:06 RBC 3.72 X10^6/uL (4.7-6.0) L 06/18/22 05:06 Hgb 10.7 g/dL (13.5-18.0) L 06/18/22 05:06 Hct 31.9 % (42.0-54.0) L 06/18/22 05:06 MCV 85.8 fL (80.0-100.0) 06/18/22 05:06 MCH 28.9 pg (27.0-34.0) 06/18/22 05:06 MCHC 33.6 g/dL (33.0-35.0) 06/18/22 05:06 RDW 17.4 % (11.6-16.5) H 06/18/22 05:06 Plt Count 207 X10^3/uL (150.0-450.0) 06/18/22 05:06 MPV 7.8 fL (7.4-11.0) 06/18/22 05:06 Neut % (Auto) 83.3 % (42.0-75.0) H 06/18/22 05:06 Lymph % (Auto) 9.4 % (21.0-51.0) L 06/18/22 05:06 [place] % (Auto) 7.2 % (0.0-13.0) 06/18/22 05:06 Eos % (Auto) 0.0 % (0.9-2.9) L 06/18/22 05:06 Baso % (Auto) 0.1 % (0.2-1.0) L 06/18/22 05:06 Neut # (Auto) 7.3 x10^3/uL (2.2-4.8) H 06/18/22 05:06 Lymph # (Auto) 0.8 X10^3/uL (1.3-2.9) L 06/18/22 05:06 [place] # (Auto) 0.6 x10^3/uL (0.3-0.8) 06/18/22 05:06 Eos # (Auto) 0.0 x10^3/uL (0.0-0.2) 06/18/22 05:06 Baso # (Auto) 0.0 X10^3/uL (0.0-0.1) 06/18/22 05:06 Absolute Nucleated RBC 0.1 /100WBC 06/18/22 05:06 D-Dimer 1.90 ug/ml (0.0-0.57) H 06/13/22 17:30 Sample Site Rr 06/14/22 05:00 ABG pH 7.460 (7.35-7.45) H 06/14/22 05:00 ABG pCO2 50.0 mmHg (35.0-45.0) H 06/14/22 05:00 ABG pO2 65.0 mmHg (80.0-100.0) L 06/14/22 05:00 ABG HCO3 35.6 mmol/L (22-26) H* 06/14/22 05:00 ABG O2 Saturation 94.0 % (90-100) 06/14/22 05:00 ABG Base Excess 10.2 mmol/L (-2.0-2.0) H 06/14/22 05:00 Anatoly Test Pos 06/14/22 05:00 A-a Gradient 129.0 mmHg 06/14/22 05:00 FiO2 36.0 06/14/22 05:00 Blood Gas Comments [facility] sw 06/14/22 05:00 Sodium 139 mmol/L (136-145) 06/18/22 05:06 Corrected Sodium 139 mmol/L (136-145) 06/18/22 05:06 Potassium 3.7 mmol/L (3.5-5.1) 06/18/22 05:06 Chloride 99 mmol/L (98-107) 06/18/22 05:06 Carbon Dioxide 30.9 mmol/L (21-32) 06/18/22 05:06 BUN 32 mg/dL (7-18) H 06/18/22 05:06 Creatinine 1.04 mg/dL (0.70-1.30) 06/18/22 05:06 Est GFR (MDRD) Af Amer > 60 (>60) 06/18/22 05:06 Est GFR (MDRD) Non-Af > 60 (>60) 06/18/22 05:06 Glucose 120 mg/dL (65-99) H 06/18/22 05:06 Calcium 7.7 mg/dL (8.5-10.1) L 06/18/22 05:06 Corrected Calcium 8.5 mg/dL (8.5-10.1) 06/18/22 05:06 Magnesium 2.2 mg/dL (1.7-2.9) 06/17/22 05:20 Total Bilirubin 0.80 mg/dL (0.2-1.0) 06/18/22 05:06 AST 36 Units/L (15-37) 06/18/22 05:06 ALT 28 Units/L (12-78) 06/18/22 05:06 Alkaline Phosphatase 40 Units/L (46-116) L 06/18/22 05:06 Creatine Kinase 73 Units/L (39-308) 06/13/22 17:54 Troponin I High Sens 16.9 ng/L (4.0-60.0) 06/13/22 17:54 C-Reactive Protein 30.10 mg/L (0-3.0) H 06/13/22 17:54 B-Natriuretic Peptide 429 pg/mL (0-79) H 06/14/22 05:51 Total Protein 6.1 g/dL (6.4-8.2) L 06/18/22 05:06 Albumin 3.0 g/dL (3.4-5.0) L 06/18/22 05:06 Globulin 3.1 g/dL (2.5-4.5) 06/18/22 05:06 Albumin/Globulin Ratio 1.0 Ratio (1.1-2.1) L 06/18/22 05:06 SARS-CoV-2 (PCR) Negative (NEGATIVE) 06/13/22 17:59 Influenza Type A (PCR) Negative (NEGATIVE) 06/13/22 17:59 Influenza Type B (PCR) Negative (NEGATIVE) 06/13/22 17:59 RSV (PCR) Negative (NEGATIVE) 06/13/22 17:59 - Plan (1) Pneumonia Status: Acute Qualifiers: Pneumonia type: due to unspecified organism Laterality: bilateral Lung location: unspecified part of lung Qualified Code(s): J18.9 - Pneumonia, unspecified organism Plan: 1/2NS AT 75 ML/HR, LEVAQUIN 500MG IV DAILY, FORTAZ 1G IV Q8H, SOLU-MEDROL 80MG IV Q8H, XOPENEX NEBS Q6H, PULMICORT NEBS BID, TUSSIONEX 5ML PO Q12H, LOVENOX 40MG SC DAILY, ROBITUSSIN DM 10ML PO QID, SEROQUEL 25MG PO BID, PROBIOTICS, POTASSIUM AND MAGNESIUM PROTOCOLS. RESUME HOME MEDS (2) Respiratory failure with hypoxia and hypercapnia Status: Acute Qualifiers: Chronicity: acute Qualified Code(s): J96.01 - Acute respiratory failure with hypoxia; J96.02 - Acute respiratory failure with hypercapnia (3) Hypokalemia Status: Acute (4) HTN (hypertension) Status: Chronic Qualifiers: Hypertension type: primary hypertension Qualified Code(s): I10 - Essential (primary) hypertension (5) COPD (chronic obstructive pulmonary disease) Status: Chronic Qualifiers: COPD type: unspecified COPD Qualified Code(s): J44.9 - Chronic obstructive pulmonary disease, unspecified
[2022-06-18] MEDS ORDERED: NS 1/2 1,000 ML IV 1,000 ML IV ONE (15:42)
[2022-06-18] MEDS: MELATONIN PO PRN (21:50)
[2022-06-18] MEDS: CRESTOR TAB 10 MG PO SCH (21:52)
[2022-06-18] MEDS: FLOMAX PO SCH (21:52)
[2022-06-18] MEDS: NEURONTIN CAP 300 MG PO SCH (21:52)
[2022-06-19] MEDS: XOPENEX 1.25 MG/3 ML NEBULE NEB SCH ×5 (00:28→18:24)
[2022-06-19] MEDS: NS 1/2 1,000 ML IV 1,000 ML IV SCH ×3 (00:50→20:32)
[2022-06-19] MEDS ORDERED: NS 1/2 1,000 ML IV 1,000 ML IV ONE ×2 (05:11→20:11)
[2022-06-19] MEDS: REQUIP PO SCH ×3 (05:53→21:07)
[2022-06-19] MEDS: FORTAZ or TAZICEF VIAL INJ IVP SCH ×3 (05:53→21:07)
[2022-06-19] MEDS: SOLU-Medrol 40 MG VIAL IVP SCH ×3 (05:54→21:08)
[2022-06-19 06:04] LABS: BASOPHILS % (AUTO) 0.1 % (0.2-1.0); HEMOGLOBIN 10.4 g/dL (13.5-18.0); LYMPHOCYTES # (AUTO) 0.6 X10^3/uL (1.3-2.9); LYMPHOCYTES % (AUTO) 9.3 % (21.0-51.0); MEAN CORPUSCULAR HEMOGLOBIN 28.7 pg (27.0-34.0); MEAN CORPUSCULAR HGB CONC 33.5 g/dL (33.0-35.0); MEAN CORPUSCULAR VOLUME 85.6 fL (80.0-100.0); MEAN PLATELET VOLUME 7.9 fL (7.4-11.0); MONOCYTES # (AUTO) 0.4 x10^3/uL (0.3-0.8); MONOCYTES % (AUTO) 6.1 % (0.0-13.0); NEUTROPHILS # (AUTO) 5.3 x10^3/uL (2.2-4.8); NEUTROPHILS % (AUTO) 84.5 % (42.0-75.0); RED BLOOD COUNT 3.63 X10^6/uL (4.7-6.0); RED CELL DISTRIBUTION WIDTH 17.8 % (11.6-16.5); WHITE BLOOD COUNT 6.2 X10^3/uL (3.6-10.0)
--- NOTE | 2022-06-19 06:10 | RAD ---
HISTORYShortness of breath, follow-up pneumoniaSTUDYChest AP [id number]/23/2022FINDINGSThe heart remains mildly enlarged. Aorta is calcified. Ledy are normal. Lungs are generally hyperinflated. Diffuse bilateral interstitial infiltrates are present and unchanged. Patchy areas of airspace disease are present and unchanged. Bony thorax is unremarkable.IMPRESSIONNo significant change from the prior examinationElectronically signed by: KOREY NICOLE (Jun 19, 2022 06:09:13)
[2022-06-19 06:52] LABS: ALANINE AMINOTRANSFERASE 29 Units/L (12-78); ALBUMIN 2.5 g/dL (3.4-5.0); ALKALINE PHOSPHATASE 35 Units/L (46-116); ASPARTATE AMINO TRANSFERASE 32 Units/L (15-37); BLOOD UREA NITROGEN 27 mg/dL (7-18); CALCIUM 7.3 mg/dL (8.5-10.1); CARBON DIOXIDE 34.4 mmol/L (21-32); CHLORIDE 102 mmol/L (98-107); COR CA(FOR HYPOALB) 8.5 mg/dL (8.5-10.1); COR NA(FOR HYPERGLY) 143 mmol/L (136-145); SODIUM 142 mmol/L (136-145); TOTAL PROTEIN 5.4 g/dL (6.4-8.2); eGFR NON BLACK RACES > 60 (>60)
[2022-06-19] MEDS: PULMICORT NEB TX 0.5 MG NEB SCH ×2 (08:40→20:32)
[2022-06-19] MEDS: ROBITUSSIN DM PO SCH ×4 (10:05→20:48)
[2022-06-19] MEDS: SEROquel TAB 25 mg PO SCH ×2 (10:06→20:46)
[2022-06-19] MEDS: VSL#3 PO SCH (10:06)
[2022-06-19] MEDS: ASPIRIN EC 81 MG PO SCH (10:06)
[2022-06-19] MEDS: CARDIZEM CD 120 MG 24-HR PO SCH (10:06)
[2022-06-19] MEDS: ANTIVERT TAB 25 MG PO SCH ×2 (10:06→20:45)
[2022-06-19] MEDS: PROTONIX TAB 40 MG PO SCH (10:07)
[2022-06-19] MEDS: TOPROL XL PO SCH (10:07)
[2022-06-19] MEDS: LEVAQUIN PREMIX IV 500 MG 500 MG/100 ML BAG IV SCH (10:08)
[2022-06-19] MEDS: LOVENOX INJ 40 MG SYR SC SCH (10:08)
[2022-06-19] MEDS: LASIX PO SCH ×2 (11:30→17:21)
[2022-06-19] MEDS: FLOMAX PO SCH (20:45)
[2022-06-19] MEDS: COLACE CAP 100 MG PO SCH (20:45)
[2022-06-19] MEDS: CRESTOR TAB 10 MG PO SCH (20:45)
[2022-06-19] MEDS: NEURONTIN CAP 300 MG PO SCH (20:46)
[2022-06-19] MEDS: MELATONIN PO PRN (20:47)
[2022-06-19] MEDS: NORCO 5/325 MG TAB PO PRN (20:47)
[2022-06-19] MEDS: MILK OF MAGNESIA PO SCH (21:06)
[2022-06-20] MEDS: XOPENEX 1.25 MG/3 ML NEBULE NEB SCH ×4 (00:35→17:01)
[2022-06-20] MEDS ORDERED: NS 1/2 1,000 ML IV 1,000 ML IV ONE ×2 (02:27→17:24)
[2022-06-20] MEDS: NS 1/2 1,000 ML IV 1,000 ML IV SCH ×2 (03:13→17:39)
[2022-06-20] MEDS: FORTAZ or TAZICEF VIAL INJ IVP SCH ×3 (05:00→21:23)
[2022-06-20] MEDS: REQUIP PO SCH ×3 (05:01→21:19)
[2022-06-20] MEDS: SOLU-Medrol 40 MG VIAL IVP SCH ×3 (05:01→21:24)
[2022-06-20 06:19] LABS: BASOPHILS % (AUTO) 0.1 % (0.2-1.0); HEMATOCRIT 33.5 % (42.0-54.0); HEMOGLOBIN 11.1 g/dL (13.5-18.0); LYMPHOCYTES # (AUTO) 0.6 X10^3/uL (1.3-2.9); LYMPHOCYTES % (AUTO) 8.4 % (21.0-51.0); MEAN CORPUSCULAR HEMOGLOBIN 28.4 pg (27.0-34.0); MEAN CORPUSCULAR HGB CONC 33.1 g/dL (33.0-35.0); MEAN CORPUSCULAR VOLUME 85.6 fL (80.0-100.0); MEAN PLATELET VOLUME 7.9 fL (7.4-11.0); MONOCYTES # (AUTO) 0.4 x10^3/uL (0.3-0.8); MONOCYTES % (AUTO) 5.2 % (0.0-13.0); NEUTROPHILS # (AUTO) 6.1 x10^3/uL (2.2-4.8); NEUTROPHILS % (AUTO) 86.3 % (42.0-75.0); RED BLOOD COUNT 3.91 X10^6/uL (4.7-6.0); RED CELL DISTRIBUTION WIDTH 17.9 % (11.6-16.5); WHITE BLOOD COUNT 7.1 X10^3/uL (3.6-10.0)
[2022-06-20 06:35] LABS: ALANINE AMINOTRANSFERASE 39 Units/L (12-78); ALBUMIN 2.7 g/dL (3.4-5.0); ALKALINE PHOSPHATASE 38 Units/L (46-116); ASPARTATE AMINO TRANSFERASE 33 Units/L (15-37); BLOOD UREA NITROGEN 25 mg/dL (7-18); CALCIUM 7.4 mg/dL (8.5-10.1); CARBON DIOXIDE 33.5 mmol/L (21-32); CHLORIDE 99 mmol/L (98-107); COR CA(FOR HYPOALB) 8.4 mg/dL (8.5-10.1); COR NA(FOR HYPERGLY) 140 mmol/L (136-145); CREATININE 0.91 mg/dL (0.70-1.30); SODIUM 139 mmol/L (136-145); TOTAL PROTEIN 5.8 g/dL (6.4-8.2); eGFR NON BLACK RACES > 60 (>60)
--- NOTE | 2022-06-20 08:03 | RAD ---
HISTORYFollow-up pneumoniaSTUDYChest AP [id number]/24/2022FINDINGSHear t remains mildly enlarged. The aorta is calcified. Ledy are normal. Lungs are generally hyperinflated. Diffuse bilateral interstitial infiltrates are present and unchanged. Increasing right basilar alveolar infiltrate is identified. Small right pleural effusion is likely present. Bony thorax is unremarkable with the exception of left-sided glenohumeral joint degenerative joint disease.IMPRESSIONNo change hyperinflation with diffuse interstitial lung changesIncreasing right basilar alveolar infiltrate and now a small right pleural effusionElectronically signed by: KOREY NICOLE (Jun 20, 2022 08:01:13)
[2022-06-20] MEDS: LEVAQUIN PREMIX IV 500 MG 500 MG/100 ML BAG IV SCH (08:45)
[2022-06-20] MEDS: VSL#3 PO SCH (08:49)
[2022-06-20] MEDS: ANTIVERT TAB 25 MG PO SCH ×2 (08:50→21:19)
[2022-06-20] MEDS: PROTONIX TAB 40 MG PO SCH (08:50)
[2022-06-20] MEDS: ASPIRIN EC 81 MG PO SCH (08:50)
[2022-06-20] MEDS: LASIX PO SCH ×2 (08:50→16:58)
[2022-06-20] MEDS: SEROquel TAB 25 mg PO SCH ×2 (08:50→21:22)
[2022-06-20] MEDS: CARDIZEM CD 120 MG 24-HR PO SCH (08:50)
[2022-06-20] MEDS: TOPROL XL PO SCH (08:50)
[2022-06-20] MEDS: ROBITUSSIN DM PO SCH ×4 (08:51→21:23)
[2022-06-20] MEDS: K-DUR TAB 20 MEQ PO PRN (09:04)
[2022-06-20] MEDS: LOVENOX INJ 40 MG SYR SC SCH (09:13)
[2022-06-20] MEDS: PULMICORT NEB TX 0.5 MG NEB SCH ×2 (09:49→21:00)
--- NOTE | 2022-06-20 13:11 | PCM.PROG ---
Progress Note - Progress Note for Day of Date of Exam: 06/19/22 - Subjective Subjective: WAS ADMITTED FOR TREATMENT OF BILATERAL LOWER PLBE PNEUMONIA, RESPIRATORY FAILURE WITH HYPOXIA AND HYPRECAPNIA, HYPOKALEMIA, HTN, AND COPD. TODAY, HE IS ALERT, LYING IN BED ON MORNING ROUNDS. HE CONTINUES WITH COMPLAINTS OF A COUGH, SHORTNESS OF BREATH, AND GENERALIZED WEAKNESS. STAFF REPORTS THAT AGITATION HAS IMPROVED SINCE INCREASING THE SEROQUEL. ON EXAMINATION, HEART IS REGULAR IN RATE AND RHYTHM. BILATERAL LUNGS ARE NOTED WITH RHONCHI THROUGHOUT. ABDOMEN IS ROUND, SOFT, AND NON-TENDER WITH NORMAL BOWEL SOUNDS NOTED IN ALL QUADRANTS. TRACE LOWER EXTREMITY EDEMA NOTED. HIS VITALS THIS MORNING ARE: 98.5-87-22-94%-111/63. HE IS CURRENTLY UTILIZING OXYGEN VIA NASAL CANNULA AT 3-4 LPM. OXYGEN SATURATIONS HAVE BEEN IN THE 90s THROUGHOUT THE NIGHT. LABS WERE OBTAINED. WBC 6.2, RBC 3.63, HGB 10.4, HCT 31.0, SODIUM 142, POTASSIUM 2.9, CARBON DIOXIDE 34.4, BUN 27, CREATININE 0.90, GLUCOSE 158, CALCIUM 7.3, AST 32, ALT 29, ALK PHOS 35, TOTAL PROTEIN 5.4, ALBUMIN 2.5. SPUTUM CULTURE IS POSITIVE FOR GROWTH OF STREPTOCOCCUS PNEUMONIAE. CHEST XRAY REVEALED: The heart remains mildly enlarged. Aorta is calcified. Ledy are normal. Lungs are generally hyperinflated. Diffuse bilateral interstitial infiltrates are present and unchanged. Patchy areas of airspace disease are present and unchanged. Bony thorax is unremarkable. HE IS CURRENTLY RECEIVING 1/2NS AT 75 ML/HR, LEVAQUIN 500MG IV DAILY, FORTAZ 1G IV Q8H, SOLU-MEDROL 80MG IV Q8H, XOPENEX NEBS Q6H, PULMICORT NEBS BID, TUSSIONEX 5ML PO Q12H, LOVENOX 40MG SC DAILY, ROBITUSSIN DM 10ML PO QID, PROBIOTICS, SEROQUEL 25MG PO BID, AND THE POTASSIUM AND MAGNESIUM PROTOCOLS. HIS HOME MEDICATIONS WERE ALSO RESUMED. WE WILL CONTINUE WITH CURRENT PLAN OF CARE TODAY. PHYSICAL THERAPY WILL WORK WITH PATIENT. OTHERWISE, WE WILL FOLLOW-UP WITH AM LABS AND CONTINUE TO MONITOR. TIME SPENT ON CLINICAL ASSESSMENT, REVIWING LABS AND IMAGING, DECISION MAKING, AND DOCUMENTATION GREATER THAN 45 MINUTES. - Past Medical Family Social History Past Med/Fam/Surg Hx: No changes since H&P Allergies: Allergies No Known Drug Allergies Allergy (Verified 06/13/22 17:39) - Review of Systems ROS: No change since H&P - Vital Signs and I&O's Vital Signs: Temperature 97.6 F Pulse Rate [Left Brachial] 83 Pulse Rate 84 Respiratory Rate 20 Blood Pressure [Left Arm] 111/64 Blood Pressure [Right Arm] 160/92 Blood Pressure 100/55 O2 Sat by Pulse Oximetry 93 Intake and Output: Intake & Output 06/18/22 06/19/22 06/20/22 06/21/22 11:59 11:59 11:59 11:59 Intake Total 2836 / 2836 3376 / 3376 2891 / 2891 Output Total 3140 / 3140 4700 / 4700 4885 / 4885 Balance -304 / -304 -1324 / -1324 -1993 / - Physical Exam Oriented: Normal Eyes: Normal Ear: Normal Nose: Normal Throat: Normal Respiratory: Diminished, Rhonchi Cardiovascular: Normal : Normal Auscultation: Bowel Sounds: Normal Palpation: Normal Tenderness: Normal Skin: Normal Musculoskeletal: Normal Psychiatric: Normal Mood Description: Calm Affect: Normal Speech Pattern: Clear, Appropriate - Laboratory and Diagnostics Result Diagrams: 06/20/22 05:43 06/20/22 05:43 Labs: 06/13/22 17:54 Blood Blood Culture - Final 06/13/22 17:30 Blood Blood Culture - Final 06/13/22 18:05 Sputum - Expectorated Sputum Sputum Culture - Final Streptococcus Pneumoniae 06/13/22 18:05 Sputum - Expectorated Sputum - Final Laboratory WBC 7.1 X10^3/uL (3.6-10.0) 06/20/22 05:43 RBC 3.91 X10^6/uL (4.7-6.0) L 06/20/22 05:43 Hgb 11.1 g/dL (13.5-18.0) L 06/20/22 05:43 Hct 33.5 % (42.0-54.0) L 06/20/22 05:43 MCV 85.6 fL (80.0-100.0) 06/20/22 05:43 MCH 28.4 pg (27.0-34.0) 06/20/22 05:43 MCHC 33.1 g/dL (33.0-35.0) 06/20/22 05:43 RDW 17.9 % (11.6-16.5) H 06/20/22 05:43 Plt Count 207 X10^3/uL (150.0-450.0) 06/20/22 05:43 MPV 7.9 fL (7.4-11.0) 06/20/22 05:43 Neut % (Auto) 86.3 % (42.0-75.0) H 06/20/22 05:43 Lymph % (Auto) 8.4 % (21.0-51.0) L 06/20/22 05:43 [place] % (Auto) 5.2 % (0.0-13.0) 06/20/22 05:43 Eos % (Auto) 0.0 % (0.9-2.9) L 06/20/22 05:43 Baso % (Auto) 0.1 % (0.2-1.0) L 06/20/22 05:43 Neut # (Auto) 6.1 x10^3/uL (2.2-4.8) H 06/20/22 05:43 Lymph # (Auto) 0.6 X10^3/uL (1.3-2.9) L 06/20/22 05:43 [place] # (Auto) 0.4 x10^3/uL (0.3-0.8) 06/20/22 05:43 Eos # (Auto) 0.0 x10^3/uL (0.0-0.2) 06/20/22 05:43 Baso # (Auto) 0.0 X10^3/uL (0.0-0.1) 06/20/22 05:43 Absolute Nucleated RBC 0.1 /100WBC 06/20/22 05:43 D-Dimer 1.90 ug/ml (0.0-0.57) H 06/13/22 17:30 Sample Site Rr 06/14/22 05:00 ABG pH 7.460 (7.35-7.45) H 06/14/22 05:00 ABG pCO2 50.0 mmHg (35.0-45.0) H 06/14/22 05:00 ABG pO2 65.0 mmHg (80.0-100.0) L 06/14/22 05:00 ABG HCO3 35.6 mmol/L (22-26) H* 06/14/22 05:00 ABG O2 Saturation 94.0 % (90-100) 06/14/22 05:00 ABG Base Excess 10.2 mmol/L (-2.0-2.0) H 06/14/22 05:00 Anatoly Test Pos 06/14/22 05:00 A-a Gradient 129.0 mmHg 06/14/22 05:00 FiO2 36.0 06/14/22 05:00 Blood Gas Comments [facility] sw 06/14/22 05:00 Sodium 139 mmol/L (136-145) 06/20/22 05:43 Corrected Sodium 140 mmol/L (136-145) 06/20/22 05:43 Potassium 3.4 mmol/L (3.5-5.1) L 06/20/22 05:43 Chloride 99 mmol/L (98-107) 06/20/22 05:43 Carbon Dioxide 33.5 mmol/L (21-32) H 06/20/22 05:43 BUN 25 mg/dL (7-18) H 06/20/22 05:43 Creatinine 0.91 mg/dL (0.70-1.30) 06/20/22 05:43 Est GFR (MDRD) Af Amer > 60 (>60) 06/20/22 05:43 Est GFR (MDRD) Non-Af > 60 (>60) 06/20/22 05:43 Glucose 154 mg/dL (65-99) H 06/20/22 05:43 Calcium 7.4 mg/dL (8.5-10.1) L 06/20/22 05:43 Corrected Calcium 8.4 mg/dL (8.5-10.1) L 06/20/22 05:43 Magnesium 2.3 mg/dL (1.7-2.9) 06/19/22 07:07 Total Bilirubin 0.80 mg/dL (0.2-1.0) 06/20/22 05:43 AST 33 Units/L (15-37) 06/20/22 05:43 ALT 39 Units/L (12-78) 06/20/22 05:43 Alkaline Phosphatase 38 Units/L (46-116) L 06/20/22 05:43 Creatine Kinase 73 Units/L (39-308) 06/13/22 17:54 Troponin I High Sens 16.9 ng/L (4.0-60.0) 06/13/22 17:54 C-Reactive Protein 30.10 mg/L (0-3.0) H 06/13/22 17:54 B-Natriuretic Peptide 429 pg/mL (0-79) H 06/14/22 05:51 Total Protein 5.8 g/dL (6.4-8.2) L 06/20/22 05:43 Albumin 2.7 g/dL (3.4-5.0) L 06/20/22 05:43 Globulin 3.1 g/dL (2.5-4.5) 06/20/22 05:43 Albumin/Globulin Ratio 0.9 Ratio (1.1-2.1) L 06/20/22 05:43 SARS-CoV-2 (PCR) Negative (NEGATIVE) 06/13/22 17:59 Influenza Type A (PCR) Negative (NEGATIVE) 06/13/22 17:59 Influenza Type B (PCR) Negative (NEGATIVE) 06/13/22 17:59 RSV (PCR) Negative (NEGATIVE) 06/13/22 17:59 - Plan (1) Pneumonia Status: Acute Qualifiers: Pneumonia type: due to unspecified organism Laterality: bilateral Lung location: unspecified part of lung Qualified Code(s): J18.9 - Pneumonia, unspecified organism Plan: 1/2NS AT 75 ML/HR, LEVAQUIN 500MG IV DAILY, FORTAZ 1G IV Q8H, SOLU-MEDROL 80MG IV Q8H, XOPENEX NEBS Q6H, PULMICORT NEBS BID, TUSSIONEX 5ML PO Q12H, LOVENOX 40MG SC DAILY, ROBITUSSIN DM 10ML PO QID, SEROQUEL 25MG PO BID, PROBIOTICS, POTASSIUM AND MAGNESIUM PROTOCOLS. RESUME HOME MEDS (2) Respiratory failure with hypoxia and hypercapnia Status: Acute Qualifiers: Chronicity: acute Qualified Code(s): J96.01 - Acute respiratory failure with hypoxia; J96.02 - Acute respiratory failure with hypercapnia (3) Hypokalemia Status: Acute (4) HTN (hypertension) Status: Chronic Qualifiers: Hypertension type: primary hypertension Qualified Code(s): I10 - Essential (primary) hypertension (5) COPD (chronic obstructive pulmonary disease) Status: Chronic Qualifiers: COPD type: unspecified COPD Qualified Code(s): J44.9 - Chronic obstructive pulmonary disease, unspecified
[2022-06-20] MEDS: NORCO 5/325 MG TAB PO PRN (17:41)
[2022-06-20] MEDS ORDERED: NS 100 ML IV 100 ML ONE (21:08)
[2022-06-20] MEDS: FLOMAX PO SCH (21:19)
[2022-06-20] MEDS: MILK OF MAGNESIA PO SCH (21:19)
[2022-06-20] MEDS: COLACE CAP 100 MG PO SCH (21:19)
[2022-06-20] MEDS: CRESTOR TAB 10 MG PO SCH (21:20)
[2022-06-20] MEDS: NEURONTIN CAP 300 MG PO SCH (21:22)
[2022-06-21] MEDS: XOPENEX 1.25 MG/3 ML NEBULE NEB SCH ×4 (00:31→18:00)
[2022-06-21] MEDS ORDERED: NS 100 ML IV 100 ML ONE (04:51)
[2022-06-21] MEDS: FORTAZ or TAZICEF VIAL INJ IVP SCH ×3 (05:33→21:36)
[2022-06-21] MEDS: SOLU-Medrol 40 MG VIAL IVP SCH ×3 (05:34→21:36)
[2022-06-21] MEDS: REQUIP PO SCH ×3 (05:34→21:36)
[2022-06-21 05:47] LABS: BASOPHILS % (AUTO) 0.2 % (0.2-1.0); HEMATOCRIT 34.2 % (42.0-54.0); HEMOGLOBIN 11.4 g/dL (13.5-18.0); LYMPHOCYTES # (AUTO) 0.8 X10^3/uL (1.3-2.9); LYMPHOCYTES % (AUTO) 9.3 % (21.0-51.0); MEAN CORPUSCULAR HEMOGLOBIN 28.4 pg (27.0-34.0); MEAN CORPUSCULAR HGB CONC 33.2 g/dL (33.0-35.0); MEAN CORPUSCULAR VOLUME 85.4 fL (80.0-100.0); MONOCYTES # (AUTO) 0.5 x10^3/uL (0.3-0.8); MONOCYTES % (AUTO) 5.8 % (0.0-13.0); NEUTROPHILS # (AUTO) 6.9 x10^3/uL (2.2-4.8); NEUTROPHILS % (AUTO) 84.7 % (42.0-75.0); RED CELL DISTRIBUTION WIDTH 18.1 % (11.6-16.5); WHITE BLOOD COUNT 8.2 X10^3/uL (3.6-10.0)
--- NOTE | 2022-06-21 05:50 | RAD ---
PROCEDURE: Chest X-ray 1 View .HISTORY: Pneumonia and dyspnea.TECHNIQUE: AP portable done at 4:43 a.m..COMPARISON: 06/20/2022.TECHNICAL QUALITY: Satisfactory .FINDINGS:Normal size heart .Mediastinum and hilar regions show no masses or lymphadenopathy .Normal central vascularity .Unchanged pneumonia right base. Left lung eric predominantly clear. No pleural fluid.No acute bony abnormality .IMPRESSION:Unchanged right basilar pneumonia.Electronically signed by: Chandu Macedo (Jun 21, 2022 05:48:49)
[2022-06-21 05:57] LABS: ALANINE AMINOTRANSFERASE 43 Units/L (12-78); ALBUMIN 2.7 g/dL (3.4-5.0); ALKALINE PHOSPHATASE 39 Units/L (46-116); ASPARTATE AMINO TRANSFERASE 32 Units/L (15-37); BLOOD UREA NITROGEN 24 mg/dL (7-18); CALCIUM 7.4 mg/dL (8.5-10.1); CARBON DIOXIDE 36.8 mmol/L (21-32); CHLORIDE 97 mmol/L (98-107); COR CA(FOR HYPOALB) 8.4 mg/dL (8.5-10.1); COR NA(FOR HYPERGLY) 141 mmol/L (136-145); CREATININE 0.71 mg/dL (0.70-1.30); SODIUM 140 mmol/L (136-145); eGFR NON BLACK RACES > 60 (>60)
[2022-06-21] MEDS: PULMICORT NEB TX 0.5 MG NEB SCH ×2 (08:41→21:00)
[2022-06-21] MEDS ORDERED: NS 1/2 1,000 ML IV 1,000 ML IV ONE (09:33)
[2022-06-21] MEDS: NS 1/2 1,000 ML IV 1,000 ML IV SCH ×2 (09:48→22:00)
[2022-06-21] MEDS: ANTIVERT TAB 25 MG PO SCH ×2 (09:49→21:35)
[2022-06-21] MEDS: LEVAQUIN PREMIX IV 500 MG 500 MG/100 ML BAG IV SCH (09:49)
[2022-06-21] MEDS: LOVENOX INJ 40 MG SYR SC SCH (09:50)
[2022-06-21] MEDS: PROTONIX TAB 40 MG PO SCH (09:50)
[2022-06-21] MEDS: CARDIZEM CD 120 MG 24-HR PO SCH (09:50)
[2022-06-21] MEDS: ROBITUSSIN DM PO SCH ×4 (09:50→21:36)
[2022-06-21] MEDS: TOPROL XL PO SCH (09:50)
[2022-06-21] MEDS: LASIX PO SCH (09:51)
[2022-06-21] MEDS: ASPIRIN EC 81 MG PO SCH (09:51)
[2022-06-21] MEDS: SEROquel TAB 25 mg PO SCH ×2 (09:51→21:36)
[2022-06-21] MEDS: K-DUR TAB 20 MEQ PO PRN (09:54)
--- NOTE | 2022-06-21 10:35 | PCM.PROG ---
Progress Note - Progress Note for Day of Date of Exam: 06/20/22 - Subjective Subjective: IS CURRENTLY INPATIENT STATUS FOR TREATMENT OF BILATERAL LOWER LOBE PNEUMONIA, RESPIRATORY FAILURE WITH HYPOXIA AND HYPRECAPNIA, HYPOKALEMIA, HTN, AND COPD. TODAY, HE IS ALERT, SITTING UP IN CHAIR ON MORNING ROUNDS. HE CONTINUES WITH COMPLAINTS OF A COUGH, SHORTNESS OF BREATH, AND G ENERALIZED WEAKNESS. PHYSICAL THERAPY HAS BEEN WORKING WITH PATIENT. HE DOES REQUIRE MODERATE ASSISTANCE FOR AMBULATION. ON EXAMINATION, HEART IS REGULAR IN RATE AND RHYTHM. BILATERAL LUNGS ARE NOTED WITH RHONCHI THROUGHOUT. ABDOMEN IS ROUND, SOFT, AND NON-TENDER WITH NORMAL BOWEL SOUNDS NOTED IN ALL QUADRANTS. TRACE LOWER EXTREMITY EDEMA NOTED. LAN CATHETER IS NOTED TO BEDSIDE DRAINAGE. HIS VITALS THIS MORNING ARE: 97.7-86-22-92%-129/78. HE IS CURRENTLY UTILIZING OXYGEN VIA NASAL CANNULA AT 3-4 LPM. OXYGEN SATURATIONS HAVE BEEN IN THE 90s THROUGHOUT THE NIGHT. LABS WERE OBTAINED. WBC 7.1, RBC 3.91, HGB 11.1, HCT 33.5, SODIUM 139, POTASSIUM 3.4, CARBON DIOXIDE 33.5, BUN 25, CREATININE 0.91, GLUCOSE 154, CALCIUM 7.4, AST 33, ALT 39, ALK PHOS 38, TOTAL PROTEIN 5.8, ALBUMIN 2.7 SPUTUM CULTURE IS POSITIVE FOR GROWTH OF STREPTOCOCCUS PNEUMONIAE. CHEST XRAY REVEALED: No change hyperinflation with diffuse interstitial lung changes. Increasing right basilar alveolar infiltrate and now a small right pleural effusion. HE IS CURRENTLY RECEIVING 1/2NS AT 75 ML/HR, LEVAQUIN 500MG IV DAILY, FORTAZ 1G IV Q8H, SOLU-MEDROL 80MG IV Q8H, XOPENEX NEBS Q6H, PULMICORT NEBS BID, TUSSIONEX 5ML PO Q12H, LOVENOX 40MG SC DAILY, ROBITUSSIN DM 10ML PO QID, PROBIOTICS, SEROQUEL 25MG PO BID, AND THE POTASSIUM AND MAGNESIUM PROTOCOLS. HIS HOME MEDICATIONS WERE ALSO RESUMED. WE WILL CONTINUE WITH CURRENT PLAN OF CARE TODAY. WE WILL BEGIN BLADDER TRAINING TO DISCONTINUE LAN. PHYSICAL THERAPY WILL WORK WITH PATIENT. OTHERWISE, WE WILL FOLLOW-UP WITH AM LABS AND CONTINUE TO MONITOR. TIME SPENT ON CLINICAL ASSESSMENT, REVIWING LABS AND IMAGING, DECISION MAKING, AND DOCUMENTATION GREATER THAN 45 MINUTES. - Past Medical Family Social History Past Med/Fam/Surg Hx: No changes since H&P Allergies: Allergies No Known Drug Allergies Allergy (Verified 06/13/22 17:39) - Review of Systems ROS: No change since H&P - Vital Signs and I&O's Vital Signs: Temperature 97.9 F Pulse Rate [Left Brachial] 81 Pulse Rate 88 Respiratory Rate 20 Blood Pressure [Left Arm] 133/86 Blood Pressure [Right Arm] 160/92 Blood Pressure 100/55 O2 Sat by Pulse Oximetry 97 Intake and Output: Intake & Output 06/18/22 06/19/22 06/20/22 06/21/22 11:59 11:59 11:59 11:59 Intake Total 2836 / 2836 3376 / 3376 2891 / 2891 2570 / 2570 Output Total 3140 / 3140 4700 / 4700 4885 / 4885 3380 / 3380 Balance -304 / -304 -1324 / -1324 -1993 / -1994 -810 / -810 - Physical Exam Oriented: Normal Eyes: Normal Ear: Normal Nose: Normal Throat: Normal Respiratory: Diminished, Rhonchi Cardiovascular: Normal : Normal Auscultation: Bowel Sounds: Normal Palpation: Normal Tenderness: Normal Skin: Normal Musculoskeletal: Normal Psychiatric: Normal Mood Description: Calm Affect: Normal Speech Pattern: Clear, Appropriate - Laboratory and Diagnostics Result Diagrams: 06/21/22 04:40 06/21/22 04:40 Labs: 06/13/22 17:54 Blood Blood Culture - Final 06/13/22 17:30 Blood Blood Culture - Final 06/13/22 18:05 Sputum - Expectorated Sputum Sputum Culture - Final Streptococcus Pneumoniae 06/13/22 18:05 Sputum - Expectorated Sputum - Final Laboratory WBC 8.2 X10^3/uL (3.6-10.0) 06/21/22 04:40 RBC 4.00 X10^6/uL (4.7-6.0) L 06/21/22 04:40 Hgb 11.4 g/dL (13.5-18.0) L 06/21/22 04:40 Hct 34.2 % (42.0-54.0) L 06/21/22 04:40 MCV 85.4 fL (80.0-100.0) 06/21/22 04:40 MCH 28.4 pg (27.0-34.0) 06/21/22 04:40 MCHC 33.2 g/dL (33.0-35.0) 06/21/22 04:40 RDW 18.1 % (11.6-16.5) H 06/21/22 04:40 Plt Count 202 X10^3/uL (150.0-450.0) 06/21/22 04:40 MPV 8.0 fL (7.4-11.0) 06/21/22 04:40 Neut % (Auto) 84.7 % (42.0-75.0) H 06/21/22 04:40 Lymph % (Auto) 9.3 % (21.0-51.0) L 06/21/22 04:40 [place] % (Auto) 5.8 % (0.0-13.0) 06/21/22 04:40 Eos % (Auto) 0.0 % (0.9-2.9) L 06/21/22 04:40 Baso % (Auto) 0.2 % (0.2-1.0) 06/21/22 04:40 Neut # (Auto) 6.9 x10^3/uL (2.2-4.8) H 06/21/22 04:40 Lymph # (Auto) 0.8 X10^3/uL (1.3-2.9) L 06/21/22 04:40 [place] # (Auto) 0.5 x10^3/uL (0.3-0.8) 06/21/22 04:40 Eos # (Auto) 0.0 x10^3/uL (0.0-0.2) 06/21/22 04:40 Baso # (Auto) 0.0 X10^3/uL (0.0-0.1) 06/21/22 04:40 Absolute Nucleated RBC 0.1 /100WBC 06/21/22 04:40 D-Dimer 1.90 ug/ml (0.0-0.57) H 06/13/22 17:30 Sample Site Rr 06/14/22 05:00 ABG pH 7.460 (7.35-7.45) H 06/14/22 05:00 ABG pCO2 50.0 mmHg (35.0-45.0) H 06/14/22 05:00 ABG pO2 65.0 mmHg (80.0-100.0) L 06/14/22 05:00 ABG HCO3 35.6 mmol/L (22-26) H* 06/14/22 05:00 ABG O2 Saturation 94.0 % (90-100) 06/14/22 05:00 ABG Base Excess 10.2 mmol/L (-2.0-2.0) H 06/14/22 05:00 Anatoly Test Pos 06/14/22 05:00 A-a Gradient 129.0 mmHg 06/14/22 05:00 FiO2 36.0 06/14/22 05:00 Blood Gas Comments [facility] sw 06/14/22 05:00 Sodium 140 mmol/L (136-145) 06/21/22 04:40 Corrected Sodium 141 mmol/L (136-145) 06/21/22 04:40 Potassium 3.1 mmol/L (3.5-5.1) L 06/21/22 04:40 Chloride 97 mmol/L (98-107) L 06/21/22 04:40 Carbon Dioxide 36.8 mmol/L (21-32) H 06/21/22 04:40 BUN 24 mg/dL (7-18) H 06/21/22 04:40 Creatinine 0.71 mg/dL (0.70-1.30) 06/21/22 04:40 Est GFR (MDRD) Af Amer > 60 (>60) 06/21/22 04:40 Est GFR (MDRD) Non-Af > 60 (>60) 06/21/22 04:40 Glucose 146 mg/dL (65-99) H 06/21/22 04:40 Calcium 7.4 mg/dL (8.5-10.1) L 06/21/22 04:40 Corrected Calcium 8.4 mg/dL (8.5-10.1) L 06/21/22 04:40 Magnesium 2.3 mg/dL (1.7-2.9) 06/19/22 07:07 Total Bilirubin 0.90 mg/dL (0.2-1.0) 06/21/22 04:40 AST 32 Units/L (15-37) 06/21/22 04:40 ALT 43 Units/L (12-78) 06/21/22 04:40 Alkaline Phosphatase 39 Units/L (46-116) L 06/21/22 04:40 Creatine Kinase 73 Units/L (39-308) 06/13/22 17:54 Troponin I High Sens 16.9 ng/L (4.0-60.0) 06/13/22 17:54 C-Reactive Protein 30.10 mg/L (0-3.0) H 06/13/22 17:54 B-Natriuretic Peptide 429 pg/mL (0-79) H 06/14/22 05:51 Total Protein 6.0 g/dL (6.4-8.2) L 06/21/22 04:40 Albumin 2.7 g/dL (3.4-5.0) L 06/21/22 04:40 Globulin 3.3 g/dL (2.5-4.5) 06/21/22 04:40 Albumin/Globulin Ratio 0.8 Ratio (1.1-2.1) L 06/21/22 04:40 SARS-CoV-2 (PCR) Negative (NEGATIVE) 06/13/22 17:59 Influenza Type A (PCR) Negative (NEGATIVE) 06/13/22 17:59 Influenza Type B (PCR) Negative (NEGATIVE) 06/13/22 17:59 RSV (PCR) Negative (NEGATIVE) 06/13/22 17:59 - Plan (1) Pneumonia Status: Acute Qualifiers: Pneumonia type: due to unspecified organism Laterality: bilateral Lung location: unspecified part of lung Qualified Code(s): J18.9 - Pneumonia, unspecified organism Plan: 1/2NS AT 75 ML/HR, LEVAQUIN 500MG IV DAILY, FORTAZ 1G IV Q8H, SOLU-MEDROL 80MG IV Q8H, XOPENEX NEBS Q6H, PULMICORT NEBS BID, TUSSIONEX 5ML PO Q12H, LOVENOX 40MG SC DAILY, ROBITUSSIN DM 10ML PO QID, SEROQUEL 25MG PO BID, PROBIOTICS, POTASSIUM AND MAGNESIUM PROTOCOLS. RESUME HOME MEDS (2) Respiratory failure with hypoxia and hypercapnia Status: Acute Qualifiers: Chronicity: acute Qualified Code(s): J96.01 - Acute respiratory failure with hypoxia; J96.02 - Acute respiratory failure with hypercapnia (3) Hypokalemia Status: Acute (4) HTN (hypertension) Status: Chronic Qualifiers: Hypertension type: primary hypertension Qualified Code(s): I10 - Essential (primary) hypertension (5) COPD (chronic obstructive pulmonary disease) Status: Chronic Qualifiers: COPD type: unspecified COPD Qualified Code(s): J44.9 - Chronic obstructive pulmonary disease, unspecified
[2022-06-21] MEDS: VSL#3 PO SCH (14:18)
[2022-06-21] MEDS: FLOMAX PO SCH (21:37)
[2022-06-21] MEDS: MILK OF MAGNESIA PO SCH (21:37)
[2022-06-21] MEDS: NEURONTIN CAP 300 MG PO SCH (21:37)
[2022-06-21] MEDS: COLACE CAP 100 MG PO SCH (21:38)
[2022-06-21] MEDS: CRESTOR TAB 10 MG PO SCH (21:38)
[2022-06-22 05:32] LABS: BASOPHILS % (AUTO) 0.3 % (0.2-1.0); HEMATOCRIT 34.8 % (42.0-54.0); HEMOGLOBIN 11.5 g/dL (13.5-18.0); LYMPHOCYTES # (AUTO) 0.9 X10^3/uL (1.3-2.9); LYMPHOCYTES % (AUTO) 8.9 % (21.0-51.0); MEAN CORPUSCULAR HEMOGLOBIN 28.2 pg (27.0-34.0); MEAN CORPUSCULAR HGB CONC 32.9 g/dL (33.0-35.0); MEAN CORPUSCULAR VOLUME 85.6 fL (80.0-100.0); MEAN PLATELET VOLUME 7.7 fL (7.4-11.0); MONOCYTES # (AUTO) 0.6 x10^3/uL (0.3-0.8); MONOCYTES % (AUTO) 5.9 % (0.0-13.0); NEUTROPHILS # (AUTO) 8.5 x10^3/uL (2.2-4.8); NEUTROPHILS % (AUTO) 84.9 % (42.0-75.0); RED BLOOD COUNT 4.06 X10^6/uL (4.7-6.0); RED CELL DISTRIBUTION WIDTH 18.1 % (11.6-16.5)
[2022-06-22] MEDS: XOPENEX 1.25 MG/3 ML NEBULE NEB SCH ×4 (05:40→16:08)
[2022-06-22] MEDS: REQUIP PO SCH ×3 (05:40→21:26)
[2022-06-22] MEDS: FORTAZ or TAZICEF VIAL INJ IVP SCH ×3 (05:40→21:26)
[2022-06-22] MEDS: SOLU-Medrol 40 MG VIAL IVP SCH ×3 (05:41→21:26)
[2022-06-22 05:44] LABS: ALANINE AMINOTRANSFERASE 50 Units/L (12-78); ALBUMIN 2.7 g/dL (3.4-5.0); ALKALINE PHOSPHATASE 43 Units/L (46-116); ASPARTATE AMINO TRANSFERASE 37 Units/L (15-37); BLOOD UREA NITROGEN 22 mg/dL (7-18); CALCIUM 7.7 mg/dL (8.5-10.1); CARBON DIOXIDE 38.9 mmol/L (21-32); CHLORIDE 98 mmol/L (98-107); COR CA(FOR HYPOALB) 8.7 mg/dL (8.5-10.1); COR NA(FOR HYPERGLY) 142 mmol/L (136-145); SODIUM 141 mmol/L (136-145); TOTAL PROTEIN 5.8 g/dL (6.4-8.2); eGFR NON BLACK RACES > 60 (>60)
[2022-06-22] MEDS: K-DUR TAB 20 MEQ PO PRN (06:05)
--- NOTE | 2022-06-22 06:06 | RAD ---
HISTORYSOB HX: HTN, AFIB, COPDSTUDYCHEST, 1 [id number] trachea is midline. The cardiac silhouette is unremarkable. Right basilar pneumonia with small pleural effusion. The bony thorax is unremarkable.IMPRESSIONRight basilar pneumonia with small pleural effusion unchanged from 06/21/2022..Electronically signed by: Kurtis Dickinson (Jun 22, 2022 06:04:54)
[2022-06-22] MEDS: PULMICORT NEB TX 0.5 MG NEB SCH ×2 (08:30→20:50)
[2022-06-22] MEDS: ANTIVERT TAB 25 MG PO SCH ×2 (09:08→21:23)
[2022-06-22] MEDS: VSL#3 PO SCH (09:09)
[2022-06-22] MEDS: LASIX PO SCH (09:09)
[2022-06-22] MEDS: ROBITUSSIN DM PO SCH ×4 (09:09→21:25)
[2022-06-22] MEDS: SEROquel TAB 25 mg PO SCH ×2 (09:09→21:25)
[2022-06-22] MEDS: CARDIZEM CD 120 MG 24-HR PO SCH (09:09)
[2022-06-22] MEDS: TOPROL XL PO SCH (09:09)
[2022-06-22] MEDS: LEVAQUIN PREMIX IV 500 MG 500 MG/100 ML BAG IV SCH (09:09)
[2022-06-22] MEDS: ASPIRIN EC 81 MG PO SCH (09:09)
[2022-06-22] MEDS: PROTONIX TAB 40 MG PO SCH (09:09)
[2022-06-22] MEDS: LOVENOX INJ 40 MG SYR SC SCH (09:10)
[2022-06-22] MEDS: NS 1/2 1,000 ML IV 1,000 ML IV SCH (12:19)
--- NOTE | 2022-06-22 13:13 | PCM.PROG ---
Progress Note Progress Note for Day of Date of Exam: 06/22/22 Subjective Subjective: IS CURRENTLY INPATIENT STATUS FOR TREATMENT OF BILATERAL LOWER LOBE PNEUMONIA, RESPIRATORY FAILURE WITH HYPOXIA AND HYPRECAPNIA, HYPOKALEMIA, HTN, AND COPD. TODAY, HE IS ALERT, SITTING UP IN CHAIR ON MORNING ROUNDS. HE CONTINUES WITH COMPLAINTS OF A COUGH, SHORTNESS OF BREATH, AND GENERALIZED WEAKNESS. PHYSICAL THERAPY HAS BEEN WORKING WITH PATIENT. HE DOES REQUIRE MODERATE ASSISTANCE FOR AMBULATION. ON EXAMINATION, HEART IS REGULAR IN RATE AND RHYTHM. BILATERAL LUNGS ARE NOTED WITH RHONCHI THROUGHOUT. ABDOMEN IS ROUND, SOFT, AND NON-TENDER WITH NORMAL BOWEL SOUNDS NOTED IN ALL QUADRANTS. TRACE LOWER EXTREMITY EDEMA NOTED. LAN CATHETER IS NOTED TO BEDSIDE DRAINAGE. HIS VITALS THIS MORNING ARE: 97.7-86-22-92%-129/78. HE IS CURRENTLY UTILIZING OXYGEN VIA NASAL CANNULA AT 3-4 LPM. OXYGEN SATURATIONS HAVE BEEN IN THE 90s THROUGHOUT THE NIGHT. LABS WERE OBTAINED. WBC 7.1, RBC 3.91, HGB 11.1, HCT 33.5, SODIUM 139, POTASSIUM 3.4, CARBON DIOXIDE 33.5, BUN 25, CREATININE 0.91, GLUCOSE 154, CALCIUM 7.4, AST 33, ALT 39, ALK PHOS 38, TOTAL PROTEIN 5.8, ALBUMIN 2.7 SPUTUM CULTURE IS POSITIVE FOR GROWTH OF STREPTOCOCCUS PNEUMONIAE. CHEST XRAY REVEALED: No change hyperinflation with diffuse interstitial lung changes. Increasing right basilar alveolar infiltrate and now a small right pleural effusion. HE IS CURRENTLY RECEIVING 1/2NS AT 75 ML/HR, LEVAQUIN 500MG IV DAILY, FORTAZ 1G IV Q8H, SOLU-MEDROL 80MG IV Q8H, XOPENEX NEBS Q6H, PULMICORT NEBS BID, TUSSIONEX 5ML PO Q12H, LOVENOX 40MG SC DAILY, ROBITUSSIN DM 10ML PO QID, PROBIOTICS, SEROQUEL 25MG PO BID, AND THE POTASSIUM AND MAGNESIUM PROTOCOLS. HIS HOME MEDICATIONS WERE ALSO RESUMED. WE WILL CONTINUE WITH CURRENT PLAN OF CARE TODAY. WE WILL BEGIN BLADDER TRAINING TO DISCONTINUE LAN. PHYSICAL THERAPY WILL WORK WITH PATIENT. OTHERWISE, WE WILL FOLLOW-UP WITH AM LABS AND CONTINUE TO MONITOR. TIME SPENT ON CLINICAL ASSESSMENT, REVIWING LABS AND IMAGING, DECISION MAKING, AND DOCUMENTATION GREATER THAN 45 MINUTES. Friday, 22 June 2022 The patient is eating his breakfast this morning. He reports his pain is controlled and has no problems this morning. His breathing is doing better he reports since coming in the hospital. Currently satting 100% on 3 L nasal cannula. His vital signs are stable and has a normal white blood cell count this morning. Past Medical Family Social History Past Med/Fam/Surg Hx: No changes since H&P Allergies: Allergies No Known Drug Allergies Allergy (Verified 06/13/22 17:39) Review of Systems ROS: No change since H&P Vital Signs and I&O's Vital Signs: Temperature 98.5 F Pulse Rate [Left Brachial] 84 Pulse Rate 79 Respiratory Rate 22 Blood Pressure [Left Arm] 133/88 Blood Pressure [Right Arm] 160/92 Blood Pressure 100/55 O2 Sat by Pulse Oximetry 100 Intake and Output: Intake & Output 06/20/22 06/21/22 06/22/22 06/23/22 11:59 11:59 11:59 11:59 Intake Total 2891 / 2891 2570 / 2570 1580 / 1580 Output Total 4885 / 4885 3380 / 3380 2785 / 2785 Balance -1994 / -1994 -810 / -810 -1205 / -1205 Physical Exam Oriented: Normal Eyes: Normal Ear: Normal Nose: Normal Throat: Normal Respiratory: Diminished and Rhonchi Cardiovascular: Normal : Normal Auscultation: Bowel Sounds: Normal Tenderness: Normal Skin: Normal Musculoskeletal: Normal Psychiatric: Normal Mood Description: Calm Affect: Normal Speech Pattern: Clear and Appropriate Laboratory and Diagnostics Result Diagrams: 06/22/22 05:13 06/22/22 05:13 Labs: 06/13/22 17:54 Blood Blood Culture - Final 06/13/22 17:30 Blood Blood Culture - Final 06/13/22 18:05 Sputum - Expectorated Sputum Sputum Culture - Final Streptococcus Pneumoniae 06/13/22 18:05 Sputum - Expectorated Sputum - Final Laboratory WBC 10.0 X10^3/uL (3.6-10.0) 06/22/22 05:13 RBC 4.06 X10^6/uL (4.7-6.0) L 06/22/22 05:13 Hgb 11.5 g/dL (13.5-18.0) L 06/22/22 05:13 Hct 34.8 % (42.0-54.0) L 06/22/22 05:13 MCV 85.6 fL (80.0-100.0) 06/22/22 05:13 MCH 28.2 pg (27.0-34.0) 06/22/22 05:13 MCHC 32.9 g/dL (33.0-35.0) L 06/22/22 05:13 RDW 18.1 % (11.6-16.5) H 06/22/22 05:13 Plt Count 199 X10^3/uL (150.0-450.0) 06/22/22 05:13 MPV 7.7 fL (7.4-11.0) 06/22/22 05:13 Neut % (Auto) 84.9 % (42.0-75.0) H 06/22/22 05:13 Lymph % (Auto) 8.9 % (21.0-51.0) L 06/22/22 05:13 [place] % (Auto) 5.9 % (0.0-13.0) 06/22/22 05:13 Eos % (Auto) 0.0 % (0.9-2.9) L 06/22/22 05:13 Baso % (Auto) 0.3 % (0.2-1.0) 06/22/22 05:13 Neut # (Auto) 8.5 x10^3/uL (2.2-4.8) H 06/22/22 05:13 Lymph # (Auto) 0.9 X10^3/uL (1.3-2.9) L 06/22/22 05:13 [place] # (Auto) 0.6 x10^3/uL (0.3-0.8) 06/22/22 05:13 Eos # (Auto) 0.0 x10^3/uL (0.0-0.2) 06/22/22 05:13 Baso # (Auto) 0.0 X10^3/uL (0.0-0.1) 06/22/22 05:13 Absolute Nucleated RBC 0.0 /100WBC 06/22/22 05:13 D-Dimer 1.90 ug/ml (0.0-0.57) H 06/13/22 17:30 Sample Site Rr 06/14/22 05:00 ABG pH 7.460 (7.35-7.45) H 06/14/22 05:00 ABG pCO2 50.0 mmHg (35.0-45.0) H 06/14/22 05:00 ABG pO2 65.0 mmHg (80.0-100.0) L 06/14/22 05:00 ABG HCO3 35.6 mmol/L (22-26) H* 06/14/22 05:00 ABG O2 Saturation 94.0 % (90-100) 06/14/22 05:00 ABG Base Excess 10.2 mmol/L (-2.0-2.0) H 06/14/22 05:00 Anatoly Test Pos 06/14/22 05:00 A-a Gradient 129.0 mmHg 06/14/22 05:00 FiO2 36.0 06/14/22 05:00 Blood Gas Comments [facility] sw 06/14/22 05:00 Sodium 141 mmol/L (136-145) 06/22/22 05:13 Corrected Sodium 142 mmol/L (136-145) 06/22/22 05:13 Potassium 3.5 mmol/L (3.5-5.1) 06/22/22 05:13 Chloride 98 mmol/L (98-107) 06/22/22 05:13 Carbon Dioxide 38.9 mmol/L (21-32) H 06/22/22 05:13 BUN 22 mg/dL (7-18) H 06/22/22 05:13 Creatinine 0.80 mg/dL (0.70-1.30) 06/22/22 05:13 Est GFR (MDRD) Af Amer > 60 (>60) 06/22/22 05:13 Est GFR (MDRD) Non-Af > 60 (>60) 06/22/22 05:13 Glucose 145 mg/dL (65-99) H 06/22/22 05:13 Calcium 7.7 mg/dL (8.5-10.1) L 06/22/22 05:13 Corrected Calcium 8.7 mg/dL (8.5-10.1) 06/22/22 05:13 Magnesium 2.5 mg/dL (1.7-2.9) 06/22/22 05:13 Total Bilirubin 1.00 mg/dL (0.2-1.0) 06/22/22 05:13 AST 37 Units/L (15-37) 06/22/22 05:13 ALT 50 Units/L (12-78) 06/22/22 05:13 Alkaline Phosphatase 43 Units/L (46-116) L 06/22/22 05:13 Creatine Kinase 73 Units/L (39-308) 06/13/22 17:54 Troponin I High Sens 16.9 ng/L (4.0-60.0) 06/13/22 17:54 C-Reactive Protein 30.10 mg/L (0-3.0) H 06/13/22 17:54 B-Natriuretic Peptide 429 pg/mL (0-79) H 06/14/22 05:51 Total Protein 5.8 g/dL (6.4-8.2) L 06/22/22 05:13 Albumin 2.7 g/dL (3.4-5.0) L 06/22/22 05:13 Globulin 3.1 g/dL (2.5-4.5) 06/22/22 05:13 Albumin/Globulin Ratio 0.9 Ratio (1.1-2.1) L 06/22/22 05:13 SARS-CoV-2 (PCR) Negative (NEGATIVE) 06/13/22 17:59 Influenza Type A (PCR) Negative (NEGATIVE) 06/13/22 17:59 Influenza Type B (PCR) Negative (NEGATIVE) 06/13/22 17:59 RSV (PCR) Negative (NEGATIVE) 06/13/22 17:59 Plan (1) Pneumonia: Status: Acute Qualifiers: Pneumonia type: due to unspecified organism Laterality: bilateral Lung location: unspecified part of lung Qualified Code(s): J18.9 - Pneumonia, unspecified organism Narrative Support Text: Chest x-ray is generally unchanged since yesterday. Plan: 1/2NS AT 75 ML/HR, LEVAQUIN 500MG IV DAILY, FORTAZ 1G IV Q8H, SOLU- MEDROL 80MG IV Q8H, XOPENEX NEBS Q6H, PULMICORT NEBS BID, TUSSIONEX 5ML PO Q12H, LOVENOX 40MG SC DAILY, ROBITUSSIN DM 10ML PO QID, SEROQUEL 25MG PO BID, PROBIOTICS, POTASSIUM AND MAGNESIUM PROTOCOLS. RESUME HOME MEDS (2) Respiratory failure with hypoxia and hypercapnia: Status: Acute Qualifiers: Chronicity: acute Qualified Code(s): J96.01 - Acute respiratory failure with hypoxia; J96.02 - Acute respiratory failure with hypercapnia Plan: Continue supplemental O2 via nasal cannula. (3) Hypokalemia: Status: Acute (4) HTN (hypertension): Status: Chronic Qualifiers: Hypertension type: primary hypertension Qualified Code(s): I10 - Essential (primary) hypertension Narrative Support Text: Blood pressure stable. (5) COPD (chronic obstructive pulmonary disease): Status: Chronic Qualifiers: COPD type: unspecified COPD Qualified Code(s): J44.9 - Chronic obstructive pulmonary disease, unspecified Plan: Continue current treatment with no changes today.
[2022-06-22 20:18] VITALS: BMI 28.4
[2022-06-22] MEDS: COLACE CAP 100 MG PO SCH (21:23)
[2022-06-22] MEDS: FLOMAX PO SCH (21:24)
[2022-06-22] MEDS: CRESTOR TAB 10 MG PO SCH (21:24)
[2022-06-22] MEDS: MILK OF MAGNESIA PO SCH (21:24)
[2022-06-22] MEDS: NEURONTIN CAP 300 MG PO SCH (21:25)
[2022-06-23] MEDS: XOPENEX 1.25 MG/3 ML NEBULE NEB SCH ×4 (00:10→16:30)
[2022-06-23] MEDS ORDERED: NS 1/2 1,000 ML IV 1,000 ML IV ONE (01:22)
[2022-06-23] MEDS: NS 1/2 1,000 ML IV 1,000 ML IV SCH ×3 (01:28→17:05)
[2022-06-23] MEDS: REQUIP PO SCH ×3 (05:42→20:59)
[2022-06-23] MEDS: FORTAZ or TAZICEF VIAL INJ IVP SCH ×3 (05:42→21:01)
[2022-06-23] MEDS: SOLU-Medrol 40 MG VIAL IVP SCH ×3 (05:43→21:01)
[2022-06-23 06:39] LABS: BASOPHILS % (AUTO) 0.1 % (0.2-1.0); HEMATOCRIT 34.1 % (42.0-54.0); HEMOGLOBIN 11.4 g/dL (13.5-18.0); LYMPHOCYTES # (AUTO) 1.1 X10^3/uL (1.3-2.9); LYMPHOCYTES % (AUTO) 11.6 % (21.0-51.0); MEAN CORPUSCULAR HEMOGLOBIN 28.7 pg (27.0-34.0); MEAN CORPUSCULAR HGB CONC 33.5 g/dL (33.0-35.0); MEAN CORPUSCULAR VOLUME 85.9 fL (80.0-100.0); MEAN PLATELET VOLUME 8.2 fL (7.4-11.0); MONOCYTES # (AUTO) 0.5 x10^3/uL (0.3-0.8); MONOCYTES % (AUTO) 4.9 % (0.0-13.0); NEUTROPHILS # (AUTO) 7.8 x10^3/uL (2.2-4.8); NEUTROPHILS % (AUTO) 83.4 % (42.0-75.0); RED BLOOD COUNT 3.97 X10^6/uL (4.7-6.0); WHITE BLOOD COUNT 9.4 X10^3/uL (3.6-10.0)
[2022-06-23 06:46] LABS: ALANINE AMINOTRANSFERASE 57 Units/L (12-78); ALBUMIN 2.6 g/dL (3.4-5.0); ALKALINE PHOSPHATASE 41 Units/L (46-116); ASPARTATE AMINO TRANSFERASE 35 Units/L (15-37); BLOOD UREA NITROGEN 22 mg/dL (7-18); CALCIUM 7.5 mg/dL (8.5-10.1); CARBON DIOXIDE 39.9 mmol/L (21-32); CHLORIDE 98 mmol/L (98-107); COR CA(FOR HYPOALB) 8.6 mg/dL (8.5-10.1); COR NA(FOR HYPERGLY) 141 mmol/L (136-145); CREATININE 0.72 mg/dL (0.70-1.30); SODIUM 140 mmol/L (136-145); TOTAL PROTEIN 5.5 g/dL (6.4-8.2); eGFR NON BLACK RACES > 60 (>60)
--- NOTE | 2022-06-23 06:53 | RAD ---
HISTORYSOBSTUDYCHEST, 1 [id number]/2022FINDINGSLINES AND TUBES: NoneHEART/ PULMONARY VASCULATURE: UnchangedLUNGS/ PLEURA: Right greater than left bibasilar airspace opacities and small effusions appear unchanged. No pneumothoraxIMPRESSIONNo significant interval change.Electronically signed by: Ranjith Grover (Jun 23, 2022 06:51:57)
[2022-06-23 07:19] LABS: ANISOCYTOSIS SLIGHT; BAND NEUTROPHILS % 2 % (0-10); METAMYELOCYTES % 2; PLATELET MORPHOLOGY COMMENT NORMAL (NORMAL)
[2022-06-23] MEDS: PULMICORT NEB TX 0.5 MG NEB SCH ×2 (08:45→20:15)
[2022-06-23] MEDS: ROBITUSSIN DM PO SCH ×4 (09:48→20:56)
[2022-06-23] MEDS: TOPROL XL PO SCH (09:49)
[2022-06-23] MEDS: VSL#3 PO SCH (09:49)
[2022-06-23] MEDS: LEVAQUIN PREMIX IV 500 MG 500 MG/100 ML BAG IV SCH (09:49)
[2022-06-23] MEDS: PROTONIX TAB 40 MG PO SCH (09:49)
[2022-06-23] MEDS: ANTIVERT TAB 25 MG PO SCH ×2 (09:49→20:59)
[2022-06-23] MEDS: CARDIZEM CD 120 MG 24-HR PO SCH (09:50)
[2022-06-23] MEDS: LOVENOX INJ 40 MG SYR SC SCH (09:50)
[2022-06-23] MEDS: ASPIRIN EC 81 MG PO SCH (09:50)
[2022-06-23] MEDS: SEROquel TAB 25 mg PO SCH ×2 (09:50→20:59)
[2022-06-23] MEDS: LASIX PO SCH (09:50)
[2022-06-23] MEDS ORDERED: PREPARATION H OINT RECTAL PRN (11:16)
[2022-06-23] MEDS ORDERED: TUCKS MEDICATED PAD TOP PRN (11:22)
[2022-06-23] MEDS: MILK OF MAGNESIA PO SCH ×2 (13:31→20:57)
--- NOTE | 2022-06-23 16:08 | PCM.PROG ---
Progress Note Progress Note for Day of Date of Exam: 06/23/22 Subjective Subjective: IS CURRENTLY INPATIENT STATUS FOR TREATMENT OF BILATERAL LOWER LOBE PNEUMONIA, RESPIRATORY FAILURE WITH HYPOXIA AND HYPRECAPNIA, HYPOKALEMIA, HTN, AND COPD. TODAY, HE IS ALERT, SITTING UP IN CHAIR ON MORNING ROUNDS. HE CONTINUES WITH COMPLAINTS OF A COUGH, SHORTNESS OF BREATH, AND GENERALIZED WEAKNESS. PHYSICAL THERAPY HAS BEEN WORKING WITH PATIENT. HE DOES REQUIRE MODERATE ASSISTANCE FOR AMBULATION. ON EXAMINATION, HEART IS REGULAR IN RATE AND RHYTHM. BILATERAL LUNGS ARE NOTED WITH RHONCHI THROUGHOUT. ABDOMEN IS ROUND, SOFT, AND NON-TENDER WITH NORMAL BOWEL SOUNDS NOTED IN ALL QUADRANTS. TRACE LOWER EXTREMITY EDEMA NOTED. LAN CATHETER IS NOTED TO BEDSIDE DRAINAGE. HIS VITALS THIS MORNING ARE: 97.7-86-22-92%-129/78. HE IS CURRENTLY UTILIZING OXYGEN VIA NASAL CANNULA AT 3-4 LPM. OXYGEN SATURATIONS HAVE BEEN IN THE 90s THROUGHOUT THE NIGHT. LABS WERE OBTAINED. WBC 7.1, RBC 3.91, HGB 11.1, HCT 33.5, SODIUM 139, POTASSIUM 3.4, CARBON DIOXIDE 33.5, BUN 25, CREATININE 0.91, GLUCOSE 154, CALCIUM 7.4, AST 33, ALT 39, ALK PHOS 38, TOTAL PROTEIN 5.8, ALBUMIN 2.7 SPUTUM CULTURE IS POSITIVE FOR GROWTH OF STREPTOCOCCUS PNEUMONIAE. CHEST XRAY REVEALED: No change hyperinflation with diffuse interstitial lung changes. Increasing right basilar alveolar infiltrate and now a small right pleural effusion. HE IS CURRENTLY RECEIVING 1/2NS AT 75 ML/HR, LEVAQUIN 500MG IV DAILY, FORTAZ 1G IV Q8H, SOLU-MEDROL 80MG IV Q8H, XOPENEX NEBS Q6H, PULMICORT NEBS BID, TUSSIONEX 5ML PO Q12H, LOVENOX 40MG SC DAILY, ROBITUSSIN DM 10ML PO QID, PROBIOTICS, SEROQUEL 25MG PO BID, AND THE POTASSIUM AND MAGNESIUM PROTOCOLS. HIS HOME MEDICATIONS WERE ALSO RESUMED. WE WILL CONTINUE WITH CURRENT PLAN OF CARE TODAY. WE WILL BEGIN BLADDER TRAINING TO DISCONTINUE LAN. PHYSICAL THERAPY WILL WORK WITH PATIENT. OTHERWISE, WE WILL FOLLOW-UP WITH AM LABS AND CONTINUE TO MONITOR. TIME SPENT ON CLINICAL ASSESSMENT, REVIWING LABS AND IMAGING, DECISION MAKING, AND DOCUMENTATION GREATER THAN 45 MINUTES. Friday The patient is seems more confused than he did yesterday morning. He did not have any problems over the night. His O2 sat is 93% on 4 L nasal cannula today. Overall his lungs sound clearer than yesterday. His labs overall do not look bad. We will continue him on his current treatment and Dr. Araiza his primary care physician will be following up with him tomorrow morning. Past Medical Family Social History Past Med/Fam/Surg Hx: No changes since H&P Allergies: Allergies No Known Drug Allergies Allergy (Verified 06/13/22 17:39) Review of Systems ROS: No change since H&P Vital Signs and I&O's Vital Signs: Temperature 97.8 F Pulse Rate [Left Brachial] 92 Pulse Rate 87 Respiratory Rate 18 Blood Pressure [Left Arm] 147/90 Blood Pressure [Right Arm] 160/92 Blood Pressure 100/55 O2 Sat by Pulse Oximetry 93 Intake and Output: Intake & Output 06/21/22 06/22/22 06/23/22 06/24/22 11:59 11:59 11:59 11:59 Intake Total 2570 / 2570 1580 / 1580 1147 / 1147 Output Total 3380 / 3380 2785 / 2785 1680 / 1680 Balance -810 / -810 -1205 / -1205 -533 / -533 Physical Exam Oriented: Normal Eyes: Normal Ear: Normal Nose: Normal Throat: Normal Respiratory: Diminished and Rhonchi Cardiovascular: Normal : Normal Auscultation: Bowel Sounds: Normal Tenderness: Normal Skin: Normal Musculoskeletal: Normal Psychiatric: Normal Mood Description: Calm Affect: Normal Speech Pattern: Clear and Appropriate Laboratory and Diagnostics Result Diagrams: 06/23/22 05:21 06/23/22 05:21 Labs: 06/13/22 17:54 Blood Blood Culture - Final 06/13/22 17:30 Blood Blood Culture - Final 06/13/22 18:05 Sputum - Expectorated Sputum Sputum Culture - Final Streptococcus Pneumoniae 06/13/22 18:05 Sputum - Expectorated Sputum - Final Laboratory WBC 9.4 X10^3/uL (3.6-10.0) 06/23/22 05:21 RBC 3.97 X10^6/uL (4.7-6.0) L 06/23/22 05:21 Hgb 11.4 g/dL (13.5-18.0) L 06/23/22 05:21 Hct 34.1 % (42.0-54.0) L 06/23/22 05:21 MCV 85.9 fL (80.0-100.0) 06/23/22 05:21 MCH 28.7 pg (27.0-34.0) 06/23/22 05:21 MCHC 33.5 g/dL (33.0-35.0) 06/23/22 05:21 RDW 18.0 % (11.6-16.5) H 06/23/22 05:21 Plt Count 180 X10^3/uL (150.0-450.0) 06/23/22 05:21 Plt Count Comment Adequate (ADEQUATE) 06/23/22 05:21 MPV 8.2 fL (7.4-11.0) 06/23/22 05:21 Neut % (Auto) 83.4 % (42.0-75.0) H 06/23/22 05:21 Lymph % (Auto) 11.6 % (21.0-51.0) L 06/23/22 05:21 [place] % (Auto) 4.9 % (0.0-13.0) 06/23/22 05:21 Eos % (Auto) 0.0 % (0.9-2.9) L 06/23/22 05:21 Baso % (Auto) 0.1 % (0.2-1.0) L 06/23/22 05:21 Neut # (Auto) 7.8 x10^3/uL (2.2-4.8) H 06/23/22 05:21 Lymph # (Auto) 1.1 X10^3/uL (1.3-2.9) L 06/23/22 05:21 [place] # (Auto) 0.5 x10^3/uL (0.3-0.8) 06/23/22 05:21 Eos # (Auto) 0.0 x10^3/uL (0.0-0.2) 06/23/22 05:21 Baso # (Auto) 0.0 X10^3/uL (0.0-0.1) 06/23/22 05:21 Absolute Nucleated RBC 0.0 /100WBC 06/23/22 05:21 Total Counted 100 06/23/22 05:21 Neutrophils % (Manual) 80 % (39-76) H 06/23/22 05:21 Band Neutrophils % 2 % (0-10) 06/23/22 05:21 Lymphocytes % (Manual) 14 % (13-43) 06/23/22 05:21 Monocytes % (Manual) 1 % (4-9) L 06/23/22 05:21 Eosinophils % (Manual) 1 % (0-6) 06/23/22 05:21 Metamyelocytes % 2 06/23/22 05:21 Plt Morphology Comment Normal (NORMAL) 06/23/22 05:21 RBC Morphology Abnormal (NORMAL) 06/23/22 05:21 Anisocytosis Slight A 06/23/22 05:21 D-Dimer 1.90 ug/ml (0.0-0.57) H 06/13/22 17:30 Sample Site Rr 06/14/22 05:00 ABG pH 7.460 (7.35-7.45) H 06/14/22 05:00 ABG pCO2 50.0 mmHg (35.0-45.0) H 06/14/22 05:00 ABG pO2 65.0 mmHg (80.0-100.0) L 06/14/22 05:00 ABG HCO3 35.6 mmol/L (22-26) H* 06/14/22 05:00 ABG O2 Saturation 94.0 % (90-100) 06/14/22 05:00 ABG Base Excess 10.2 mmol/L (-2.0-2.0) H 06/14/22 05:00 Anatoly Test Pos 06/14/22 05:00 A-a Gradient 129.0 mmHg 06/14/22 05:00 FiO2 36.0 06/14/22 05:00 Blood Gas Comments [facility] sw 06/14/22 05:00 Sodium 140 mmol/L (136-145) 06/23/22 05:21 Corrected Sodium 141 mmol/L (136-145) 06/23/22 05:21 Potassium 3.6 mmol/L (3.5-5.1) 06/23/22 05:21 Chloride 98 mmol/L (98-107) 06/23/22 05:21 Carbon Dioxide 39.9 mmol/L (21-32) H 06/23/22 05:21 BUN 22 mg/dL (7-18) H 06/23/22 05:21 Creatinine 0.72 mg/dL (0.70-1.30) 06/23/22 05:21 Est GFR (MDRD) Af Amer > 60 (>60) 06/23/22 05:21 Est GFR (MDRD) Non-Af > 60 (>60) 06/23/22 05:21 Glucose 140 mg/dL (65-99) H 06/23/22 05:21 Calcium 7.5 mg/dL (8.5-10.1) L 06/23/22 05:21 Corrected Calcium 8.6 mg/dL (8.5-10.1) 06/23/22 05:21 Magnesium 2.5 mg/dL (1.7-2.9) 06/22/22 05:13 Total Bilirubin 1.00 mg/dL (0.2-1.0) 06/23/22 05:21 AST 35 Units/L (15-37) 06/23/22 05:21 ALT 57 Units/L (12-78) 06/23/22 05:21 Alkaline Phosphatase 41 Units/L (46-116) L 06/23/22 05:21 Creatine Kinase 73 Units/L (39-308) 06/13/22 17:54 Troponin I High Sens 16.9 ng/L (4.0-60.0) 06/13/22 17:54 C-Reactive Protein 30.10 mg/L (0-3.0) H 06/13/22 17:54 B-Natriuretic Peptide 429 pg/mL (0-79) H 06/14/22 05:51 Total Protein 5.5 g/dL (6.4-8.2) L 06/23/22 05:21 Albumin 2.6 g/dL (3.4-5.0) L 06/23/22 05:21 Globulin 2.9 g/dL (2.5-4.5) 06/23/22 05:21 Albumin/Globulin Ratio 0.9 Ratio (1.1-2.1) L 06/23/22 05:21 SARS-CoV-2 (PCR) Negative (NEGATIVE) 06/13/22 17:59 Influenza Type A (PCR) Negative (NEGATIVE) 06/13/22 17:59 Influenza Type B (PCR) Negative (NEGATIVE) 06/13/22 17:59 RSV (PCR) Negative (NEGATIVE) 06/13/22 17:59 Plan (1) Pneumonia: Status: Acute Qualifiers: Pneumonia type: due to unspecified organism Laterality: bilateral Lung location: unspecified part of lung Qualified Code(s): J18.9 - Pneumonia, unspecified organism Plan: 1/2NS AT 75 ML/HR, LEVAQUIN 500MG IV DAILY, FORTAZ 1G IV Q8H, SOLU- MEDROL 80MG IV Q8H, XOPENEX NEBS Q6H, PULMICORT NEBS BID, TUSSIONEX 5ML PO Q12H, LOVENOX 40MG SC DAILY, ROBITUSSIN DM 10ML PO QID, SEROQUEL 25MG PO BID, PROBIOTICS, POTASSIUM AND MAGNESIUM PROTOCOLS. RESUME HOME MEDS (2) Respiratory failure with hypoxia and hypercapnia: Status: Acute Qualifiers: Chronicity: acute Qualified Code(s): J96.01 - Acute respiratory failure with hypoxia; J96.02 - Acute respiratory failure with hypercapnia Plan: Continue supplemental O2 via nasal cannula. (3) Hypokalemia: Status: Resolved (4) HTN (hypertension): Status: Chronic Qualifiers: Hypertension type: primary hypertension Qualified Code(s): I10 - Essential (primary) hypertension (5) COPD (chronic obstructive pulmonary disease): Status: Chronic Qualifiers: COPD type: unspecified COPD Qualified Code(s): J44.9 - Chronic obstructive pulmonary disease, unspecified Plan: Continue current treatment with no changes today.
[2022-06-23] MEDS: NEURONTIN CAP 300 MG PO SCH (20:58)
[2022-06-23] MEDS: K-DUR TAB 20 MEQ PO PRN (20:59)
[2022-06-23] MEDS: COLACE CAP 100 MG PO SCH (21:00)
[2022-06-23] MEDS: FLOMAX PO SCH (21:00)
[2022-06-23] MEDS: CRESTOR TAB 10 MG PO SCH (21:01)
[2022-06-24] MEDS: XOPENEX 1.25 MG/3 ML NEBULE NEB SCH ×5 (00:06→17:35)
[2022-06-24] MEDS: FORTAZ or TAZICEF VIAL INJ IVP SCH ×3 (05:19→21:29)
[2022-06-24] MEDS: REQUIP PO SCH ×3 (05:20→21:29)
[2022-06-24] MEDS: SOLU-Medrol 40 MG VIAL IVP SCH ×3 (05:20→21:29)
[2022-06-24] MEDS: NS 1/2 1,000 ML IV 1,000 ML IV SCH ×2 (06:03→20:56)
--- NOTE | 2022-06-24 06:04 | RAD ---
HISTORYFollow-up pneumonia, shortness of breathSTUDYChest AP [id number] t is within normal limits in size. Ledy are normal. Aorta is calcified. Hyperinflation is present. Diffuse interstitial lung changes are present likely chronic. Superimposed more acute right basilar lung infiltrate is improved. Left lung base is now clear. Small right pleural effusion is present. No left pleural effusion is present. Bony thorax is unremarkable.IMPRESSIONImproving right basilar lung infiltrateResolved left basilar lung infiltrateHyperinflation with diffuse chronic appearing interstitial lung changes, stableElectronically signed by: KOREY NICOLE (Jun 24, 2022 06:02:03)
[2022-06-24 06:09] LABS: BASOPHILS % (AUTO) 0.2 % (0.2-1.0); EOSINOPHILS % (AUTO) 0.1 % (0.9-2.9); HEMATOCRIT 32.7 % (42.0-54.0); HEMOGLOBIN 10.9 g/dL (13.5-18.0); LYMPHOCYTES # (AUTO) 1.2 X10^3/uL (1.3-2.9); LYMPHOCYTES % (AUTO) 8.9 % (21.0-51.0); MEAN CORPUSCULAR HEMOGLOBIN 28.2 pg (27.0-34.0); MEAN CORPUSCULAR HGB CONC 33.4 g/dL (33.0-35.0); MEAN CORPUSCULAR VOLUME 84.5 fL (80.0-100.0); MEAN PLATELET VOLUME 8.4 fL (7.4-11.0); MONOCYTES # (AUTO) 0.7 x10^3/uL (0.3-0.8); MONOCYTES % (AUTO) 5.2 % (0.0-13.0); NEUTROPHILS # (AUTO) 11.3 x10^3/uL (2.2-4.8); NEUTROPHILS % (AUTO) 85.6 % (42.0-75.0); RED BLOOD COUNT 3.87 X10^6/uL (4.7-6.0); RED CELL DISTRIBUTION WIDTH 17.8 % (11.6-16.5); WHITE BLOOD COUNT 13.2 X10^3/uL (3.6-10.0)
[2022-06-24 06:24] LABS: ALANINE AMINOTRANSFERASE 57 Units/L (12-78); ALBUMIN 2.6 g/dL (3.4-5.0); ALKALINE PHOSPHATASE 42 Units/L (46-116); ASPARTATE AMINO TRANSFERASE 36 Units/L (15-37); BLOOD UREA NITROGEN 22 mg/dL (7-18); CALCIUM 7.1 mg/dL (8.5-10.1); CARBON DIOXIDE 37.7 mmol/L (21-32); CHLORIDE 95 mmol/L (98-107); COR CA(FOR HYPOALB) 8.2 mg/dL (8.5-10.1); COR NA(FOR HYPERGLY) 136 mmol/L (136-145); CREATININE 0.73 mg/dL (0.70-1.30); SODIUM 135 mmol/L (136-145); TOTAL PROTEIN 5.5 g/dL (6.4-8.2); eGFR NON BLACK RACES > 60 (>60)
[2022-06-24] MEDS: PULMICORT NEB TX 0.5 MG NEB SCH ×2 (08:00→20:54)
[2022-06-24] MEDS: TOPROL XL PO SCH (09:32)
[2022-06-24] MEDS: ANTIVERT TAB 25 MG PO SCH ×2 (09:32→20:56)
[2022-06-24] MEDS: MILK OF MAGNESIA PO SCH ×2 (09:33→20:57)
[2022-06-24] MEDS: PROTONIX TAB 40 MG PO SCH (09:33)
[2022-06-24] MEDS: ROBITUSSIN DM PO SCH ×4 (09:33→20:58)
[2022-06-24] MEDS: ASPIRIN EC 81 MG PO SCH (09:33)
[2022-06-24] MEDS: LASIX PO SCH (09:34)
[2022-06-24] MEDS: VSL#3 PO SCH (09:34)
[2022-06-24] MEDS: CARDIZEM CD 120 MG 24-HR PO SCH (09:35)
[2022-06-24] MEDS: LEVAQUIN PREMIX IV 500 MG 500 MG/100 ML BAG IV SCH (09:35)
[2022-06-24] MEDS: LOVENOX INJ 40 MG SYR SC SCH (09:35)
[2022-06-24] MEDS: SEROquel TAB 25 mg PO SCH ×2 (09:38→20:58)
--- NOTE | 2022-06-24 12:03 | PCM.PROG ---
Progress Note - Progress Note for Day of Date of Exam: 06/21/22 - Subjective Subjective: IS CURRENTLY INPATIENT STATUS FOR TREATMENT OF BILATERAL LOWER LOBE PNEUMONIA, RESPIRATORY FAILURE WITH HYPOXIA AND HYPRECAPNIA, HYPOKALEMIA, HTN, AND COPD. TODAY, HE IS ALERT, SITTING UP IN CHAIR ON MORNING ROUNDS. HE CONTINUES WITH COMPLAINTS OF A COUGH, SHORTNESS OF BREATH, AND G ENERALIZED WEAKNESS. PHYSICAL THERAPY HAS BEEN WORKING WITH PATIENT. HE DOES REQUIRE MODERATE ASSISTANCE FOR AMBULATION. ON EXAMINATION, HEART IS REGULAR IN RATE AND RHYTHM. BILATERAL LUNGS ARE NOTED WITH RHONCHI THROUGHOUT. ABDOMEN IS ROUND, SOFT, AND NON-TENDER WITH NORMAL BOWEL SOUNDS NOTED IN ALL QUADRANTS. TRACE LOWER EXTREMITY EDEMA NOTED. LAN CATHETER IS NOTED TO BEDSIDE DRAINAGE. HIS VITALS THIS MORNING ARE: 97.9-81-20-92%-133/86. HE IS CURRENTLY UTILIZING OXYGEN VIA NASAL CANNULA AT 3-4 LPM. OXYGEN SATURATIONS HAVE BEEN IN THE 90s THROUGHOUT THE NIGHT. LABS WERE OBTAINED. WBC 8.2, RBC 4.00, HGB 11.4, HCT 34.2, SODIUM 140, POTASSIUM 3.1, BUN 24, CREATININE 0.71, GLUCOSE 146, CALCIUM 7.4, ALK PHOS 39, TOTAL PROTEIN 6.0, ALBUMIN 2.7. SPUTUM CULTURE IS POSITIVE FOR GROWTH OF STREPTOCOCCUS PNEUMONIAE. CHEST XRAY REVEALED: Unchanged right basilar pneumonia. HE IS CURRENTLY RECEIVING 1/2NS AT 75 ML/HR, LEVAQUIN 500MG IV DAILY, FORTAZ 1G IV Q8H, SOLU-MEDROL 80MG IV Q8H, XOPENEX NEBS Q6H, PULMICORT NEBS BID, TUSSIONEX 5ML PO Q12H, LOVENOX 40MG SC DAILY, ROBITUSSIN DM 10ML PO QID, P ROBIOTICS, SEROQUEL 25MG PO BID, AND THE POTASSIUM AND MAGNESIUM PROTOCOLS. HIS HOME MEDICATIONS WERE ALSO RESUMED. WE WILL CONTINUE WITH CURRENT PLAN OF CARE TODAY. WE WILL BEGIN BLADDER TRAINING TO DISCONTINUE LAN. PHYSICAL THERAPY WILL WORK WITH PATIENT. OTHERWISE, WE WILL FOLLOW-UP WITH AM LABS AND CONTINUE TO MONITOR. TIME SPENT ON CLINICAL ASSESSMENT, REVIWING LABS AND IMAGING, DECISION MAKING, AND DOCUMENTATION GREATER THAN 45 MINUTES. - Past Medical Family Social History Past Med/Fam/Surg Hx: No changes since H&P Allergies: Allergies No Known Drug Allergies Allergy (Verified 06/13/22 17:39) - Review of Systems ROS: No change since H&P - Vital Signs and I&O's Vital Signs: Temperature 97.9 F Pulse Rate [Left Brachial] 98 Pulse Rate 101 Respiratory Rate 20 Blood Pressure [Left Arm] 153/89 Blood Pressure [Right Arm] 160/92 Blood Pressure 100/55 O2 Sat by Pulse Oximetry 92 Intake and Output: Intake & Output 06/22/22 06/23/22 06/24/22 06/25/22 11:59 11:59 11:59 11:59 Intake Total 1580 / 1580 1147 / 1147 1219 / 1219 Output Total 2785 / 2785 1680 / 1680 1000 / 1000 Balance -1205 / -1205 -533 / -533 219 / 219 - Physical Exam Oriented: Normal Eyes: Normal Ear: Normal Nose: Normal Throat: Normal Respiratory: Diminished, Rhonchi Cardiovascular: Normal : Normal Auscultation: Bowel Sounds: Normal Palpation: Normal Tenderness: Normal Skin: Normal Musculoskeletal: Normal Psychiatric: Normal Mood Description: Calm Affect: Normal Speech Pattern: Clear, Appropriate - Laboratory and Diagnostics Result Diagrams: 06/24/22 05:00 06/24/22 05:00 Labs: 06/13/22 17:54 Blood Blood Culture - Final 06/13/22 17:30 Blood Blood Culture - Final 06/13/22 18:05 Sputum - Expectorated Sputum Sputum Culture - Final Streptococcus Pneumoniae 06/13/22 18:05 Sputum - Expectorated Sputum - Final Laboratory WBC 13.2 X10^3/uL (3.6-10.0) H 06/24/22 05:00 RBC 3.87 X10^6/uL (4.7-6.0) L 06/24/22 05:00 Hgb 10.9 g/dL (13.5-18.0) L 06/24/22 05:00 Hct 32.7 % (42.0-54.0) L 06/24/22 05:00 MCV 84.5 fL (80.0-100.0) 06/24/22 05:00 MCH 28.2 pg (27.0-34.0) 06/24/22 05:00 MCHC 33.4 g/dL (33.0-35.0) 06/24/22 05:00 RDW 17.8 % (11.6-16.5) H 06/24/22 05:00 Plt Count 175 X10^3/uL (150.0-450.0) 06/24/22 05:00 Plt Count Comment Adequate (ADEQUATE) 06/23/22 05:21 MPV 8.4 fL (7.4-11.0) 06/24/22 05:00 Neut % (Auto) 85.6 % (42.0-75.0) H 06/24/22 05:00 Lymph % (Auto) 8.9 % (21.0-51.0) L 06/24/22 05:00 [place] % (Auto) 5.2 % (0.0-13.0) 06/24/22 05:00 Eos % (Auto) 0.1 % (0.9-2.9) L 06/24/22 05:00 Baso % (Auto) 0.2 % (0.2-1.0) 06/24/22 05:00 Neut # (Auto) 11.3 x10^3/uL (2.2-4.8) H 06/24/22 05:00 Lymph # (Auto) 1.2 X10^3/uL (1.3-2.9) L 06/24/22 05:00 [place] # (Auto) 0.7 x10^3/uL (0.3-0.8) 06/24/22 05:00 Eos # (Auto) 0.0 x10^3/uL (0.0-0.2) 06/24/22 05:00 Baso # (Auto) 0.0 X10^3/uL (0.0-0.1) 06/24/22 05:00 Absolute Nucleated RBC 0.0 /100WBC 06/24/22 05:00 Total Counted 100 06/23/22 05:21 Neutrophils % (Manual) 80 % (39-76) H 06/23/22 05:21 Band Neutrophils % 2 % (0-10) 06/23/22 05:21 Lymphocytes % (Manual) 14 % (13-43) 06/23/22 05:21 Monocytes % (Manual) 1 % (4-9) L 06/23/22 05:21 Eosinophils % (Manual) 1 % (0-6) 06/23/22 05:21 Metamyelocytes % 2 06/23/22 05:21 Plt Morphology Comment Normal (NORMAL) 06/23/22 05:21 RBC Morphology Abnormal (NORMAL) 06/23/22 05:21 Anisocytosis Slight A 06/23/22 05:21 D-Dimer 1.90 ug/ml (0.0-0.57) H 06/13/22 17:30 Sample Site Rr 06/14/22 05:00 ABG pH 7.460 (7.35-7.45) H 06/14/22 05:00 ABG pCO2 50.0 mmHg (35.0-45.0) H 06/14/22 05:00 ABG pO2 65.0 mmHg (80.0-100.0) L 06/14/22 05:00 ABG HCO3 35.6 mmol/L (22-26) H* 06/14/22 05:00 ABG O2 Saturation 94.0 % (90-100) 06/14/22 05:00 ABG Base Excess 10.2 mmol/L (-2.0-2.0) H 06/14/22 05:00 Anatoly Test Pos 06/14/22 05:00 A-a Gradient 129.0 mmHg 06/14/22 05:00 FiO2 36.0 06/14/22 05:00 Blood Gas Comments [facility] sw 06/14/22 05:00 Sodium 135 mmol/L (136-145) L 06/24/22 05:00 Corrected Sodium 136 mmol/L (136-145) 06/24/22 05:00 Potassium 3.4 mmol/L (3.5-5.1) L 06/24/22 05:00 Chloride 95 mmol/L (98-107) L 06/24/22 05:00 Carbon Dioxide 37.7 mmol/L (21-32) H 06/24/22 05:00 BUN 22 mg/dL (7-18) H 06/24/22 05:00 Creatinine 0.73 mg/dL (0.70-1.30) 06/24/22 05:00 Est GFR (MDRD) Af Amer > 60 (>60) 06/24/22 05:00 Est GFR (MDRD) Non-Af > 60 (>60) 06/24/22 05:00 Glucose 141 mg/dL (65-99) H 06/24/22 05:00 Calcium 7.1 mg/dL (8.5-10.1) L 06/24/22 05:00 Corrected Calcium 8.2 mg/dL (8.5-10.1) L 06/24/22 05:00 Magnesium 2.5 mg/dL (1.7-2.9) 06/22/22 05:13 Total Bilirubin 1.20 mg/dL (0.2-1.0) H 06/24/22 05:00 AST 36 Units/L (15-37) 06/24/22 05:00 ALT 57 Units/L (12-78) 06/24/22 05:00 Alkaline Phosphatase 42 Units/L (46-116) L 06/24/22 05:00 Creatine Kinase 73 Units/L (39-308) 06/13/22 17:54 Troponin I High Sens 16.9 ng/L (4.0-60.0) 06/13/22 17:54 C-Reactive Protein 30.10 mg/L (0-3.0) H 06/13/22 17:54 B-Natriuretic Peptide 429 pg/mL (0-79) H 06/14/22 05:51 Total Protein 5.5 g/dL (6.4-8.2) L 06/24/22 05:00 Albumin 2.6 g/dL (3.4-5.0) L 06/24/22 05:00 Globulin 2.9 g/dL (2.5-4.5) 06/24/22 05:00 Albumin/Globulin Ratio 0.9 Ratio (1.1-2.1) L 06/24/22 05:00 SARS-CoV-2 (PCR) Negative (NEGATIVE) 06/13/22 17:59 Influenza Type A (PCR) Negative (NEGATIVE) 06/13/22 17:59 Influenza Type B (PCR) Negative (NEGATIVE) 06/13/22 17:59 RSV (PCR) Negative (NEGATIVE) 06/13/22 17:59 - Plan (1) Pneumonia Status: Acute Qualifiers: Pneumonia type: due to unspecified organism Laterality: bilateral Lung location: unspecified part of lung Qualified Code(s): J18.9 - Pneumonia, unspecified organism Plan: 1/2NS AT 75 ML/HR, LEVAQUIN 500MG IV DAILY, FORTAZ 1G IV Q8H, SOLU-MEDROL 80MG IV Q8H, XOPENEX NEBS Q6H, PULMICORT NEBS BID, TUSSIONEX 5ML PO Q12H, LOVEN OX 40MG SC DAILY, ROBITUSSIN DM 10ML PO QID, SEROQUEL 25MG PO BID, PROBIOTICS, POTASSIUM AND MAGNESIUM PROTOCOLS. RESUME HOME MEDS (2) Respiratory failure with hypoxia and hypercapnia Status: Acute Qualifiers: Chronicity: acute Qualified Code(s): J96.01 - Acute respiratory failure with hypoxia; J96.02 - Acute respiratory failure with hypercapnia Plan: Continue supplemental O2 via nasal cannula. (3) Hypokalemia Status: Resolved (4) HTN (hypertension) Status: Chronic Qualifiers: Hypertension type: primary hypertension Qualified Code(s): I10 - Essential (primary) hypertension (5) COPD (chronic obstructive pulmonary disease) Status: Chronic Qualifiers: COPD type: unspecified COPD Qualified Code(s): J44.9 - Chronic obstructive pulmonary disease, unspecified Plan: Continue current treatment with no changes today.
--- NOTE | 2022-06-24 12:10 | PCM.PROG ---
Progress Note - Progress Note for Day of Date of Exam: 06/24/22 - Subjective Subjective: IS CURRENTLY INPATIENT STATUS FOR TREATMENT OF BILATERAL LOWER LOBE PNEUMONIA, RESPIRATORY FAILURE WITH HYPOXIA AND HYPRECAPNIA, HYPOKALEMIA, HTN, AND COPD. TODAY, HE IS ALERT, LYING IN BED ON MORNING ROUNDS. HE CONTINUES WITH COMPLAINTS OF A COUGH, SHORTNESS OF BREATH, AND GENERALIZED WEAKNESS. HE REPORTS NOT SLEEPING WELL THROUGHOUT THE NIGHT. PHYSICAL THERAPY HAS BEEN WORKING WITH PATIENT. HE DOES REQUIRE SOME ASSISTANCE FOR AMBULATION. ON FRIDAY, HE DID AMBULATE A FEW STEPS TO THE BATHROOM WITH ASSISTANCE BY ONE PERSON. ON EXAMINATION, HEART IS REGULAR IN RATE AND RHYTHM. BILATERAL LUNGS ARE NOTED WITH RHONCHI THROUGHOUT. ABDOMEN IS ROUND, SOFT, AND NON-TENDER WITH RALF L BOWEL SOUNDS NOTED IN ALL QUADRANTS. TRACE LOWER EXTREMITY EDEMA NOTED. LAN CATHETER IS NOTED TO BEDSIDE DRAINAGE. HIS VITALS THIS MORNING ARE: 97.9-98-20-92%-153/89. HE IS CURRENTLY UTILIZING OXYGEN VIA NASAL CANNULA AT 3-4 LPM. OXYGEN SATURATIONS HAVE BEEN IN THE 90s THROUGHOUT THE NIGHT. LABS WERE OBTAINED. WBC 13.2, RBC 3.87, HGB 10.9, HCT 32.7, SODIUM 135, POTASSIUM 3.4, CHLORIDE 95, CARBON DIOXIDE 37.7, BUN 22, CREATININE 0.73, GLUCOSE 141, CALCIUM 7.1, TOTAL BILI 1.20, AST 36, ALT 57, ALK PHOS 42, TOTAL PROTEIN 5.5, ALBUMIN 2.6. SPUTUM CULTURE IS POSITIVE FOR GROWTH OF STREPTOCOCCUS PNEUMONIAE. CHEST XRAY REVEALED: Improving right basilar lung infiltrate. Resolved left basilar lung infiltrate. Hyperinflation with diffuse chronic appearing interstitial lung changes, stable. HE IS CURRENTLY RECEIVING 1/2NS AT 75 ML/HR, LEVAQUIN 500MG IV DAILY, FORTAZ 1G IV Q8H, SOLU-MEDROL 80MG IV Q8H, XOPENEX NEBS Q6H, PULMICORT NEBS BID, TUSSIONEX 5ML PO Q12H, LASIX 40MG PO DAILY, LOVENOX 40MG SC DAILY, ROBITUSSIN DM 10ML PO QID, PROBIOTICS, SEROQUEL 25MG PO BID, AND THE POTASSIUM AND MAGNESIUM PROTOCOLS. HIS HOME MEDICATIONS WERE ALSO RESUMED. WE WILL CONTINUE WITH CURRENT PLAN OF CARE TODAY. WE DISCUSSED PATIENTS STATUS WITH HIS SON. DUE TO PERSISTENT WEAKNESS AND THE NEED FOR CONTINUED PHYSICAL THERAPY, WE WILL REFER PATIENT TO THE LONGTERM FOR PHYSICAL THERAPY AND REHAB. OT GABINO, PHYSICAL THERAPY WILL WORK WITH PATIENT TODAY. WE WILL FOLLOW-UP WITH AM LABS AND CONTINUE TO MONITOR. TIME SPENT ON CLINICAL ASSESSMENT, REVIWING LABS AND IMAGING, DECISION MAKING, AND DOCUMENTATION GREATER THAN 45 MINUTES. - Past Medical Family Social History Past Med/Fam/Surg Hx: No changes since H&P Allergies: Allergies No Known Drug Allergies Allergy (Verified 06/13/22 17:39) - Review of Systems ROS: No change since H&P - Vital Signs and I&O's Vital Signs: Temperature 97.9 F Pulse Rate [Left Brachial] 98 Pulse Rate 101 Respiratory Rate 20 Blood Pressure [Left Arm] 153/89 Blood Pressure [Right Arm] 160/92 Blood Pressure 100/55 O2 Sat by Pulse Oximetry 92 Intake and Output: Intake & Output 06/22/22 06/23/22 06/24/22 06/25/22 11:59 11:59 11:59 11:59 Intake Total 1580 / 1580 1147 / 1147 1219 / 1219 Output Total 2785 / 2785 1680 / 1680 1000 / 1000 Balance -1205 / -1205 -533 / -533 219 / 219 - Physical Exam Oriented: Normal Eyes: Normal Ear: Normal Nose: Normal Throat: Normal Respiratory: Diminished, Rhonchi Cardiovascular: Normal : Normal Auscultation: Bowel Sounds: Normal Palpation: Normal Tenderness: Normal Skin: Normal Musculoskeletal: Normal Psychiatric: Normal Mood Description: Calm Affect: Normal Speech Pattern: Clear, Appropriate - Laboratory and Diagnostics Result Diagrams: 06/24/22 05:00 06/24/22 05:00 Labs: 06/13/22 17:54 Blood Blood Culture - Final 06/13/22 17:30 Blood Blood Culture - Final 06/13/22 18:05 Sputum - Expectorated Sputum Sputum Culture - Final Streptococcus Pneumoniae 06/13/22 18:05 Sputum - Expectorated Sputum - Final Laboratory WBC 13.2 X10^3/uL (3.6-10.0) H 06/24/22 05:00 RBC 3.87 X10^6/uL (4.7-6.0) L 06/24/22 05:00 Hgb 10.9 g/dL (13.5-18.0) L 06/24/22 05:00 Hct 32.7 % (42.0-54.0) L 06/24/22 05:00 MCV 84.5 fL (80.0-100.0) 06/24/22 05:00 MCH 28.2 pg (27.0-34.0) 06/24/22 05:00 MCHC 33.4 g/dL (33.0-35.0) 06/24/22 05:00 RDW 17.8 % (11.6-16.5) H 06/24/22 05:00 Plt Count 175 X10^3/uL (150.0-450.0) 06/24/22 05:00 Plt Count Comment Adequate (ADEQUATE) 06/23/22 05:21 MPV 8.4 fL (7.4-11.0) 06/24/22 05:00 Neut % (Auto) 85.6 % (42.0-75.0) H 06/24/22 05:00 Lymph % (Auto) 8.9 % (21.0-51.0) L 06/24/22 05:00 [place] % (Auto) 5.2 % (0.0-13.0) 06/24/22 05:00 Eos % (Auto) 0.1 % (0.9-2.9) L 06/24/22 05:00 Baso % (Auto) 0.2 % (0.2-1.0) 06/24/22 05:00 Neut # (Auto) 11.3 x10^3/uL (2.2-4.8) H 06/24/22 05:00 Lymph # (Auto) 1.2 X10^3/uL (1.3-2.9) L 06/24/22 05:00 [place] # (Auto) 0.7 x10^3/uL (0.3-0.8) 06/24/22 05:00 Eos # (Auto) 0.0 x10^3/uL (0.0-0.2) 06/24/22 05:00 Baso # (Auto) 0.0 X10^3/uL (0.0-0.1) 06/24/22 05:00 Absolute Nucleated RBC 0.0 /100WBC 06/24/22 05:00 Total Counted 100 06/23/22 05:21 Neutrophils % (Manual) 80 % (39-76) H 06/23/22 05:21 Band Neutrophils % 2 % (0-10) 06/23/22 05:21 Lymphocytes % (Manual) 14 % (13-43) 06/23/22 05:21 Monocytes % (Manual) 1 % (4-9) L 06/23/22 05:21 Eosinophils % (Manual) 1 % (0-6) 06/23/22 05:21 Metamyelocytes % 2 06/23/22 05:21 Plt Morphology Comment Normal (NORMAL) 06/23/22 05:21 RBC Morphology Abnormal (NORMAL) 06/23/22 05:21 Anisocytosis Slight A 06/23/22 05:21 D-Dimer 1.90 ug/ml (0.0-0.57) H 06/13/22 17:30 Sample Site Rr 06/14/22 05:00 ABG pH 7.460 (7.35-7.45) H 06/14/22 05:00 ABG pCO2 50.0 mmHg (35.0-45.0) H 06/14/22 05:00 ABG pO2 65.0 mmHg (80.0-100.0) L 06/14/22 05:00 ABG HCO3 35.6 mmol/L (22-26) H* 06/14/22 05:00 ABG O2 Saturation 94.0 % (90-100) 06/14/22 05:00 ABG Base Excess 10.2 mmol/L (-2.0-2.0) H 06/14/22 05:00 Anatoly Test Pos 06/14/22 05:00 A-a Gradient 129.0 mmHg 06/14/22 05:00 FiO2 36.0 06/14/22 05:00 Blood Gas Comments [facility] 06/14/22 05:00 Sodium 135 mmol/L (136-145) L 06/24/22 05:00 Corrected Sodium 136 mmol/L (136-145) 06/24/22 05:00 Potassium 3.4 mmol/L (3.5-5.1) L 06/24/22 05:00 Chloride 95 mmol/L (98-107) L 06/24/22 05:00 Carbon Dioxide 37.7 mmol/L (21-32) H 06/24/22 05:00 BUN 22 mg/dL (7-18) H 06/24/22 05:00 Creatinine 0.73 mg/dL (0.70-1.30) 06/24/22 05:00 Est GFR (MDRD) Af Amer > 60 (>60) 06/24/22 05:00 Est GFR (MDRD) Non-Af > 60 (>60) 06/24/22 05:00 Glucose 141 mg/dL (65-99) H 06/24/22 05:00 Calcium 7.1 mg/dL (8.5-10.1) L 06/24/22 05:00 Corrected Calcium 8.2 mg/dL (8.5-10.1) L 06/24/22 05:00 Magnesium 2.5 mg/dL (1.7-2.9) 06/22/22 05:13 Total Bilirubin 1.20 mg/dL (0.2-1.0) H 06/24/22 05:00 AST 36 Units/L (15-37) 06/24/22 05:00 ALT 57 Units/L (12-78) 06/24/22 05:00 Alkaline Phosphatase 42 Units/L (46-116) L 06/24/22 05:00 Creatine Kinase 73 Units/L (39-308) 06/13/22 17:54 Troponin I High Sens 16.9 ng/L (4.0-60.0) 06/13/22 17:54 C-Reactive Protein 30.10 mg/L (0-3.0) H 06/13/22 17:54 B-Natriuretic Peptide 429 pg/mL (0-79) H 06/14/22 05:51 Total Protein 5.5 g/dL (6.4-8.2) L 06/24/22 05:00 Albumin 2.6 g/dL (3.4-5.0) L 06/24/22 05:00 Globulin 2.9 g/dL (2.5-4.5) 06/24/22 05:00 Albumin/Globulin Ratio 0.9 Ratio (1.1-2.1) L 06/24/22 05:00 SARS-CoV-2 (PCR) Negative (NEGATIVE) 06/13/22 17:59 Influenza Type A (PCR) Negative (NEGATIVE) 06/13/22 17:59 Influenza Type B (PCR) Negative (NEGATIVE) 06/13/22 17:59 RSV (PCR) Negative (NEGATIVE) 06/13/22 17:59 - Plan (1) Pneumonia Status: Acute Qualifiers: Pneumonia type: due to unspecified organism Laterality: bilateral Lung location: unspecified part of lung Qualified Code(s): J18.9 - Pneumonia, unspecified organism Plan: 1/2NS AT 75 ML/HR, LEVAQUIN 500MG IV DAILY, FORTAZ 1G IV Q8H, SOLU-MEDROL 80MG IV Q8H, XOPENEX NEBS Q6H, PULMICORT NEBS BID, LASIX 40MG PO DAILY, TUSSIONEX 5ML PO Q12H, LOVENOX 40MG SC DAILY, ROBITUSSIN DM 10ML PO QID, SEROQUEL 25MG PO BID, PROBIOTICS, POTASSIUM AND MAGNESIUM PROTOCOLS. RESUME HOME MEDS (2) Respiratory failure with hypoxia and hypercapnia Status: Acute Qualifiers: Chronicity: acute Qualified Code(s): J96.01 - Acute respiratory failure with hypoxia; J96.02 - Acute respiratory failure with hypercapnia Plan: Continue supplemental O2 via nasal cannula. (3) Hypokalemia Status: Resolved (4) HTN (hypertension) Status: Chronic Qualifiers: Hypertension type: primary hypertension Qualified Code(s): I10 - Essential (primary) hypertension (5) COPD (chronic obstructive pulmonary disease) Status: Chronic Qualifiers: COPD type: unspecified COPD Qualified Code(s): J44.9 - Chronic obstructive pulmonary disease, unspecified Plan: Continue current treatment with no changes today.
[2022-06-24] MEDS ORDERED: NS 1/2 1,000 ML IV 1,000 ML IV ONE (20:17)
[2022-06-24] MEDS: FLOMAX PO SCH (20:57)
[2022-06-24] MEDS: COLACE CAP 100 MG PO SCH (20:57)
[2022-06-24] MEDS: CRESTOR TAB 10 MG PO SCH (20:57)
[2022-06-24] MEDS: NEURONTIN CAP 300 MG PO SCH (20:58)
[2022-06-25] MEDS: XOPENEX 1.25 MG/3 ML NEBULE NEB SCH ×4 (00:43→17:45)
[2022-06-25] MEDS ORDERED: NS 100 ML IV 100 ML ONE (04:37)
[2022-06-25] MEDS: REQUIP PO SCH ×3 (05:00→21:13)
[2022-06-25] MEDS: FORTAZ or TAZICEF VIAL INJ IVP SCH ×3 (05:00→21:12)
[2022-06-25] MEDS: SOLU-Medrol 40 MG VIAL IVP SCH ×3 (05:00→21:13)
[2022-06-25 05:56] LABS: BASOPHILS % (AUTO) 0.1 % (0.2-1.0); HEMATOCRIT 32.1 % (42.0-54.0); HEMOGLOBIN 10.5 g/dL (13.5-18.0); LYMPHOCYTES # (AUTO) 1.2 X10^3/uL (1.3-2.9); LYMPHOCYTES % (AUTO) 9.9 % (21.0-51.0); MEAN CORPUSCULAR HEMOGLOBIN 28.1 pg (27.0-34.0); MEAN CORPUSCULAR HGB CONC 32.7 g/dL (33.0-35.0); MEAN CORPUSCULAR VOLUME 85.7 fL (80.0-100.0); MEAN PLATELET VOLUME 7.8 fL (7.4-11.0); MONOCYTES # (AUTO) 0.5 x10^3/uL (0.3-0.8); MONOCYTES % (AUTO) 3.8 % (0.0-13.0); NEUTROPHILS # (AUTO) 10.4 x10^3/uL (2.2-4.8); NEUTROPHILS % (AUTO) 86.2 % (42.0-75.0); RED BLOOD COUNT 3.74 X10^6/uL (4.7-6.0); RED CELL DISTRIBUTION WIDTH 18.2 % (11.6-16.5); WHITE BLOOD COUNT 12.1 X10^3/uL (3.6-10.0)
--- NOTE | 2022-06-25 06:08 | RAD ---
HISTORYFollow-up pneumonia, shortness of breathSTUDYChest AP [id number] heart is upper limits normal in size. No congestive heart failure is noted. Ledy are normal. Aorta is calcified. Hyperinflation remains present as do diffuse interstitial lung changes. Some residual right basilar lung infiltrate remains. Remainder of the lung eric appear free of acute infiltrates. 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
[2022-06-25 06:11] LABS: ALANINE AMINOTRANSFERASE 51 Units/L (12-78); ALBUMIN 2.4 g/dL (3.4-5.0); ALKALINE PHOSPHATASE 37 Units/L (46-116); ASPARTATE AMINO TRANSFERASE 28 Units/L (15-37); BLOOD UREA NITROGEN 20 mg/dL (7-18); CALCIUM 7.1 mg/dL (8.5-10.1); CARBON DIOXIDE 37.2 mmol/L (21-32); CHLORIDE 96 mmol/L (98-107); COR CA(FOR HYPOALB) 8.4 mg/dL (8.5-10.1); COR NA(FOR HYPERGLY) 136 mmol/L (136-145); CREATININE 0.63 mg/dL (0.70-1.30); SODIUM 135 mmol/L (136-145); TOTAL PROTEIN 5.2 g/dL (6.4-8.2); eGFR NON BLACK RACES > 60 (>60)
[2022-06-25] MEDS: PROTONIX TAB 40 MG PO SCH (08:28)
[2022-06-25] MEDS: LEVAQUIN PREMIX IV 500 MG 500 MG/100 ML BAG IV SCH (08:28)
[2022-06-25] MEDS: ROBITUSSIN DM PO SCH ×4 (08:28→20:36)
[2022-06-25] MEDS: MILK OF MAGNESIA PO SCH ×2 (08:28→20:36)
[2022-06-25] MEDS: LOVENOX INJ 40 MG SYR SC SCH (08:29)
[2022-06-25] MEDS: TOPROL XL PO SCH (08:29)
[2022-06-25] MEDS: VSL#3 PO SCH (08:29)
[2022-06-25] MEDS: SEROquel TAB 25 mg PO SCH ×2 (08:29→20:35)
[2022-06-25] MEDS: ANTIVERT TAB 25 MG PO SCH ×2 (08:29→20:35)
[2022-06-25] MEDS: LASIX PO SCH (08:29)
[2022-06-25] MEDS: ASPIRIN EC 81 MG PO SCH (08:29)
[2022-06-25] MEDS: CARDIZEM CD 120 MG 24-HR PO SCH (08:29)
[2022-06-25] MEDS: PULMICORT NEB TX 0.5 MG NEB SCH ×2 (08:32→20:45)
[2022-06-25] MEDS: NS 1/2 1,000 ML IV 1,000 ML IV SCH (10:50)
[2022-06-25] MEDS ORDERED: FLOMAX PO ONE (18:22)
[2022-06-25] MEDS ORDERED: FLOMAX ONE (18:23)
[2022-06-25] MEDS: NEURONTIN CAP 300 MG PO SCH (20:36)
[2022-06-25] MEDS: COLACE CAP 100 MG PO SCH (20:37)
[2022-06-25] MEDS: FLOMAX PO SCH (20:37)
[2022-06-25] MEDS: CRESTOR TAB 10 MG PO SCH (20:37)
[2022-06-26] MEDS: NS 1/2 1,000 ML IV 1,000 ML IV SCH (00:13)
[2022-06-26] MEDS: XOPENEX 1.25 MG/3 ML NEBULE NEB SCH ×2 (00:30→05:45)
[2022-06-26] MEDS: REQUIP PO SCH (05:00)
[2022-06-26] MEDS: FORTAZ or TAZICEF VIAL INJ IVP SCH (05:10)
[2022-06-26] MEDS: SOLU-Medrol 40 MG VIAL IVP SCH (05:19)
--- NOTE | 2022-06-26 06:10 | RAD ---
HISTORYPNEUMONIA F/U; SOB Relevant Clinical InformationSTUDYCHEST, 1 [id number]/2022FINDINGSThe trachea is midline. The cardiac silhouette is slightly enlarged.. Chronic interstitial lung changes with flattening of the diaphragm consistent with COPD is observed. The lungs are clear without focal infiltrate or effusion. The bony thorax is unremarkable.IMPRESSIONSlight cardiomegaly with COPD.No significant change from previous 06/25/2022.Electronically signed by: Kurtis Dickinson (Jun 26, 2022 06:08:57)
[2022-06-26 06:34] LABS: ALANINE AMINOTRANSFERASE 51 Units/L (12-78); ALBUMIN 2.5 g/dL (3.4-5.0); ALKALINE PHOSPHATASE 39 Units/L (46-116); ASPARTATE AMINO TRANSFERASE 23 Units/L (15-37); BASOPHILS % (AUTO) 0.1 % (0.2-1.0); BLOOD UREA NITROGEN 21 mg/dL (7-18); CALCIUM 7.1 mg/dL (8.5-10.1); CARBON DIOXIDE 40.1 mmol/L (21-32); CHLORIDE 96 mmol/L (98-107); COR CA(FOR HYPOALB) 8.3 mg/dL (8.5-10.1); COR NA(FOR HYPERGLY) 137 mmol/L (136-145); CREATININE 0.63 mg/dL (0.70-1.30); HEMATOCRIT 33.4 % (42.0-54.0); HEMOGLOBIN 11.1 g/dL (13.5-18.0); LYMPHOCYTES # (AUTO) 1.3 X10^3/uL (1.3-2.9); LYMPHOCYTES % (AUTO) 9.6 % (21.0-51.0); MEAN CORPUSCULAR HEMOGLOBIN 28.5 pg (27.0-34.0); MEAN CORPUSCULAR HGB CONC 33.2 g/dL (33.0-35.0); MEAN CORPUSCULAR VOLUME 85.8 fL (80.0-100.0); MEAN PLATELET VOLUME 8.4 fL (7.4-11.0); MONOCYTES # (AUTO) 0.6 x10^3/uL (0.3-0.8); MONOCYTES % (AUTO) 4.5 % (0.0-13.0); NEUTROPHILS # (AUTO) 11.9 x10^3/uL (2.2-4.8); NEUTROPHILS % (AUTO) 85.8 % (42.0-75.0); RED BLOOD COUNT 3.89 X10^6/uL (4.7-6.0); RED CELL DISTRIBUTION WIDTH 17.8 % (11.6-16.5); SODIUM 136 mmol/L (136-145); TOTAL PROTEIN 5.2 g/dL (6.4-8.2); WHITE BLOOD COUNT 13.8 X10^3/uL (3.6-10.0); eGFR NON BLACK RACES > 60 (>60)
[2022-06-26 07:29] LABS: BAND NEUTROPHILS % 2 % (0-10); PLATELET MORPHOLOGY COMMENT NORMAL (NORMAL)
[2022-06-26 07:30] LABS: ANISOCYTOSIS SLIGHT; BURR CELLS SLIGHT
[2022-06-26] MEDS: PULMICORT NEB TX 0.5 MG NEB SCH (08:32)
[2022-06-26 08:56] VITALS: BP 150/92
[2022-06-26] MEDS: LASIX PO SCH (08:57)
[2022-06-26] MEDS: ANTIVERT TAB 25 MG PO SCH (08:57)
[2022-06-26] MEDS: CARDIZEM CD 120 MG 24-HR PO SCH (08:57)
[2022-06-26] MEDS: ASPIRIN EC 81 MG PO SCH (08:57)
[2022-06-26] MEDS: LEVAQUIN PREMIX IV 500 MG 500 MG/100 ML BAG IV SCH (08:58)
[2022-06-26] MEDS: LOVENOX INJ 40 MG SYR SC SCH (08:58)
[2022-06-26] MEDS: VSL#3 PO SCH (08:59)
[2022-06-26] MEDS: PROTONIX TAB 40 MG PO SCH (08:59)
[2022-06-26] MEDS: ROBITUSSIN DM PO SCH (08:59)
[2022-06-26] MEDS: MILK OF MAGNESIA PO SCH (08:59)
[2022-06-26] MEDS: SEROquel TAB 25 mg PO SCH (09:00)
[2022-06-26] MEDS: TOPROL XL PO SCH (09:00)
--- NOTE | 2022-06-26 11:18 | PCM.PROG ---
Progress Note - Progress Note for Day of Date of Exam: 06/25/22 - Subjective Subjective: IS CURRENTLY INPATIENT STATUS FOR TREATMENT OF BILATERAL LOWER LOBE PNEUMONIA, RESPIRATORY FAILURE WITH HYPOXIA AND HYPRECAPNIA, HYPOKALEMIA, HTN, AND COPD. TODAY, HE IS ALERT, LYING IN BED ON MORNING ROUNDS. HE CONTINUES WITH COMPLAINTS OF A COUGH, SHORTNESS OF BREATH, AND GENERALIZED WEAKNESS. HE REPORTS NOT SLEEPING WELL THROUGHOUT THE NIGHT. PHYSICAL THERAPY HAS BEEN WORKING WITH PATIENT. HE DOES REQUIRE SOME ASSISTANCE FOR AMBULATION. ON EXAMINATION, HEART IS REGULAR IN RATE AND RHYTHM. BILATERAL LUNGS ARE NOTED WITH DIMINISHED LUNG SOUNDS THROUGHOUT. ABDOMEN IS ROUND, SOFT, AND NON-TENDER WITH NORMAL BOWEL SOUNDS NOTED IN ALL QUADRANTS. TRACE LOWER EXTREMITY EDEMA NOTED. LAN CATHETER IS NOTED TO BEDSIDE DRAINAGE. HIS VITALS THIS MORNING ARE: 97.3-76-20-91%-124/80. HE IS CURRENTLY UTILIZING OXYGEN VIA NASAL CANNULA AT 3-4 LPM. OXYGEN SATURATIONS HAVE BEEN IN THE 90s THROUGHOUT THE NIGHT. LABS WERE OBTAINED. WBC 12.1, RBC 3.74, HGB 10.5, HCT 32.1, PLT COUNT 145, SODIUM 135, POTASSIUM 4.2, CHLORIDE 96, CARBON DIOXIDE 37.2, BUN 20, CREATININE 0.63, GLUCOSE 142, CALCIUM 7.1, AST 28, ALT 51, ALK PHOS 37, TOTAL PROTEIN 5.2, ALBUMIN 2.4. SPUTUM CULTURE IS POSITIVE FOR GROWTH OF STREPTOCOCCUS PNEUMONIAE. CHEST XRAY REVEALED: No change residual right basilar lung infiltrate. No change hyperinflation with chronic interstitial lung changes. HE IS CURRENTLY RECEIVING 1/2NS AT 75 ML/HR, LEVAQUIN 500MG IV DAILY, FORTAZ 1G IV Q8H, SOLU-MEDROL 80MG IV Q8H, XOPENEX NEBS Q6H, PULMICORT NEBS BID, TUSSIONEX 5ML PO Q12H, LASIX 40MG PO DAILY, LOVENOX 40MG SC DAILY, ROBITUSSIN DM 10ML PO QID, PROBIOTICS, SEROQUEL 25MG PO BID, AND THE POTASSIUM AND MAGNESIUM PROTOCOLS. HIS HOME MEDICATIONS WERE ALSO RESUMED. WE WILL CONTINUE WITH CURRENT PLAN OF CARE TODAY. WE DISCUSSED PATIENTS STATUS WITH HIS SON. DUE TO PERSISTENT WEAKNESS AND THE NEED FOR CONTINUED PHYSICAL THERAPY, WE WILL REFER PATIENT TO THE DETENTION FOR PHYSICAL THERAPY AND REHAB. OTHERWISE, PHYSICAL THERAPY WILL WORK WITH PATIENT TODAY. WE WILL FOLLOW-UP WITH AM LABS AND CONTINUE TO MONITOR. WE PLAN FOR DISCHARGE TOMORROW. TIME SPENT ON CLINICAL ASSESSMENT, REVIWING LABS AND IMAGING, DECISION MAKING, AND DOCUMENTATION GREATER THAN 45 MINUTES. - Past Medical Family Social History Past Med/Fam/Surg Hx: No changes since H&P Allergies: Allergies No Known Drug Allergies Allergy (Verified 06/13/22 17:39) - Review of Systems ROS: No change since H&P - Vital Signs and I&O's Vital Signs: Temperature 97.4 F Pulse Rate [Left Brachial] 82 Pulse Rate 82 Respiratory Rate 20 Blood Pressure [Left Arm] 150/92 Blood Pressure [Right Arm] 134/86 Blood Pressure 100/55 O2 Sat by Pulse Oximetry 97 Intake and Output: Intake & Output 06/23/22 06/24/22 06/25/22 06/26/22 11:59 11:59 11:59 11:59 Intake Total 1147 / 1147 1219 / 1219 1460 / 1460 2680 / 2680 Output Total 1680 / 1680 1000 / 1000 450 / 450 300 / 300 Balance -533 / -533 219 / 219 1010 / 1010 2380 / 2380 - Physical Exam Oriented: Normal Eyes: Normal Ear: Normal Nose: Normal Throat: Normal Respiratory: Diminished, Rhonchi Cardiovascular: Normal : Normal Auscultation: Bowel Sounds: Normal Tenderness: Normal Skin: Normal Musculoskeletal: Normal Psychiatric: Normal Mood Description: Calm Affect: Normal Speech Pattern: Clear, Appropriate - Laboratory and Diagnostics Result Diagrams: 06/26/22 05:43 06/26/22 05:43 Labs: 06/13/22 17:54 Blood Blood Culture - Final 06/13/22 17:30 Blood Blood Culture - Final 06/13/22 18:05 Sputum - Expectorated Sputum Sputum Culture - Final Streptococcus Pneumoniae 06/13/22 18:05 Sputum - Expectorated Sputum - Final Laboratory WBC 13.8 X10^3/uL (3.6-10.0) H 06/26/22 05:43 RBC 3.89 X10^6/uL (4.7-6.0) L 06/26/22 05:43 Hgb 11.1 g/dL (13.5-18.0) L 06/26/22 05:43 Hct 33.4 % (42.0-54.0) L 06/26/22 05:43 MCV 85.8 fL (80.0-100.0) 06/26/22 05:43 MCH 28.5 pg (27.0-34.0) 06/26/22 05:43 MCHC 33.2 g/dL (33.0-35.0) 06/26/22 05:43 RDW 17.8 % (11.6-16.5) H 06/26/22 05:43 Plt Count 142 X10^3/uL (150.0-450.0) L 06/26/22 05:43 Plt Count Comment Decreased (ADEQUATE) 06/26/22 05:43 MPV 8.4 fL (7.4-11.0) 06/26/22 05:43 Neut % (Auto) 85.8 % (42.0-75.0) H 06/26/22 05:43 Lymph % (Auto) 9.6 % (21.0-51.0) L 06/26/22 05:43 [place] % (Auto) 4.5 % (0.0-13.0) 06/26/22 05:43 Eos % (Auto) 0.0 % (0.9-2.9) L 06/26/22 05:43 Baso % (Auto) 0.1 % (0.2-1.0) L 06/26/22 05:43 Neut # (Auto) 11.9 x10^3/uL (2.2-4.8) H 06/26/22 05:43 Lymph # (Auto) 1.3 X10^3/uL (1.3-2.9) 06/26/22 05:43 [place] # (Auto) 0.6 x10^3/uL (0.3-0.8) 06/26/22 05:43 Eos # (Auto) 0.0 x10^3/uL (0.0-0.2) 06/26/22 05:43 Baso # (Auto) 0.0 X10^3/uL (0.0-0.1) 06/26/22 05:43 Absolute Nucleated RBC 0.0 /100WBC 06/26/22 05:43 Total Counted 100 06/26/22 05:43 Neutrophils % (Manual) 74 % (39-76) 06/26/22 05:43 Band Neutrophils % 2 % (0-10) 06/26/22 05:43 Lymphocytes % (Manual) 18 % (13-43) 06/26/22 05:43 Monocytes % (Manual) 6 % (4-9) 06/26/22 05:43 Eosinophils % (Manual) 1 % (0-6) 06/23/22 05:21 Metamyelocytes % 2 06/23/22 05:21 Plt Morphology Comment Normal (NORMAL) 06/26/22 05:43 RBC Morphology Abnormal (NORMAL) 06/26/22 05:43 Anisocytosis Slight A 06/26/22 05:43 Bern Cells Slight A 06/26/22 05:43 D-Dimer 1.90 ug/ml (0.0-0.57) H 06/13/22 17:30 Sample Site Rr 06/14/22 05:00 ABG pH 7.460 (7.35-7.45) H 06/14/22 05:00 ABG pCO2 50.0 mmHg (35.0-45.0) H 06/14/22 05:00 ABG pO2 65.0 mmHg (80.0-100.0) L 06/14/22 05:00 ABG HCO3 35.6 mmol/L (22-26) H* 06/14/22 05:00 ABG O2 Saturation 94.0 % (90-100) 06/14/22 05:00 ABG Base Excess 10.2 mmol/L (-2.0-2.0) H 06/14/22 05:00 Anatoly Test Pos 06/14/22 05:00 A-a Gradient 129.0 mmHg 06/14/22 05:00 FiO2 36.0 06/14/22 05:00 Blood Gas Comments [facility] 06/14/22 05:00 Sodium 136 mmol/L (136-145) 06/26/22 05:43 Corrected Sodium 137 mmol/L (136-145) 06/26/22 05:43 Potassium 3.9 mmol/L (3.5-5.1) 06/26/22 05:43 Chloride 96 mmol/L (98-107) L 06/26/22 05:43 Carbon Dioxide 40.1 mmol/L (21-32) H 06/26/22 05:43 BUN 21 mg/dL (7-18) H 06/26/22 05:43 Creatinine 0.63 mg/dL (0.70-1.30) L 06/26/22 05:43 Est GFR (MDRD) Af Amer > 60 (>60) 06/26/22 05:43 Est GFR (MDRD) Non-Af > 60 (>60) 06/26/22 05:43 Glucose 129 mg/dL (65-99) H 06/26/22 05:43 Calcium 7.1 mg/dL (8.5-10.1) L 06/26/22 05:43 Corrected Calcium 8.3 mg/dL (8.5-10.1) L 06/26/22 05:43 Magnesium 2.5 mg/dL (1.7-2.9) 06/22/22 05:13 Total Bilirubin 1.00 mg/dL (0.2-1.0) 06/26/22 05:43 AST 23 Units/L (15-37) 06/26/22 05:43 ALT 51 Units/L (12-78) 06/26/22 05:43 Alkaline Phosphatase 39 Units/L (46-116) L 06/26/22 05:43 Creatine Kinase 73 Units/L (39-308) 06/13/22 17:54 Troponin I High Sens 16.9 ng/L (4.0-60.0) 06/13/22 17:54 C-Reactive Protein 30.10 mg/L (0-3.0) H 06/13/22 17:54 B-Natriuretic Peptide 429 pg/mL (0-79) H 06/14/22 05:51 Total Protein 5.2 g/dL (6.4-8.2) L 06/26/22 05:43 Albumin 2.5 g/dL (3.4-5.0) L 06/26/22 05:43 Globulin 2.7 g/dL (2.5-4.5) 06/26/22 05:43 Albumin/Globulin Ratio 0.9 Ratio (1.1-2.1) L 06/26/22 05:43 SARS-CoV-2 (PCR) Negative (NEGATIVE) 06/13/22 17:59 Influenza Type A (PCR) Negative (NEGATIVE) 06/13/22 17:59 Influenza Type B (PCR) Negative (NEGATIVE) 06/13/22 17:59 RSV (PCR) Negative (NEGATIVE) 06/13/22 17:59 - Plan (1) Pneumonia Status: Acute Qualifiers: Pneumonia type: due to unspecified organism Laterality: bilateral Lung location: unspecified part of lung Qualified Code(s): J18.9 - Pneumonia, unspecified organism Plan: 1/2NS AT 75 ML/HR, LEVAQUIN 500MG IV DAILY, FORTAZ 1G IV Q8H, SOLU-MEDROL 80MG IV Q8H, XOPENEX NEBS Q6H, PULMICORT NEBS BID, LASIX 40MG PO DAILY, TUSSIONEX 5ML PO Q12H, LOVENOX 40MG SC DAILY, ROBITUSSIN DM 10ML PO QID, SEROQUEL 25MG PO BID, PROBIOTICS, POTASSIUM AND MAGNESIUM PROTOCOLS. RESUME HOME MEDS (2) Respiratory failure with hypoxia and hypercapnia Status: Acute Qualifiers: Chronicity: acute Qualified Code(s): J96.01 - Acute respiratory failure with hypoxia; J96.02 - Acute respiratory failure with hypercapnia Plan: Continue supplemental O2 via nasal cannula. (3) Hypokalemia Status: Resolved (4) HTN (hypertension) Status: Chronic Qualifiers: Hypertension type: primary hypertension Qualified Code(s): I10 - Essential (primary) hypertension (5) COPD (chronic obstructive pulmonary disease) Status: Chronic Qualifiers: COPD type: unspecified COPD Qualified Code(s): J44.9 - Chronic obstructive pulmonary disease, unspecified Plan: Continue current treatment with no changes today.
[2022-06-26] MEDS ORDERED: FORTAZ or TAZICEF VIAL INJ 1 G in NS 100 ML IV 100 ML IV SCH (14:00)
== END 2022-06-26 10:15 | DRG 193 ==
LOC: U 17:19 → MED/SURG 19:55
PROVIDERS: ADMIT Internal Medicine; ATTEND Internal Medicine
DX: J96.02 Acute respiratory failure with hypercapnia; M54.59 Other low back pain; J96.01 Acute respiratory failure with hypoxia; R53.1 Weakness; I10 Essential (primary) hypertension; J44.9 Chronic obstructive pulmonary disease, unspecified; J13 Pneumonia due to Streptococcus pneumoniae; Z20.822 Contact with and (suspected) exposure to COVID-19; E87.6 Hypokalemia